=== PATIENT | female | born 1990 | race Caucasian/White ===

== ENCOUNTER 2018-09-04 09:59 | Observation (INO) | payer OTHER ==
[~2018-09-04] VITALS: Ht 165.1 cm; Wt 78.0 kg
--- NOTE | 2018-09-04 09:59 | NUR ---
RHODA LEDEZMA presented to unit from Home, with c/o SWELLING. RHODA LEDEZMA weighed, gowned, voided, and to bed. EFHM and TOCO applied, VS taken. RHODA LEDEZMA oriented to bed controls, call light, TV, heat, and A/C controls.
[2018-09-04 10:03] VITALS: BP 135/65
[2018-09-04 10:51] LABS: BILIRUBIN,URINE NEGATIVE (NEGATIVE); CLARITY,URINE CLEAR; COLOR,URINE YELLOW; GLUCOSE, URINE (UA) NEGATIVE (NEGATIVE); KETONES,URINE NEGATIVE (NEGATIVE); LEUKOCYTE ESTERASE ,URINE 1+ (NEGATIVE); NITRITE,URINE NEGATIVE (NEGATIVE); PH,URINE 7 (5-9); PROTEIN,URINE NEGATIVE (NEGATIVE); UROBILINOGEN,URINE NORMAL (NORMAL)
[2018-09-04 11:01] LABS: BACTERIA,URINE NEGATIVE /HPF
--- NOTE | 2018-09-04 11:20 | NUR ---
Dr. Delcid notified of patient's arrival and complaints. New orders received.
[2018-09-04 11:30] VITALS: BP 118/60
[2018-09-04] MEDS: NS IV 1000 ML 1,000 ML IV SCH (12:31)
[2018-09-04 12:57] LABS: BASOPHILS % (AUTO) 0 % (0-10); EOSINOPHILS % (AUTO) 0 % (0-10); HEMATOCRIT 35 % (35-52); HEMOGLOBIN 11.6 G/DL (11.5-16.0); LYMPHOCYTES # (AUTO) 1.3 X 10^3 (1.0-4.0); LYMPHOCYTES % (AUTO) 10 % (12-44); MEAN CORPUSCULAR HEMOGLOBIN 31 PG (25-34); MEAN CORPUSCULAR HGB CONC 33 G/DL (32-36); MEAN CORPUSCULAR VOLUME 94 FL (80-99); MEAN PLATELET VOLUME 10.7 FL (7.4-10.4); MONOCYTES # (AUTO) 0.4 X 10^3 (0.0-1.0); MONOCYTES % (AUTO) 3 % (0-12); NEUTROPHILS % (AUTO) 86 % (42-75); PLATELET COUNT 355 10^3/uL (130-400); WHITE BLOOD COUNT 12.8 10^3/uL (4.3-11.0)
[2018-09-04] MEDS: CLINDAMYCIN 600 MG/50 ML IVPB 50 ML IV SCH ×2 (13:06→22:09)
--- NOTE | 2018-09-04 13:06 | NUR ---
Cleocin IV up and infusing per order.
[2018-09-04 13:11] LABS: ALANINE AMINOTRANSFERASE 14 U/L (0-55); ALBUMIN 3.2 GM/DL (3.2-4.5); ALKALINE PHOSPHATASE 206 U/L (40-136); BILIRUBIN,TOTAL 0.5 MG/DL (0.1-1.0); BUN/CREATININE RATIO 8; CALCIUM 9.1 MG/DL (8.5-10.1); CARBON DIOXIDE 20 MMOL/L (21-32); CHLORIDE 110 MMOL/L (98-107); CREATININE SERUM 0.65 MG/DL (0.60-1.30); GFR ESTIMATED > 60; GLUCOSE 75 MG/DL (70-105); POTASSIUM 3.4 MMOL/L (3.6-5.0); SODIUM 139 MMOL/L (135-145); TOTAL PROTEIN 6.2 GM/DL (6.4-8.2)
[2018-09-04] MEDS ORDERED: ACETAMINOPHEN 500 MG TAB (TYLENOL) PO PRN (13:30)
--- NOTE | 2018-09-04 13:52 | NUR ---
Tylenol 500mg PO given at this time.
[2018-09-04 13:55] LABS: BAND NEUTROPHILS 0 %; BASOPHILS % (MANUAL) 0 %; EOSINOPHILS % (MANUAL) 0 %; LYMPHOCYTES % (MANUAL) 8 %; MONOCYTES % (MANUAL) 5 %; NEUTROPHILS % (MANUAL) 87 %; RBC MORPH NORMAL
[2018-09-04 13:58] LABS: ERYTHROCYTE SEDIMENTATION RATE 56 MM/HR (0-20)
[2018-09-04] MEDS ORDERED: HYDROcodone/APAP 7.5 MG/325 MG (LORTAB, LORCET PLUS) TABLET PO ONE ×2 (14:27→14:30)
[2018-09-04] MEDS ORDERED: predniSONE 20 MG TAB ONE (14:27)
[2018-09-04] MEDS: predniSONE 20 MG TAB PO SCH (14:33)
--- NOTE | 2018-09-04 14:33 | NUR ---
Lorcet 1 PO and Prednisone 40mg PO given at this time.
--- NOTE | 2018-09-04 15:55 | History & Physical ---
HPI History of Present Illness: 27 yo G5T4 currently at 36 weeks gestation with complaints of feet pain and burning. She is not with contractions. She reports the feet started bothering her within the last 24 hours. She denies any external chemicals, lotions, or new clothing. She denies fever. She has no idea if she has an autoimmune process. Her mother has Sjorgens syndrome. Source: patient Exam Limitations: no limitations Date seen by provider: Sep 04, 2018 Time Seen by Provider: 15:00 Attending Physician Heather Melara MD PCP Heather Melara MD Consult Date of Admission Home Medications Home Medications Reviewed patient Home Medication Reconciliation performed by pharmacy medication reconciliations electronic lab technician and/or nursing. Patients Allergies have been reviewed. Allergies Coded Allergies: cefuroxime (Verified Allergy, Unknown, Rash, 09/04/18) iodine (Verified Allergy, Unknown, Rash, 09/04/18) latex (Verified Allergy, Unknown, Rash, 09/04/18) [id number] Hx Patient Social History Marrital Status: civil union Number of Children: 4 Recreational Drug Use: Yes (in past) Recent Foreign Travel: No Contact w/other who traveled: No Recent Infectious Disease Expo: No Physical Abuse Screen: Yes (FOB) Sexual Abuse: No Review of Systems (CHC) Constitutional: see HPI Reviewed Test Results Reviewed Test Results Lab Laboratory Tests Test 09/04/18 10:20 09/04/18 12:35 Range/Units Urine Color YELLOW Urine Clarity CLEAR Urine pH 7 5-[address] 1.005 L 1.016-1.022 Urine Protein NEGATIVE NEGATIVE Urine Glucose (UA) NEGATIVE NEGATIVE Urine Ketones NEGATIVE NEGATIVE Urine Nitrite NEGATIVE NEGATIVE Urine Bilirubin NEGATIVE NEGATIVE Urine Urobilinogen NORMAL NORMAL MG/DL Urine Leukocyte Esterase 1+ H NEGATIVE Urine RBC (Auto) NEGATIVE NEGATIVE Urine RBC NONE /HPF Urine WBC NONE /HPF Urine Squamous Epithelial Cells 10-25 H /HPF Urine Crystals NONE /LPF Urine Bacteria NEGATIVE /HPF Urine Casts NONE /LPF Urine Mucus NEGATIVE /LPF Urine Culture Indicated NO White Blood Count 12.8 H 4.3-11.0 10^3/uL Red Blood Count 3.72 L 4.35-5.85 10^6/uL Hemoglobin 11.6 11.5-16.0 G/DL Hematocrit 35 35-52 % Mean Corpuscular Volume 94 80-99 FL Mean Corpuscular Hemoglobin 31 25-34 PG Mean Corpuscular Hemoglobin Concent 33 32-36 G/DL Red Cell Distribution Width 13.0 10.0-14.5 % Platelet Count 355 130-400 10^3/uL Mean Platelet Volume 10.7 H 7.4-10.4 FL Neutrophils (%) (Auto) 86 H 42-75 % Lymphocytes (%) (Auto) 10 L 12-44 % Monocytes (%) (Auto) 3 0-12 % Eosinophils (%) (Auto) 0 0-10 % Basophils (%) (Auto) 0 0-10 % Neutrophils # (Auto) 11.0 H 1.8-7.8 X 10^3 Lymphocytes # (Auto) 1.3 1.0-4.0 X 10^3 Monocytes # (Auto) 0.4 0.0-1.0 X 10^3 Eosinophils # (Auto) 0.0 0.0-0.3 10^3/uL Basophils # (Auto) 0.0 0.0-0.1 10^3/uL Neutrophils % (Manual) 87 % Lymphocytes % (Manual) 8 % Monocytes % (Manual) 5 % Eosinophils % (Manual) 0 % Basophils % (Manual) 0 % Band Neutrophils 0 % Blood Morphology Comment NORMAL Erythrocyte Sedimentation Rate 56 H 0-20 MM/HR Sodium Level 139 135-145 MMOL/L Potassium Level 3.4 L 3.6-5.0 MMOL/L Chloride Level 110 H 98-107 MMOL/L Carbon Dioxide Level 20 L 21-32 MMOL/L Anion Gap 9 5-14 MMOL/L Blood Urea Nitrogen 5 L 7-18 MG/DL Creatinine 0.65 0.60-1.30 MG/DL Estimat Glomerular Filtration Rate > 60 BUN/Creatinine Ratio 8 Glucose Level 75 70-105 MG/DL Calcium Level 9.1 8.5-10.1 MG/DL Corrected Calcium 9.7 8.5-10.1 MG/DL Total Bilirubin 0.5 0.1-1.0 MG/DL Aspartate Amino Transf (AST/SGOT) 14 5-34 U/L Alanine Aminotransferase (ALT/SGPT) 14 0-55 U/L Alkaline Phosphatase 206 H 40-136 U/L C-Reactive Protein High Sensitivity 1.81 H 0.00-0.50 MG/DL Total Protein 6.2 L 6.4-8.2 GM/DL Albumin 3.2 3.2-4.5 GM/DL Physical Exam-([facility]) Physical Exam Vital Signs VS - Last 72 Hours, by Label 09/04/18 10:03 Temp 98.0 Pulse 99 Resp 18 B/P (MAP) 135/65 (88) O2 Delivery Room Air Capillary Refill : General Appearance: mild distress (due to feet pain with pressure) HEENT: pharynx normal Neck: supple Respiratory: lungs clear Cardiovascular: regular rate, rhythm Gastrointestinal: soft Back: normal inspection Extremities: normal capillary refill, other (feet are mildly swollen and erythema noted encompassing the entire foot at distal legs. Heat noted to touch.) Assessment/Plan Assessment/Plan Admission Dx 1. Bilateral lower extremities swelling and inflammation--ddx of cellulitis vs vascultis vs swelling of term 2. IUP at 36 weeks gestation, non-labor Admission Status: Observation Assessment & Plan 1. Bilateral lower extremities swelling and inflammation--ddx of cellulitis vs vascultis vs swelling of term -admit for observation -IVFs at 80cc/hr -KEVIN pending -sed rate and crp indicate an inflammatory process. Will cover with prednisone 40mg po q day. -with possiblity of infection/cellulitis, she was placed on cleocin (since allergic to cephalosporins) 2. IUP at 36 weeks gestation, non-labor -NST q day HEATHER EMLARA MD Sep 04, 2018 15:55
--- NOTE | 2018-09-04 16:00 | NUR ---
Patient transferred to room 302. Patient oriented to room.
[2018-09-04 18:57] LABS: AMPHETAMINE SCREEN, URINE NEGATIVE (NEGATIVE); BARBITURATE SCREEN URINE NEGATIVE (NEGATIVE); BENZODIAZEPINES SCREEN URINE NEGATIVE (NEGATIVE); CANNABINOID SCREEN, URINE POSITIVE (NEGATIVE); COCAINE SCREEN URINE NEGATIVE (NEGATIVE); METHADONE STAT NEGATIVE (NEGATIVE); METHAMPHETAMINE SCREEN URINE S NEGATIVE (NEGATIVE); OPIATE SCREEN URINE NEGATIVE (NEGATIVE); OXYCODONE STAT NEGATIVE (NEGATIVE); PROPOXYPHENE STAT NEGATIVE (NEGATIVE); TRICYCLIC ANTIDEPRESSANTS SCRE NEGATIVE (NEGATIVE)
--- NOTE | 2018-09-04 19:30 | NUR ---
Report to Megan Richardson RN.
[2018-09-04] MEDS ORDERED: MELA10TA2 PO (19:42)
[2018-09-04] MEDS ORDERED: PREN1TAB79 PO (19:42)
[2018-09-04] MEDS ORDERED: DIPH25CA79 PO (19:42)
[2018-09-04] MEDS ORDERED: HYDR50CA PO (19:42)
--- NOTE | 2018-09-04 20:26 | NUR ---
Pt ambulating in halls at this time with s.o, no ss distress noted.
[2018-09-04] MEDS ORDERED: ZOLPIDEM 5 MG (AMBIEN) TAB ONE (22:10)
[2018-09-04] MEDS ORDERED: ZOLPIDEM 5 MG (AMBIEN) TAB PO PRN (22:15)
[2018-09-04 22:33] VITALS: BP 120/61
[2018-09-04] MEDS ORDERED: NS IV 1000 ML 1,000 ML IV SCH ×2 (23:00)
[2018-09-05] MEDS: NS IV 1000 ML 1,000 ML IV SCH (02:17)
[2018-09-05] MEDS: CLINDAMYCIN 600 MG/50 ML IVPB 50 ML IV SCH (07:31)
--- NOTE | 2018-09-05 07:40 | NUR ---
DR. MELARA HERE TO SEE PT. PLAN FOR DISCHARGE. AMBULATING IN THE [place]. STATES FEELING BETTER.
--- NOTE | 2018-09-05 08:07 | NUR ---
EFM APPLIED FOR NST. VERY ACTIVE FETUS.
--- NOTE | 2018-09-05 08:10 | NUR ---
A.M. ASSESSMENT COMPLETED. VSS.
[2018-09-05 08:11] VITALS: BP 126/69
[2018-09-05] MEDS ORDERED: PRD20T PO (08:24)
[2018-09-05] MEDS ORDERED: CLIN300C3 PO (08:24)
--- NOTE | 2018-09-05 08:26 | Discharge Inst-Simple/Standard ---
Discharge Inst-Standard Discharge Medications New, Converted or Re-Newed RX: Transmitted to Pharmacy Patient Instructions/Follow Up Plan of Care/Instructions/FU: FU with Dr Melara this Friday at [facility]. Take 2 (total of 40mg) prednisone each day for 3 days. Take Cleocin as instructed. Activity as Tolerated: Yes Discharge Diet: Regular Diet Return to The Hospital For: Fever or worseing lower extremity pain HETAHER MELARA MD Sep 05, 2018 08:26
--- NOTE | 2018-09-05 08:32 | Discharge Summary ---
Diagnosis/Chief Complaint Date of Admission September 04, 2018 Date of Discharge September 05, 2018 Admission Diagnosis Admission Diagnosis 1. Lower extremity--vasculitis 2. IUP at 36 weeks. Discharge Diagnosis 1. Lower extremity--vasculitis 2. IUP at 36 weeks. Chief Complaint/HPI Chief Complaint/HPI 27 yo G5T4 currently at 36 weeks gestation with complaints of feet pain and burning. She is not with contractions. She reports the feet started bothering her within the last 24 hours. She denies any external chemicals, lotions, or new clothing. She denies fever. She has no idea if she has an autoimmune process. Her mother has Sjorgens syndrome. Discharge Summary-Simple/Stand Consultations Discharge Physical Examination Allergies: Coded Allergies: cefuroxime (Verified Allergy, Unknown, Rash, 09/04/18) iodine (Verified Allergy, Unknown, Rash, 09/04/18) latex (Verified Allergy, Unknown, Rash, 09/04/18) Vitals & I&Os Vital Sign - Last 12Hours Date Time Temp Pulse Resp B/P (MAP) Pulse Ox O2 Delivery O2 Flow Rate FiO2 09/05/18 08:11 98.5 74 18 126/69 (88) 99 Room Air General Appearance: No Acute Distress Respiratory: Clear to Auscultation Cardiovascular: Regular Rate Abdominal: Soft Extremities: Other (Erythema and swelling markedly down of the distal legs and feet. Pain is minimal) Neuro: Normal Gait Psych/Mental Status: Mental Status NL Hospital Course Was the Problem List Reviewed?: Yes Patient was admitted for observation during the afternoon of September 04, 2018. At that time patient was felt to have either cellulitis or vasculitis of the lower extremities primarily involving the feet as well as the distal legs. Patient was started on Cleocin 600 mg IV every 8 hours. She was also given a dose of 40 mg prednisone. monitor was reactive. There was no contractions. Throughout the late p.m. of September 04 in frameman of September 05 patient had markedly improvement of the lower extremity erythema and heat. In the morning she was walking and in no discomfort. She was felt ready for dismissal with follow-up in one week at the clinic at [facility]. She will be discharged to home on prednisone 40 mg which she will take daily for 3 days and also Cleocin 300 mg twice daily for the next week. All questions answered. Discharge Instructions to patient/family Please see electronic discharge instructions given to patient. Discharge Medications Reviewed and agree with Discharge Medication list on patient's Discharge Instruction sheet HEATHER MELARA MD Sep 05, 2018 08:32
[2018-09-05] MEDS ORDERED: ZOLP5TAB PO (08:36)
[2018-09-05 08:37] VITALS: BP 126/69
--- NOTE | 2018-09-05 08:45 | NUR ---
ENTERED ROOM TO FIND PT NOT IN ROOM OR ON MONITOR. GOWN AND MONITORS ON THE FLOOR.
[2018-09-05] MEDS ORDERED: predniSONE 20 MG TAB ONE (08:58)
--- NOTE | 2018-09-05 09:10 | NUR ---
PT AND S.O. RETURNED TO ROOM. PREPARING FOR DISCHARGE. STATES HAD BEEN DOWNSTAIRS.
[2018-09-05] MEDS: predniSONE 20 MG TAB PO SCH (09:25)
--- NOTE | 2018-09-05 09:30 | NUR ---
DISCHARGE INSTRUCTIONS REVIEWED WITH COPY TO PT. STATES UNDERSTANDING OF ALL INSTRUCTIONS AND NEED TO F/U SCHEDULED AND NEEDED.
[2018-09-05 09:35] VITALS: BP 126/69
--- NOTE | 2018-09-05 09:35 | NUR ---
DISMISSED AMB FROM [facility] IN STABLE CONDITION TO [facility]ILY [facility] BY RADHA SALCIDO.
--- OUTSIDE RECORDS SUMMARY | 2018-09-11 19:23 | XMS REPORT ---
Author Author Dora Khan [facility] Address [address] [place], [place] [id number] Care Team Providers Care Doctor Osteopathic Name Role Phone Dora Khan PCP Ulices Winter PreferredProvider Allergies and Adverse Reactions Name Reaction Notes Ceftin fever Latex burning Plan of Treatment Planned Activity Comments Planned Date Planned Time Plan/Goal Hx of pre-term delivery x2, Hep C carrier, child with spina bifida, meth abuse and late care 05/18/2018 10:45 AM Hepatitis C Medications Active Name Start Date Estimated Completion Date SIG Comments Vitamin oral cetirizine 10 mg oral tablet 07/13/2018 11/10/2018 take 1 tablet (10 mg) by oral route once daily for 30 days Name Start Date Expiration Date SIG Comments hydrocodone-acetaminophen 10-325 mg oral tablet 06/07/2014 take 1 tablet by oral route 2 times a day Xanax 1 mg oral tablet 06/07/2014 take 1 tablet by oral route 2 times a day Vistaril 50 mg oral capsule 07/05/2014 08/04/2014 take 1 capsule by oral route 3 times a day as needed for 30 days azithromycin 250 mg oral tablet 08/29/2014 09/03/2014 take 2 tablets (500 mg) by oral route once daily for 1 day then 1 tablet (250 mg) by oral route once daily for 4 days Flagyl 500 mg oral tablet 09/19/2014 09/26/2014 take 1 tablet (500 mg) by oral route 2 times per day for 7 days clindamycin HCl 300 mg oral capsule 12/03/2014 12/10/2014 take 1 capsule (300 mg) by oral route 2 times per day for 7 days Ambien 5 mg oral tablet 03/20/2015 take 1 tablet by oral route once a day (at bedtime) as needed Xanax 1 mg oral tablet 10/04/2015 11/03/2015 take 1 tablet by oral route 3 times a day for 30 days azithromycin 250 mg oral tablet 05/07/2016 05/12/2016 take 2 tablets (500 mg) by oral route once daily for 1 day then 1 tablet (250 mg) by oral route once daily for 4 days Flonase Allergy Relief 50 mcg/actuation nasal spray,suspension 05/07/2016 inhale 1 spray (50 mcg) in each nostril by intranasal route once daily Fetzima 40 mg oral capsule,extended release 24 hr 09/16/2016 12/15/2016 take 1 capsule (40 mg) by oral route once daily at approximately the same time each day for 30 days Keflex 500 mg oral capsule 12/04/2016 take 1 capsule by oral route 3 times a day Bactrim DS 800-160 mg oral tablet 12/04/2016 take 1 tablet by oral route twice daily for 7 days mupirocin 2 % topical ointment 10/07/2017 10/12/2017 apply a small amount to the affected area by topical route 3 times per day for 5 days Bactrim DS 800-160 mg oral tablet 10/10/2017 10/20/2017 take 1 tablet by oral route every 12 hours for 10 days Klonopin 1 mg oral tablet 11/17/2017 12/17/2017 take 1 tablet (1 mg) by oral route 3 times per day for 30 days buspirone 10 mg oral tablet 01/08/2018 02/07/2018 take 1 tablet (10 mg) by oral route 3 times per day for 30 days hydroxyzine HCl 25 mg oral tablet 01/08/2018 02/07/2018 take 1 tablet (25 mg) by oral route 3 times per day as needed for 30 days Bonjesta 20-20 mg oral tablet,IR,delayed rel,biphasic 04/15/2018 08/13/2018 take 1 tablet by oral route 2 times per day in the morning and at bedtime for 60 days Metrogel Vaginal 0.75 % vaginal gel 04/21/2018 04/26/2018 insert 1 applicatorful (37.5 mg) by vaginal route once daily at bedtime for 5 days Augmentin 875-125 mg oral tablet 07/13/2018 07/20/2018 take 1 tablet by oral route every 12 hours for 7 days Discontinued Name Start Date Discontinued Date SIG Comments Prozac 20 mg oral capsule 04/12/2014 05/06/2014 take 1 capsule (20 mg) by oral route once daily for 30 days Depakote ER 250 mg oral tablet extended release 24 hr 07/05/2014 08/05/2014 take 1 tablet by oral route daily for 30 days Ventolin HFA 90 mcg/actuation inhalation HFA aerosol inhaler 07/30/2016 04/15/2018 inhale 1 - 2 puffs (90 - 180 mcg) by inhalation route every 4-6 hours as needed cephalexin 500 mg oral capsule 07/15/2017 07/18/2017 take 1 capsule (500 mg) by oral route every 12 hours for 7 days NuvaRing 0.12-0.015 mg/24 hr vaginal ring 07/18/2017 10/06/2017 insert 1 vaginal ring by vaginal route once a month leave in place for 3 weeks, remove for 1 week hydrocodone-acetaminophen 10-325 mg oral tablet 11/17/2017 04/15/2018 take 1 tablet by oral route every 6 hours as needed for pain Fetzima 40 mg oral capsule,extended release 24 hr 01/02/2018 04/15/2018 take 1 capsule (40 mg) by oral route once daily at approximately the same time each day for 30 days Prozac 20 mg oral capsule 01/07/2018 04/15/2018 take 1 capsule (20 mg) by oral route once daily in the evening for 30 days Problem List Description Status Onset Anxiety Active Scoliosis of thoracic spine Active Depression Active 05/16/2014 Abdominal pain Active 07/13/2015 Hepatitis C Active Abscess, vulva Active 10/06/2017 MRSA (methicillin resistant staph aureus) culture positive Active 10/10/2017 Vital Signs Date Time BP-Sys(mm[Hg] BP-Tika(mm[Hg]) HR(bpm) RR(rpm) Temp WT HT HC BMI BSA BMI Percentile O2 Sat(%) 07/13/2018 1:17:00 PM 133 mmHg 62 mmHg 97 bpm 18 rpm 98.1 F 169.5 lbs 64 in 29.0943 kg/m 1.8633 m 100 % 04/15/2018 2:50:00 PM 134 mmHg 67 mmHg 80 bpm 98.1 F 162 lbs 64 in 27.81 kg/m2 1.82 m2 10/10/2017 10:42:00 AM 119 mmHg 68 mmHg 149 bpm 97.5 F 155 lbs 64 in 26.6054 kg/m 1.7818 m 10/06/2017 1:52:00 PM 140 mmHg 80 mmHg 99 bpm 98.2 F 148 lbs 65 in 24.63 kg/m2 1.75 m2 07/30/2017 3:51:00 PM 130 mmHg 80 mmHg 112 bpm 16 rpm 98.1 F 150 lbs 65 in 24.9611 kg/m 1.7665 m 99 % 07/18/2017 10:22:00 AM 135 mmHg 68 mmHg 92 bpm 99 F 162 lbs 65 in 26.96 kg/m2 1.84 m2 03/29/2017 11:14:00 AM 120 mmHg 78 mmHg 90 bpm 20 rpm 98.5 F 167 lbs 65 in 27.79 kg/m 1.8639 m 100 % 12/18/2016 10:28:00 AM 110 mmHg 80 mmHg 106 bpm 16 rpm 96.7 F 148 lbs 65 in 24.63 kg/m2 1.75 m2 100 % 07/30/2016 9:18:00 AM 110 mmHg 70 mmHg 106 bpm 16 rpm 97.3 F 143.125 lbs 65 in 23.82 kg/m2 1.73 m2 99 % 11/03/2015 11:35:00 AM 122 mmHg 88 mmHg 121 bpm 16 rpm 97.2 F 146 lbs 65 in 24.2954 kg/m 1.7427 m 100 % 10/04/2015 1:07:00 PM 130 mmHg 70 mmHg 95 bpm 16 rpm 97.5 F 149 lbs 65 in 24.79 kg/m2 1.76 m2 98 % 09/07/2015 3:55:00 PM 130 mmHg 86 mmHg 129 bpm 18 rpm 97.9 F 137.5 lbs 65 in 22.881 kg/m 1.6912 m 98 % 07/24/2015 11:21:00 AM 130 mmHg 80 mmHg 110 bpm 18 rpm 97.4 F 142 lbs 65 in 23.63 kg/m2 1.72 m2 98 % 07/11/2015 2:12:00 PM 136 mmHg 77 mmHg 108 bpm 20 rpm 98.8 F 148 lbs 65 in 24.6282 kg/m 1.7546 m 06/29/2015 3:03:00 PM 120 mmHg 80 mmHg 102 bpm 16 rpm 97.4 F 153 lbs 64 in 26.26 kg/m2 1.77 m2 99 % 04/28/2015 10:42:00 AM 110 mmHg 70 mmHg 110 bpm 18 rpm 97.5 F 162 lbs 64 in 27.807 kg/m 1.8216 m 100 % 04/04/2015 10:16:00 AM 120 mmHg 70 mmHg 116 bpm 16 rpm 96.7 F 160 lbs 64 in 27.46 kg/m2 1.81 m2 100 % 03/07/2015 11:22:00 AM 160 mmHg 90 mmHg 141 bpm 16 rpm 96.7 F 169 lbs 64 in 29.0085 kg/m 1.8605 m 100 % 02/08/2015 2:10:00 PM 120 mmHg 80 mmHg 106 bpm 18 rpm 167 lbs 96 % 01/25/2015 1:47:00 PM 140 mmHg 72 mmHg 112 bpm 18 rpm 97.9 F 169 lbs 64 in 29.01 kg/m2 1.86 m2 100 % 01/09/2015 8:49:00 AM 132 mmHg 85 mmHg 149 bpm 16 rpm 97.2 F 173 lbs 99 % 12/02/2014 10:17:00 AM 120 mmHg 80 mmHg 96 bpm 16 rpm 97.3 F 164 lbs 98 % 11/09/2014 1:47:00 PM 120 mmHg 82 mmHg 106 bpm 16 rpm 97.6 F 160 lbs 99 % 10/14/2014 9:51:00 AM 120 mmHg 80 mmHg 106 bpm 16 rpm 97.6 F 163 lbs 98 % 10/05/2014 2:59:00 PM 120 mmHg 80 mmHg 110 bpm 16 rpm 96.7 F 153 lbs 98 % 08/29/2014 9:49:00 AM 120 mmHg 85 mmHg 118 bpm 16 rpm 97.5 F 154 lbs 98 % 08/05/2014 9:48:00 AM 130 mmHg 80 mmHg 98 bpm 16 rpm 97.3 F 156 lbs 100 % 06/07/2014 2:41:00 PM 145 mmHg 100 mmHg 126 bpm 16 rpm 98 F 133 lbs 97 % 05/06/2014 1:58:00 PM 130 mmHg 80 mmHg 94 bpm 16 rpm 98.2 F 140 lbs 97 % 04/12/2014 2:08:00 PM 118 mmHg 70 mmHg 95 bpm 16 rpm 98.2 F 149 lbs 97 % Social History Name Description Comments Alcohol Current some day Tobacco Current every day smoker Drug abuse History of Procedures Date Ordered Description Order Status 01/25/2015 12:00 AM COMPLETE CBC W/AUTO DIFF WBC Reviewed 01/25/2015 12:00 AM COMPREHEN METABOLIC PANEL Reviewed 01/25/2015 12:00 AM BORDETELLA ANTIBODY Reviewed 01/25/2015 12:00 AM ASSAY OF MERCURY Reviewed 01/25/2015 12:00 AM ASSAY OF FREE THYROXINE Reviewed 01/25/2015 12:00 AM ASSAY THYROID STIM HORMONE Reviewed 01/25/2015 12:00 AM ASSAY OF AMYLASE Reviewed 01/25/2015 12:00 AM ASSAY OF LIPASE Reviewed 06/29/2015 12:00 AM ECHO EXAM OF ABDOMEN Reviewed 07/24/2015 12:00 AM CHORIONIC GONADOTROPIN ASSAY Reviewed 12/27/2016 12:00 AM CHORIONIC GONADOTROPIN ASSAY Reviewed 07/18/2017 10:42 AM URINE TEST Reviewed 07/18/2017 12:00 AM CHYLMD TRACH DNA AMP PROBE Reviewed 07/18/2017 12:00 AM N.GONORRHOEAE DNA AMP PROB Reviewed 07/18/2017 12:00 AM DETECT AGENT NOS DNA AMP Reviewed 07/18/2017 12:00 AM TRICHOMONAS VAGINALIS AMPLIF Reviewed 07/18/2017 12:00 AM REMOVE INTRAUTERINE DEVICE Reviewed 10/06/2017 12:00 AM DRAINAGE OF SKIN ABSCESS Reviewed 10/06/2017 12:00 AM DRAINAGE OF SKIN ABSCESS Reviewed 10/06/2017 12:00 AM MICROBIOLOGY PROCEDURE Reviewed 10/10/2017 12:00 AM DRAINAGE OF SKIN ABSCESS Reviewed 10/10/2017 12:00 AM DRAINAGE OF SKIN ABSCESS Reviewed 04/21/2018 12:00 AM OB US >/=14 WKS SNGL FETUS Reviewed 04/15/2018 12:00 AM CYTOPATH C/V THIN LAYER Reviewed 04/15/2018 12:00 AM SPECIMEN HANDLING OFFICE-LAB Reviewed 04/15/2018 12:00 AM N.GONORRHOEAE DNA AMP PROB Reviewed 04/15/2018 12:00 AM CHLAMYDIA CULTURE Reviewed 04/15/2018 12:00 AM HIV-1ANTIBODY Reviewed 04/15/2018 12:00 AM URINALYSIS AUTO W/SCOPE Reviewed 04/15/2018 12:00 AM OBSTETRIC PANEL Reviewed 04/15/2018 12:00 AM ASSAY OF FERRITIN Reviewed 04/15/2018 12:00 AM URINE DRUG SCREEN RAPID Reviewed 04/15/2018 12:00 AM DETECT AGENT NOS DNA AMP Reviewed 04/15/2018 12:00 AM TRICHOMONAS VAGINALIS AMPLIF Reviewed 04/15/2018 12:00 AM HEPATITIS C AB TEST Reviewed 04/15/2018 12:00 AM HERPES SIMPLEX TYPE 1 TEST Reviewed 04/15/2018 12:00 AM HERPES SIMPLEX TYPE 2 TEST Reviewed 05/07/2018 12:00 AM OB US LIMITED FETUS(S) Reviewed 04/28/2018 12:00 AM Consult/Referral Reviewed 06/22/2018 12:00 AM Rapid urine drug screen Reviewed 06/22/2018 12:00 AM HEP A VACCINE ADULT IM Reviewed 06/24/2018 12:00 AM Consult/Referral Reviewed 08/03/2018 12:00 AM GLUCOSE TOLERANCE TEST (GTT) Reviewed 08/03/2018 12:00 AM COMPLETE CBC W/AUTO DIFF WBC Reviewed 08/03/2018 12:00 AM RH IG FULL-DOSE IM Reviewed 08/03/2018 12:00 AM Type and screen Reviewed 08/03/2018 12:00 AM ASSAY OF FERRITIN Reviewed 08/03/2018 12:00 AM SYPHILIS TEST NON-TREPONEMAL ANTIBODY QUAL Reviewed 08/03/2018 12:00 AM TDAP VACCINE 7 YRS/> IM Reviewed 08/03/2018 12:00 AM IMMUNIZATION ADMIN Reviewed 08/29/2014 12:00 AM SPECIMEN HANDLING OFFICE-LAB Reviewed 08/29/2014 12:00 AM CYTOPATH C/V MANUAL Reviewed 08/29/2014 12:00 AM CHYLMD TRACH DNA AMP PROBE Reviewed 08/29/2014 12:00 AM N.GONORRHOEAE DNA AMP PROB Reviewed 08/29/2014 12:00 AM TISSUE EXAM FOR FUNGI Reviewed 08/29/2014 12:00 AM SMEAR WET MOUNT SALINE/INK Reviewed Results Summary Date and Description Results 08/29/2014 10:04 AM WET PREP NO TRICH SEEN CLUE CELLS PRESENT 01/25/2015 2:32 PM WBC 7.3 RBC 4.42 HGB 14.50 g/dLHCT 41.30 %MCV 93.0 fLMCH 32.80 pgMCHC 35.10 g/dLRDW SD 41 RDW CV 12.10 %MPV 10.50 fLPLT 274 NRBC# 0.00 NRBC% 0.0 %NEUT 64.90 %%LYMP 28.50 %%MONO 5.90 %%EOS 0.40 %%BASO 0.30 %#NEUT 4.77 #LYMP 2.09 #MONO 0.43 #EOS 0.03 #BASO 0.02 MANUAL DIFF NOT IND AMYLASE 39 IU/LLIPASE 20.0 U/LGLUCOSE 102.0 mg/dLSODIUM 140.0 mmol/LPOTASSIUM 3.80 mmol/LCHLORIDE 105.0 mmol/LCO2 25.0 mmol/LBUN 4.0 mg/dLCREATININE 0.70 mg/dL SGOT/AST 36.0 IU/LSGPT/ALT 84.0 IU/LALK PHOS 84.0 IU/LTOTAL PROTEIN 8.20 g/dLALBUMIN 4.70 g/dLTOTAL BILI 0.40 mg/dLCALCIUM 9.90 mg/dLAGE 24 GFR NonAA 101 GFR AA 122 eGFR >60 mL/min/1.73meGFR AA* >60 FREE T4 1.14 TSH 1.380 uIU/mLHep A Ab, IgM Negative HBsAg Screen Negative Hep B Core Ab, IgM Negative Hep C Virus Ab >11.0 Mercury, Blood 3.6 07/24/2015 12:08 PM TEST NEGATIVE 12/31/2016 2:32 PM TEST NEGATIVE 07/18/2017 10:42 AM Test, Urine negative 10/06/2017 3:53 PM SPECIMEN SOURCE: VULVA ABSCESS #2 SPECIMEN SOURCE: VULVA ABSCESS #2 04/15/2018 4:12 PM COLOR YELLOW APPEARANCE CLEAR SPEC GRAV 1.010 pH 7.0 PROTEIN NEGATIVE GLUCOSE NEGATIVE KETONE NEGATIVE BILIRUBIN NEGATIVE BLOOD NEGATIVE NITRITE NEGATIVE LEUK SCREEN NEGATIVE WBC/HPF 0-5 RBC/HPF NEGATIVE CASTS/LPF NEGATIVE CRYSTALS NEGATIVE MUCOUS THRDS NEGATIVE BACTERIA NEGATIVE EPITH CELLS FEW SQUAMOUS TRICHOMONAS NEGATIVE YEAST NEGATIVE CULT ORDERED YES Cannabinoids (THC) NEGATIVE Phencyclidine (PCP) NEGATIVE Cocaine NEGATIVE Methamphetamine NEGATIVE Opiates NEGATIVE Amphetamine NEGATIVE Benzodiazepines NEGATIVE Tricyclic Antidepres NEGATIVE Methadone NEGATIVE Barbiturates NEGATIVE Oxycodone NEGATIVE Propoxyphene (PPX) NEGATIVE 04/15/2018 4:30 PM WBC 10.8 RBC 4.03 HGB 12.6 HCT 37.7 MCV 94 MCH 31.3 MCHC 33.4 RDW SD 44 RDW CV 12.8 MPV 10.8 PLT 240 NRBC# 0.00 NRBC% 0.0 %NEUT 70.8 %LYMP 24.0 %MONO 3.5 %EOS 0.8 %BASO 0.3 #NEUT 7.64 #LYMP 2.59 #MONO 0.38 #EOS 0.09 #BASO 0.03 MANUAL DIFF NOT IND 04/15/2018 4:41 PM HIV AG/AB COMBO 0.10 FERRITIN 78 Hep C Virus Ab >11.0 HSV 1 IgG, Type Spec 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, 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 06/22/2018 10:09 AM Cannabinoids (THC) NON-NEGATIVE Phencyclidine (PCP) NEGATIVE Cocaine NEGATIVE Methamphetamine NEGATIVE Opiates NEGATIVE Amphetamine NEGATIVE Benzodiazepines NEGATIVE Tricyclic Antidepres NEGATIVE Methadone NEGATIVE Barbiturates NEGATIVE Oxycodone NEGATIVE Propoxyphene (PPX) NEGATIVE 08/03/2018 2:29 PM GLUCOSE 126 SODIUM 137 POTASSIUM 3.5 CHLORIDE 110 CO2 21 BUN 5 CREATININE 0.67 SGOT/AST 18 SGPT/ALT 27 ALK PHOS 114 TOTAL PROTEIN 5.3 ALBUMIN 3.2 TOTAL BILI 0.2 CALCIUM 8.4 AGE 27 GFR NonAA 104 GFR AA 126 eGFR 104 eGFR AA* >60 08/03/2018 2:59 PM FERRITIN 13 WBC 12.1 RBC 3.26 HGB 10.4 HCT 31.0 MCV 95 MCH 31.9 MCHC 33.5 RDW SD 44 RDW CV 12.7 MPV 9.8 PLT 381 NRBC# 0.00 NRBC% 0.0 %NEUT 75.3 %LYMP 16.0 %MONO 5.9 %EOS 1.3 %BASO 0.2 #NEUT 9.13 #LYMP 1.94 #MONO 0.71 #EOS 0.16 #BASO 0.03 MANUAL DIFF NOT IND RPR Non Reactive History Of Immunizations Name Date Admin Mfg Name Mfg Code Trade Name Lot# Route Inj Vis Given Vis Pub CVX HepA 06/22/2018 [employer] SKB HAVRIX-ADULT [id number] Intramuscular Right Arm 06/22/2018 03/03/2018 52 Tdap 08/03/2018 [employer] SKB BOOSTRIX [id number] Intramuscular Right Deltoid 08/03/2018 03/03/2018 115 History of Past Illness Name Date of Onset Comments Anxiety Scoliosis of thoracic spine Depression 05/16/2014 Hepatitis C Abdominal pain 07/13/2015 Anemia Asthma Abscess, vulva 10/06/2017 MRSA (methicillin resistant staph aureus) culture positive 10/10/2017 Scoliosis Scoliosis Apr 12 2014 2:02PM Pain management counseling, encounter for Apr 12 2014 2:02PM Anxiety Apr 12 2014 2:02PM Depression Apr 12 2014 2:02PM Anxiety May 06 2014 1:59PM Scoliosis of thoracic spine May 06 2014 1:59PM Depression May 06 2014 1:59PM Depression Jun 07 2014 2:42PM Anxiety Jun 07 2014 2:42PM Scoliosis of thoracic spine Jun 07 2014 2:42PM Depression Aug 05 2014 9:50AM Anxiety Aug 05 2014 9:50AM Scoliosis of thoracic spine Aug 05 2014 9:50AM Routine gynecological examination Aug 29 2014 9:51AM Depression Aug 29 2014 9:51AM Anxiety Aug 29 2014 9:51AM Scoliosis of thoracic spine Aug 29 2014 9:51AM Depression Oct 05 2014 3:00PM Anxiety Oct 05 2014 3:00PM Scoliosis of thoracic spine Oct 05 2014 3:00PM Depression Oct 14 2014 9:52AM Anxiety Oct 14 2014 9:52AM Scoliosis of thoracic spine Oct 14 2014 9:52AM Depression Nov 09 2014 1:48PM Anxiety Nov 09 2014 1:48PM Scoliosis of thoracic spine Nov 09 2014 1:48PM Depression Dec 02 2014 10:19AM Anxiety Dec 02 2014 10:19AM Scoliosis of thoracic spine Dec 02 2014 10:19AM Depression Jan 09 2015 8:51AM Anxiety Jan 09 2015 8:51AM Scoliosis of thoracic spine Jan 09 2015 8:51AM Other fatigue Jan 25 2015 1:50PM Depression Jan 25 2015 1:50PM Generalized abdominal pain Jan 25 2015 1:50PM Depression Feb 08 2015 2:11PM Anxiety Feb 08 2015 2:11PM Scoliosis of thoracic spine Feb 08 2015 2:11PM Hepatitis C virus infection without hepatic coma, unspecified chronicity Feb 08 2015 2:11PM Depression Mar 07 2015 11:23AM Anxiety Mar 07 2015 11:23AM Scoliosis of thoracic spine Mar 07 2015 11:23AM Hepatitis C virus infection without hepatic coma, unspecified chronicity Mar 07 2015 11:23AM Depression Apr 04 2015 10:18AM Anxiety Apr 04 2015 10:18AM Scoliosis of thoracic spine Apr 04 2015 10:18AM Hepatitis C virus infection without hepatic coma, unspecified chronicity Apr 04 2015 10:18AM Depression Apr 28 2015 10:42AM Anxiety Apr 28 2015 10:42AM Scoliosis of thoracic spine Apr 28 2015 10:42AM Hepatitis C virus infection without hepatic coma, unspecified chronicity Apr 28 2015 10:42AM RUQ abdominal pain Jun 29 2015 3:05PM Depression Jun 29 2015 3:05PM Anxiety Jun 29 2015 3:05PM Scoliosis of thoracic spine Jun 29 2015 3:05PM Hepatitis C virus infection without hepatic coma, unspecified chronicity Jun 29 2015 3:05PM Abdominal Pain Jul 11 2015 2:19PM Amenorrhea Jul 24 2015 11:23AM LUQ abdominal pain Sep 07 2015 4:02PM Depression Sep 07 2015 4:02PM Anxiety Sep 07 2015 4:02PM Depression Oct 04 2015 1:09PM Anxiety Oct 04 2015 1:09PM Scoliosis of thoracic spine Oct 04 2015 1:09PM Depression Nov 03 2015 11:36AM Anxiety Nov 03 2015 11:36AM Scoliosis of thoracic spine Nov 03 2015 11:36AM Dizziness Jul 30 2016 9:22AM Moderate episode of recurrent major depressive disorder Jul 30 2016 9:22AM Other anxiety states Jul 30 2016 9:22AM Scoliosis of thoracic spine Jul 30 2016 9:22AM Moderate episode of recurrent major depressive disorder Dec 18 2016 10:29AM Anxiety Dec 18 2016 10:29AM Scoliosis of thoracic spine, unspecified scoliosis type Dec 18 2016 10:29AM Amenorrhea Dec 27 2016 11:42AM Pelvic pain Jan 03 2017 2:09PM Cellulitis of finger of left hand Mar 29 2017 11:16AM Family planning Jul 18 2017 10:31AM STD exposure Jul 18 2017 10:31AM IUD (intrauterine device) in place Jul 18 2017 10:31AM Moderate episode of recurrent major depressive disorder Jul 30 2017 3:52PM Anxiety Jul 30 2017 3:52PM Scoliosis of thoracic spine, unspecified scoliosis type Jul 30 2017 3:52PM Abscess, vulva Oct 06 2017 1:56PM Abscess Oct 10 2017 10:47AM MRSA (methicillin resistant staph aureus) culture positive Oct 10 2017 10:47AM test confirmed positive Apr 15 2018 2:55PM Hx of hepatitis C Apr 15 2018 2:55PM Hx of mixed drug abuse Apr 15 2018 2:55PM Late care in second trimester Apr 15 2018 2:55PM Late care Apr 15 2018 3:42PM Hyperemesis, antepartum, mild Apr 15 2018 2:55PM Hepatitis C antibody test positive Apr 27 2018 11:47AM 17 weeks gestation of Apr 27 2018 11:47AM History of delivery, currently Apr 28 2018 10:52AM Normal in multigravida in second trimester Jun 22 2018 9:47AM History of drug abuse Jun 22 2018 9:47AM Illicit drug use Jun 22 2018 9:47AM HEP A Jun 22 2018 10:12AM Acute non-recurrent frontal sinusitis Jul 13 2018 1:19PM Normal in multigravida in third trimester Aug 03 2018 1:43PM Need for Tdap vaccine Aug 03 2018 2:26PM Payers Insurance Name Company Name Plan Name Plan Number Policy Number Policy Group Number Start Date Sherry Powell [id number] N/A History of Encounters Visit Date Visit Type Provider 08/14/[address] Dora Khan MD 08/03/2018 Office visit Moise Hernadez MD 07/13/2018 Office visit Ashley Cummins WEB USER EXPERIENCE STRATEGIST 06/22/2018 Nurse visit Ashley Cummins WEB USER EXPERIENCE STRATEGIST 06/22/2018 Office visit Moise Hernadez MD 05/25/2018 Office visit Moise Hernadez MD 04/27/2018 Office visit Moise Hernadez MD 04/15/2018 Office visit Bushra Bryant APRN 12/16/2017 Hospital Yannick Painting MD 10/10/2017 Office visit Bushra Bryant WEB USER EXPERIENCE STRATEGIST 10/06/2017 Office visit Bushra Bryant APRN 07/30/2017 Office visit Ulices Winter APRN 07/18/[address] Dora Khan MD 03/30/2017 Surgery Parker Rutherford MD 03/29/2017 Office visit Roman Dubois PA-C 12/18/2016 Office visit lUices Winter APRN 10/24/2016 Hospital Yannick Painting MD 07/30/2016 Office visit Ulices Winter APRN 11/03/2015 Office visit Ulices Winter APRN 10/04/2015 Office visit Ulices Winter APRN 09/07/2015 Office visit Ulices Winter APRN 07/27/2015 Hospital Mike Sheffield DO 07/24/2015 Office visit Ulices Winter APRN 07/11/2015 Office visit Mike Sheffield DO 06/29/2015 Office visit Ulices Winter APRN 04/28/2015 Office visit Ulices Winter APRN 04/04/2015 Office visit Ulices Winter APRN 03/07/2015 Office visit Ulices Winter APRN 02/08/2015 Office visit Ulices Winter APRN 01/25/2015 Office visit Ulices Winter WEB USER EXPERIENCE STRATEGIST 01/09/2015 Office visit Ulices Winter APRN 12/02/2014 Office visit Ulices Winter APRN 11/09/2014 Office visit Ulices Winter APRN 10/14/2014 Office visit Ulices Winter WEB USER EXPERIENCE STRATEGIST 10/05/2014 Office visit Ulices Winter WEB USER EXPERIENCE STRATEGIST 08/29/2014 Office visit Ulcies Winter WEB USER EXPERIENCE STRATEGIST 08/05/2014 Office visit Ulices Winter APRN 06/07/2014 Office visit Ulices Wniter APRN 05/06/2014 Office visit Ulices Winter WEB USER EXPERIENCE STRATEGIST 04/12/2014 Office visit Ulices Winter WEB USER EXPERIENCE STRATEGIST 09/21/2011 [facility] Rama Watkins MD
--- OUTSIDE RECORDS SUMMARY | 2018-09-11 19:24 | XMS REPORT ---
Author Author Dora Khan [facility] Address [address] [place], [place] [id number] Care Team Providers Care Dump Truck Operator Name Role Phone Dora Khan PCP Ulices [...] Vis Given Vis Pub CVX HepA 06/22/2018 [employer] SKB HAVRIX-ADULT [id number] Intramuscular Right Arm 06/22/2018 03/03/2018 52 Tdap 08/03/2018 [employer] SKB BOOSTRIX [id number] Intramuscular Right Deltoid 08/03/2018 [...] Policy Group Number Start Date Sherry Powell [id number] N/A History of Encounters Visit Date Visit Type Provider 08/14/[address] Dora Khan MD 08/03/2018 Office visit Moise Hernadez MD 07/13/2018 Office visit Ashley Cummins OFFICE CHAIR ASSEMBLER 06/22/2018 Nurse visit Ashley Cummins OFFICE CHAIR ASSEMBLER 06/22/2018 Office visit Moise Hernadez MD 05/25/2018 Office visit Moise Hernadez MD 04/27/2018 Office visit Moise Hernadez MD 04/15/2018 Office visit Bushra Bryant APRN 12/16/2017 Hospital Yannick Painting MD 10/10/2017 Office visit Bushra Bryant OFFICE CHAIR ASSEMBLER 10/06/2017 Office visit Bushra Bryant APRN 07/30/2017 Office visit Ulices Winter APRN 07/18/[address] Dora Khan MD 03/30/2017 Surgery Parker Rutherford MD 03/29/2017 Office visit Roman Dubois PA-C 12/18/2016 Office visit Ulices Winter APRN 10/24/2016 Hospital Yannick Painting MD 07/30/2016 Office visit Ulices Winter APRN 11/03/2015 Office visit Ulices Winter APRN 10/04/2015 Office visit lUices Winter APRN 09/07/2015 Office visit Ulices Winter APRN 07/27/2015 Hospital Mike Sheffield DO 07/24/2015 Office visit Ulices Winter APRN 07/11/2015 Office visit Mike Sheffield DO 06/29/2015 Office visit Ulices Winter APRN 04/28/2015 Office visit Ulices Winter APRN 04/04/2015 Office visit Ulices Winter APRN 03/07/2015 Office visit Ulices Winter APRN 02/08/2015 Office visit Ulices Winter APRN 01/25/2015 Office visit Ulices Winter OFFICE CHAIR ASSEMBLER 01/09/2015 Office visit Ulices Winter APRN 12/02/2014 Office visit Ulices Winter APRN 11/09/2014 Office visit Ulices Winter APRN 10/14/2014 Office visit Ulices Winter OFFICE CHAIR ASSEMBLER 10/05/2014 Office visit Ulices Winter OFFICE CHAIR ASSEMBLER 08/29/2014 Office visit Ulices Winter OFFICE CHAIR ASSEMBLER 08/05/2014 Office visit Ulices Winter APRN 06/07/2014 Office visit Ulices Winter APRN 05/06/2014 Office visit Ulices Winter OFFICE CHAIR ASSEMBLER 04/12/2014 Office visit Ulices Winter OFFICE CHAIR ASSEMBLER 09/21/2011 [facility] Rama Watkins MD
--- OUTSIDE RECORDS SUMMARY | 2018-09-11 19:25 | XMS REPORT ---
Author Author Moise Hernadez [facility] Address [address] [place], [place] [id number] Care Team Providers Care Contract Manager Name Role Phone Moise Hernadez PCP Ulices Winter PreferredProvider Allergies and Adverse Reactions Name Reaction Notes Ceftin fever Latex burning Plan of Treatment Planned Activity Comments Planned Date Planned Time Plan/Goal Hx of pre-term delivery x2, Hep C carrier, child with spina bifida, meth abuse and late care 05/18/2018 10:45 AM Hepatitis C RPR W/REFLEX TO TP 08/03/2018 12:00 AM Medications Active Name Start Date Estimated Completion Date SIG Comments Vitamin oral Bonjesta 20-20 mg oral tablet,IR,delayed rel,biphasic 04/15/2018 08/13/2018 take 1 tablet by oral route 2 times per day in the morning and at bedtime for 60 days cetirizine 10 mg oral tablet 07/13/2018 11/10/2018 [...] per day as needed for 30 days Metrogel Vaginal 0.75 % vaginal gel [...] 08/03/2018 12:00 AM GLUCOSE TOLERANCE TEST (GTT) Returned 08/03/2018 12:00 AM COMPLETE CBC W/AUTO DIFF WBC Returned 08/03/2018 12:00 AM RH IG FULL-DOSE IM Returned 08/03/2018 12:00 AM Type and screen Returned 08/03/2018 12:00 AM ASSAY OF FERRITIN Returned 08/03/2018 12:00 AM TDAP VACCINE 7 YRS/> [...] Barbiturates NEGATIVE Oxycodone NEGATIVE Propoxyphene (PPX) NEGATIVE History Of Immunizations Name Date Admin Mfg Name Mfg Code Trade Name Lot# Route Inj Vis Given Vis Pub CVX HepA 06/22/2018 [employer] SKB HAVRIX-ADULT [id number] Intramuscular Right Arm 06/22/2018 03/03/2018 52 Tdap 08/03/2018 [employer] SKB BOOSTRIX [id number] Intramuscular Right Deltoid 08/03/2018 [...] Policy Number Policy Group Number Start Date [id number] N/A History of Encounters Visit Date Visit Type Provider 08/03/2018 Office visit Moise Hernadez MD 07/13/2018 Office visit Ashley Cummins APRN 06/22/2018 Nurse visit Ashley Cummins APRN 06/22/2018 Office visit Moise Hernadez MD 05/25/2018 Office visit Moise Hernadez MD 04/27/2018 Office visit Moise Hernadez MD 04/15/2018 Office visit Bushra Bryant ENDOSCOPIC TECHNICIAN 12/16/2017 Hospital Yannick Painting MD 10/10/2017 Office visit Bushra Bryant ENDOSCOPIC TECHNICIAN 10/06/2017 Office visit Bushra Bryant ENDOSCOPIC TECHNICIAN 07/30/2017 Office visit Ulices Winter ENDOSCOPIC TECHNICIAN 07/18/[address] Dora Khan MD 03/30/2017 Surgery Parker Rutherford MD 03/29/2017 Office visit Roman Dubois PA-C 12/18/2016 Office visit Ulices Jonesran ENDOSCOPIC TECHNICIAN 10/24/2016 Hospital Yannick Painting MD 07/30/2016 Office visit Ulices Jonesran ENDOSCOPIC TECHNICIAN 11/03/2015 Office visit Ulices Winter ENDOSCOPIC TECHNICIAN 10/04/2015 Office visit Ulices Winter ENDOSCOPIC TECHNICIAN 09/07/2015 Office visit Ulices Winter ENDOSCOPIC TECHNICIAN 07/27/2015 [facility] Mike Sheffield DO 07/24/2015 Office visit Ulices Winter ENDOSCOPIC TECHNICIAN 07/11/2015 Office visit Mike Sheffield DO 06/29/2015 Office visit Ulices Winter ENDOSCOPIC TECHNICIAN 04/28/2015 Office visit Ulices Winter ENDOSCOPIC TECHNICIAN 04/04/2015 Office visit Ulices Winter ENDOSCOPIC TECHNICIAN 03/07/2015 Office visit Ulices Winter ENDOSCOPIC TECHNICIAN 02/08/2015 Office visit Ulices Winter ENDOSCOPIC TECHNICIAN 01/25/2015 Office visit Ulices Winter ENDOSCOPIC TECHNICIAN 01/09/2015 Office visit Ulices Winter ENDOSCOPIC TECHNICIAN 12/02/2014 Office visit Ulices Winter ENDOSCOPIC TECHNICIAN 11/09/2014 Office visit Ulices Winter ENDOSCOPIC TECHNICIAN 10/14/2014 Office visit Ulices Winter ENDOSCOPIC TECHNICIAN 10/05/2014 Office visit Ulices Winter ENDOSCOPIC TECHNICIAN 08/29/2014 Office visit Ulices Winter ENDOSCOPIC TECHNICIAN 08/05/2014 Office visit Ulices Winter ENDOSCOPIC TECHNICIAN 06/07/2014 Office visit Ulices Winter ENDOSCOPIC TECHNICIAN 05/06/2014 Office visit Ulices Winter ENDOSCOPIC TECHNICIAN 04/12/2014 Office visit Ulices Jonesran ENDOSCOPIC TECHNICIAN 09/21/2011 [facility] Rama Watkins MD
--- OUTSIDE RECORDS SUMMARY | 2018-09-11 19:26 | XMS REPORT ---
Author Author Moise Hernadez [facility] Address [address] [place], [place] [id number] Care Team Providers Care Help Desk Specialist Name Role Phone Moise Hernadez PCP Ulices Winter PreferredProvider Allergies and Adverse Reactions Name Reaction Notes Ceftin fever Latex burning Plan of Treatment Planned Activity Comments Planned Date Planned Time Plan/Goal Hx of pre-term delivery x2, Hep C carrier, child with spina bifida, meth abuse and late care 05/18/2018 10:45 AM Hepatitis C GLUCOSE 50 gm 08/03/2018 12:00 AM CBC With Auto Differential 08/03/2018 12:00 AM Rhogam 08/03/2018 12:00 AM FERRITIN 08/03/2018 12:00 AM RPR W/REFLEX TO TP 08/03/2018 12:00 AM Boostrix vaccine 08/03/2018 12:00 AM Medications Active Name Start [...] 12:00 AM Consult/Referral Reviewed 08/03/2018 12:00 AM IMMUNIZATION ADMIN Reviewed [...] Of Immunizations Name Date Admin Mfg Name Mf Code Trade Name Lot# Route Inj Vis Given Vis Pub CVX HepA 06/22/2018 [employer] HAVRIX-ADULT [id number] Intramuscular Right Arm 06/22/2018 03/03/2018 52 History of Past Illness Name Date of [...] Policy Number Policy Group Number Start Date [id number] N/A History of Encounters Visit Date Visit Type Provider 08/03/2018 Office visit Moise Hernadez MD 07/13/2018 Office visit Ashley Cummins BLASTING CONTRACT MAN 06/22/2018 Nurse visit Ashley Cummins BLASTING CONTRACT MAN 06/22/2018 Office visit Moise Hernadez MD 05/25/2018 Office visit Moise Hernadez MD 04/27/2018 Office visit Moise Hernadez MD 04/15/2018 Office visit Bushra Bryant BLASTING CONTRACT MAN 12/16/2017 [facility] Yannick Painting MD 10/10/2017 Office visit Bushra Bryant BLASTING CONTRACT MAN 10/06/2017 Office visit Bushra Bryant BLASTING CONTRACT MAN 07/30/2017 Office visit Ulices Winter BLASTING CONTRACT MAN 07/18/[address] Dora Khan MD 03/30/2017 Surgery Parker Rutherford MD 03/29/2017 Office visit Roman Dubois PA-C 12/18/2016 Office visit Ulices Winter BLASTING CONTRACT MAN 10/24/2016 [facility] Yannick Painting MD 07/30/2016 Office visit Ulices Winter BLASTING CONTRACT MAN 11/03/2015 Office visit Ulices Winter BLASTING CONTRACT MAN 10/04/2015 Office visit Ulices Winter BLASTING CONTRACT MAN 09/07/2015 Office visit Ulices Jonesran BLASTING CONTRACT MAN 07/27/2015 [facility] Mike Miouman DO 07/24/2015 Office visit Ulices Winter BLASTING CONTRACT MAN 07/11/2015 Office visit Mike Bouman DO 06/29/2015 Office visit Ulices Winter BLASTING CONTRACT MAN 04/28/2015 Office visit Ulices Winter BLASTING CONTRACT MAN 04/04/2015 Office visit Ulices Winter BLASTING CONTRACT MAN 03/07/2015 Office visit Ulices Winter BLASTING CONTRACT MAN 02/08/2015 Office visit Ulices Winter BLASTING CONTRACT MAN 01/25/2015 Office visit Ulices Winter BLASTING CONTRACT MAN 01/09/2015 Office visit Ulices Winter BLASTING CONTRACT MAN 12/02/2014 Office visit Ulices Winter BLASTING CONTRACT MAN 11/09/2014 Office visit Ulices Winter BLASTING CONTRACT MAN 10/14/2014 Office visit Ulices Winter BLASTING CONTRACT MAN 10/05/2014 Office visit Ulices Winter BLASTING CONTRACT MAN 08/29/2014 Office visit Ulices Winter BLASTING CONTRACT MAN 08/05/2014 Office visit Ulices Winter BLASTING CONTRACT MAN 06/07/2014 Office visit Ulices Winter BLASTING CONTRACT MAN 05/06/2014 Office visit Ulices Winter BLASTING CONTRACT MAN 04/12/2014 Office visit Ulices Winter BLASTING CONTRACT MAN 09/21/2011 [facility] Rama Watkins MD
--- OUTSIDE RECORDS SUMMARY | 2018-09-11 19:27 | XMS REPORT ---
Author Author Moise Hernadez [facility] Address [address] [place], [place] [address] Care Team Providers Care Gear Finisher Name Role Phone Moise Hernadez PCP Ulices [...] IM Reviewed 06/24/2018 12:00 AM Consult/Referral Reviewed 08/29/2014 12:00 AM SPECIMEN HANDLING OFFICE-LAB [...] Vis Given Vis Pub CVX HepA 06/22/2018 [facility] HAVRIX-ADULT [id number] Intramuscular Right Arm 06/22/2018 03/03/2018 [...] in third trimester Aug 03 2018 1:43PM Payers Insurance Name Company Name Plan Name Plan Number Policy Number Policy Group Number Start Date [facility] [id number] N/A History of Encounters Visit Date Visit Type Provider 08/03/2018 Office visit Moise Hernadez MD 07/13/2018 Office visit Ashley Cummins PATHOLOGY TRANSCRIPTIONIST 06/22/2018 Nurse visit Ashley Cummins PATHOLOGY TRANSCRIPTIONIST 06/22/2018 Office visit Moise Hernadez MD 05/25/2018 Office visit Moise Hernadez MD 04/27/2018 Office visit Moise Hernadez MD 04/15/2018 Office visit Bushra Bryant PATHOLOGY TRANSCRIPTIONIST 12/16/2017 Hospital Yannick Painting MD 10/10/2017 Office visit Bushra Bryant PATHOLOGY TRANSCRIPTIONIST 10/06/2017 Office visit Bushra Bryant PATHOLOGY TRANSCRIPTIONIST 07/30/2017 Office visit Ulices Winter PATHOLOGY TRANSCRIPTIONIST 07/18/[address] Dora Khan MD 03/30/2017 Surgery Parker Rutherford MD 03/29/2017 Office visit Roman Dubois PA-C 12/18/2016 Office visit Ulices Winter PATHOLOGY TRANSCRIPTIONIST 10/24/2016 Hospital Yannick Painting MD 07/30/2016 Office visit Ulices Winter PATHOLOGY TRANSCRIPTIONIST 11/03/2015 Office visit Ulices Winter PATHOLOGY TRANSCRIPTIONIST 10/04/2015 Office visit Ulices Winter PATHOLOGY TRANSCRIPTIONIST 09/07/2015 Office visit Ulices Winter PATHOLOGY TRANSCRIPTIONIST 07/27/2015 Hospital Mike Sheffield DO 07/24/2015 Office visit Ulices Winter PATHOLOGY TRANSCRIPTIONIST 07/11/2015 Office visit Mike Sheffield DO 06/29/2015 Office visit Ulices Winter PATHOLOGY TRANSCRIPTIONIST 04/28/2015 Office visit Ulices Winter PATHOLOGY TRANSCRIPTIONIST 04/04/2015 Office visit Ulices Winter PATHOLOGY TRANSCRIPTIONIST 03/07/2015 Office visit Ulices Winter PATHOLOGY TRANSCRIPTIONIST 02/08/2015 Office visit Ulices Winter PATHOLOGY TRANSCRIPTIONIST 01/25/2015 Office visit Ulices Winter PATHOLOGY TRANSCRIPTIONIST 01/09/2015 Office visit Ulices Winter PATHOLOGY TRANSCRIPTIONIST 12/02/2014 Office visit Ulices Winter PATHOLOGY TRANSCRIPTIONIST 11/09/2014 Office visit Ulices Winter PATHOLOGY TRANSCRIPTIONIST 10/14/2014 Office visit Ulices Winter PATHOLOGY TRANSCRIPTIONIST 10/05/2014 Office visit Ulices Winter PATHOLOGY TRANSCRIPTIONIST 08/29/2014 Office visit Ulices Winter PATHOLOGY TRANSCRIPTIONIST 08/05/2014 Office visit Ulices Winter PATHOLOGY TRANSCRIPTIONIST 06/07/2014 Office visit Ulices Winter PATHOLOGY TRANSCRIPTIONIST 05/06/2014 Office visit Ulices Winter PATHOLOGY TRANSCRIPTIONIST 04/12/2014 Office visit Ulices Winter PATHOLOGY TRANSCRIPTIONIST 09/21/2011 [facility] Rama Watkins MD
--- OUTSIDE RECORDS SUMMARY | 2018-09-11 19:28 | XMS REPORT ---
Author Author Moise Hernadez [facility] Address [address] [place], [place] [id number] Care Team Providers Care Shop Cooper Name Role Phone Moise Hernadez PCP Ulices [...] Vis Given Vis Pub CVX HepA 06/22/2018 [employer] [facility] HAVRIX-ADULT [id number] Intramuscular Right Arm 06/22/2018 [...] Policy Number Policy Group Number Start Date [facility] [id number] N/A History of Encounters Visit Date Visit Type Provider 08/03/2018 Office visit Moise Hernadez MD 07/13/2018 Office visit Ashley Cummins PIZZA CHEF 06/22/2018 Nurse visit Ashley Cummins PIZZA CHEF 06/22/2018 Office visit Moise Hernadez MD 05/25/2018 Office visit Moise Hernadez MD 04/27/2018 Office visit Moise Hernadez MD 04/15/2018 Office visit Bushra Bryant PIZZA CHEF 12/16/2017 Hospital Yannick Painting MD 10/10/2017 Office visit Bushra Bryant PIZZA CHEF 10/06/2017 Office visit Bushra Bryant PIZZA CHEF 07/30/2017 Office visit Ulices Winter PIZZA CHEF 07/18/[address] Dora Khan MD 03/30/2017 Surgery Parker Rutherford MD 03/29/2017 Office visit Roman Dubois PA-C 12/18/2016 Office visit Ulices Winter PIZZA CHEF 10/24/2016 Hospital Yannick Painting MD 07/30/2016 Office visit Ulices Winter PIZZA CHEF 11/03/2015 Office visit Ulices Winter PIZZA CHEF 10/04/2015 Office visit Ulices Winter PIZZA CHEF 09/07/2015 Office visit Ulices Winter PIZZA CHEF 07/27/2015 Hospital Mike Sheffield DO 07/24/2015 Office visit Ulices Winter PIZZA CHEF 07/11/2015 Office visit Mike Sheffield DO 06/29/2015 Office visit Ulices Winter PIZZA CHEF 04/28/2015 Office visit Ulices Winter PIZZA CHEF 04/04/2015 Office visit Ulices Winter PIZZA CHEF 03/07/2015 Office visit Ulices Winter PIZZA CHEF 02/08/2015 Office visit Ulices Winter PIZZA CHEF 01/25/2015 Office visit Ulices Winter PIZZA CHEF 01/09/2015 Office visit Ulices Winter PIZZA CHEF 12/02/2014 Office visit Ulices Winter PIZZA CHEF 11/09/2014 Office visit Ulices Winter PIZZA CHEF 10/14/2014 Office visit Ulices Winter PIZZA CHEF 10/05/2014 Office visit Ulices Winter PIZZA CHEF 08/29/2014 Office visit Ulices Winter PIZZA CHEF 08/05/2014 Office visit Ulices Winter PIZZA CHEF 06/07/2014 Office visit Ulices Winter PIZZA CHEF 05/06/2014 Office visit Ulices Winter PIZZA CHEF 04/12/2014 Office visit Ulices Winter PIZZA CHEF 09/21/2011 [facility] Rama Watkins MD
--- OUTSIDE RECORDS SUMMARY | 2018-09-11 19:29 | XMS REPORT ---
Author Author Ashley Cummins [facility] Address [address] [place], [place] [address] Care Team Providers Care Silk Weaver Name Role Phone Ashley Cummins PCP Ulices Winter PreferredProvider Allergies and Adverse [...] morning and at bedtime for 60 days Augmentin 875-125 mg oral tablet 07/13/2018 07/20/2018 take 1 tablet by oral route every 12 hours for 7 days cetirizine 10 mg oral tablet 07/13/2018 [...] once daily at bedtime for 5 days Discontinued Name Start Date Discontinued Date [...] thoracic spine Active Depression Active 05/16/2014 Abdominal Pain Active 07/13/2015 Hepatitis C Active Abscess, vulva [...] Of Immunizations Name Date Admin Mfg Name [facility] Code Trade Name Lot# Route Inj Vis Given Vis Pub CVX HepA 06/22/2018 [employer] SKB HAVRIX-ADULT [id number] Intramuscular Right Arm 06/22/2018 03/03/2018 52 History of Past Illness Name Date of Onset Comments Anxiety Scoliosis of thoracic spine Depression 05/16/2014 Hepatitis C Abdominal Pain 07/13/2015 Anemia Asthma Abscess, vulva 10/06/2017 MRSA [...] non-recurrent frontal sinusitis Jul 13 2018 1:19PM Payers Insurance Name Company Name Plan Name Plan Number Policy Number Policy Group Number Start Date [id number] N/A History of Encounters Visit Date Visit Type Provider 07/13/2018 Office visit Ashley Cummins MECHANICAL TECHNICIAN 06/22/2018 Nurse visit Ashley Cummins MECHANICAL TECHNICIAN 06/22/2018 Office visit Moise Hernadez MD 05/25/2018 Office visit Moise Hernadez MD 04/27/2018 Office visit Moise Hernadez MD 04/15/2018 Office visit Bushra Bryant MECHANICAL TECHNICIAN 12/16/2017 [facility] Yannick Painting MD 10/10/2017 Office visit Bushra Bryant MECHANICAL TECHNICIAN 10/06/2017 Office visit Bushra Bryant MECHANICAL TECHNICIAN 07/30/2017 Office visit Ulices Winter APRN 07/18/2017 [...] Sheffield DO 06/29/2015 Office visit Ulices Winter MECHANICAL TECHNICIAN 04/28/2015 Office visit Ulices Winter MECHANICAL TECHNICIAN 04/04/2015 Office visit Ulices Winter MECHANICAL TECHNICIAN 03/07/2015 Office visit Ulices Winter MECHANICAL TECHNICIAN 02/08/2015 Office visit Ulices Winter MECHANICAL TECHNICIAN 01/25/2015 Office visit Ulices Winter MECHANICAL TECHNICIAN 01/09/2015 Office visit Ulices Winter MECHANICAL TECHNICIAN 12/02/2014 Office visit Ulices Winter MECHANICAL TECHNICIAN 11/09/2014 Office visit Ulices Winter MECHANICAL TECHNICIAN 10/14/2014 Office visit Ulices Winter MECHANICAL TECHNICIAN 10/05/2014 Office visit Ulices Winter MECHANICAL TECHNICIAN 08/29/2014 Office visit Ulices Winter MECHANICAL TECHNICIAN 08/05/2014 Office visit Ulices Winter MECHANICAL TECHNICIAN 06/07/2014 Office visit Ulices Winter MECHANICAL TECHNICIAN 05/06/2014 Office visit Ulices Winter MECHANICAL TECHNICIAN 04/12/2014 Office visit Ulices Winter MECHANICAL TECHNICIAN 09/21/2011 [facility] Rama Watkins MD
--- OUTSIDE RECORDS SUMMARY | 2018-09-11 19:29 | XMS REPORT ---
Author Author Moise Hernadez [facility] Address [address] [place], [place] [address] Care Team Providers Care Supervisor Maintenance And Custodians Name Role Phone Moise Hernadez PCP Ulices [...] Vis Given Vis Pub CVX HepA 06/22/2018 [employer] [facility] HAVRIX-ADULT [id number] Intramuscular Right Arm 06/22/2018 03/03/2018 [...] Policy Number Policy Group Number Start Date [facility] [id number] N/A History of Encounters Visit Date Visit Type Provider 08/03/2018 Office visit Moise Hernadez MD 07/13/2018 Office visit Ashley Cummins TELECOMMUNICATIONS FIELD ENGINEER 06/22/2018 Nurse visit Ashley Cummins TELECOMMUNICATIONS FIELD ENGINEER 06/22/2018 Office visit Moise Hernadez MD 05/25/2018 Office visit Moise Hernadez MD 04/27/2018 Office visit Moise Hernadez MD 04/15/2018 Office visit Bushra Bryant TELECOMMUNICATIONS FIELD ENGINEER 12/16/2017 Hospital Yannick Painting MD 10/10/2017 Office visit Bushra Bryant TELECOMMUNICATIONS FIELD ENGINEER 10/06/2017 Office visit Bushra Bryant TELECOMMUNICATIONS FIELD ENGINEER 07/30/2017 Office visit Ulices Winter TELECOMMUNICATIONS FIELD ENGINEER 07/18/[address] Dora Khan MD 03/30/2017 Surgery Parker Rutherford MD 03/29/2017 Office visit Roman Dubois PA-C 12/18/2016 Office visit Ulices Winter TELECOMMUNICATIONS FIELD ENGINEER 10/24/2016 Hospital Yannick Painting MD 07/30/2016 Office visit Ulices Winter TELECOMMUNICATIONS FIELD ENGINEER 11/03/2015 Office visit Ulices Winter TELECOMMUNICATIONS FIELD ENGINEER 10/04/2015 Office visit Ulices Winter TELECOMMUNICATIONS FIELD ENGINEER 09/07/2015 Office visit Ulices Winter TELECOMMUNICATIONS FIELD ENGINEER 07/27/2015 Hospital Mike Sheffield DO 07/24/2015 Office visit Ulices Winter TELECOMMUNICATIONS FIELD ENGINEER 07/11/2015 Office visit Mike Sheffield DO 06/29/2015 Office visit Ulices Winter TELECOMMUNICATIONS FIELD ENGINEER 04/28/2015 Office visit Ulices Winter TELECOMMUNICATIONS FIELD ENGINEER 04/04/2015 Office visit Ulices Winter TELECOMMUNICATIONS FIELD ENGINEER 03/07/2015 Office visit Ulices Winter TELECOMMUNICATIONS FIELD ENGINEER 02/08/2015 Office visit Ulices Winter TELECOMMUNICATIONS FIELD ENGINEER 01/25/2015 Office visit Ulices Winter TELECOMMUNICATIONS FIELD ENGINEER 01/09/2015 Office visit Ulices Winter TELECOMMUNICATIONS FIELD ENGINEER 12/02/2014 Office visit Ulices Winter TELECOMMUNICATIONS FIELD ENGINEER 11/09/2014 Office visit Ulices Winter TELECOMMUNICATIONS FIELD ENGINEER 10/14/2014 Office visit Ulices Winter TELECOMMUNICATIONS FIELD ENGINEER 10/05/2014 Office visit Ulices Winter TELECOMMUNICATIONS FIELD ENGINEER 08/29/2014 Office visit Ulices Winter TELECOMMUNICATIONS FIELD ENGINEER 08/05/2014 Office visit Ulices Winter TELECOMMUNICATIONS FIELD ENGINEER 06/07/2014 Office visit Ulices Winter TELECOMMUNICATIONS FIELD ENGINEER 05/06/2014 Office visit Ulices Winter TELECOMMUNICATIONS FIELD ENGINEER 04/12/2014 Office visit Ulices Winter TELECOMMUNICATIONS FIELD ENGINEER 09/21/2011 [facility] Rama Watkins MD
--- OUTSIDE RECORDS SUMMARY | 2018-09-11 19:30 | XMS REPORT ---
Author Author Ashley Cummins [facility] Address [address] [place], [place] [address] Care Team Providers Care Cleaners Name Role Phone sAhley Cummins PCP Ulices Winter PreferredProvider Allergies and [...] morning and at bedtime for 60 days Name Start Date Expiration Date SIG [...] HC BMI BSA BMI Percentile O2 Sat(%) 04/15/2018 2:50:00 PM 134 mmHg 67 mmHg 80 bpm 98.1 F 162 lbs 64 in 27.807 kg/m 1.8216 m 10/10/2017 10:42:00 AM 119 mmHg 68 mmHg 149 bpm 97.5 F 155 lbs 64 in 26.61 kg/m2 1.78 m2 10/06/2017 1:52:00 PM 140 mmHg 80 mmHg 99 bpm 98.2 F 148 lbs 65 in 24.6282 kg/m 1.7546 m 07/30/2017 3:51:00 PM 130 mmHg 80 mmHg 112 bpm 16 rpm 98.1 F 150 lbs 65 in 24.96 kg/m2 1.77 m2 99 % 07/18/2017 10:22:00 AM 135 mmHg 68 mmHg 92 bpm 99 F 162 lbs 65 in 26.9579 kg/m 1.8358 m 03/29/2017 11:14:00 AM 120 mmHg 78 mmHg 90 bpm 20 rpm 98.5 F 167 lbs 65 in 27.79 kg/m2 1.86 m2 100 % 12/18/2016 10:28:00 AM 110 mmHg 80 mmHg 106 bpm 16 rpm 96.7 F 148 lbs 65 in 24.6282 kg/m 1.7546 m 100 % 07/30/2016 9:18:00 AM 110 mmHg [...] 06/22/2018 12:00 AM Rapid urine drug screen Returned 06/22/2018 12:00 AM HEP A VACCINE ADULT [...] 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, 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 History Of Immunizations Name Date Admin Mfg Name Mf Code Trade Name Lot# Route Inj Vis Given Vis Pub CVX HepA 06/22/2018 [employer] [facility] HAVRIX-ADULT [id number] Intramuscular Right Arm 06/22/2018 03/03/2018 [...] 9:47AM HEP A Jun 22 2018 10:12AM Payers Insurance Name Company Name Plan Name Plan Number Policy Number Policy Group Number Start Date Sherry Powell [id number] N/A History of Encounters Visit Date Visit Type Provider 06/22/2018 Nurse visit Ashley Cummins INSURANCE DEFENSE ATTORNEY 06/22/2018 Office visit Moise Hernadez MD 05/25/2018 Office visit Moise Hernadez MD 04/27/2018 Office visit Moise Hernadez MD 04/15/2018 Office visit Bushra Bryant INSURANCE DEFENSE ATTORNEY 12/16/2017 Hospital Yannick Painting MD 10/10/2017 Office visit Bushra Bryant INSURANCE DEFENSE ATTORNEY 10/06/2017 Office visit Bushra Bryant INSURANCE DEFENSE ATTORNEY 07/30/2017 Office visit Ulices Winter APRN 07/18/[address] Dora Khan MD 03/30/2017 Surgery Parker Rutherford MD 03/29/2017 Office visit Roman Dubois PA-C 12/18/2016 Office visit Ulices Winter APRN 10/24/2016 Hospital Yanncik Painting MD 07/30/2016 Office visit Ulices Winter APRN 11/03/2015 Office visit Ulices Winter INSURANCE DEFENSE ATTORNEY 10/04/2015 Office visit Ulices Winter INSURANCE DEFENSE ATTORNEY 09/07/2015 Office visit Ulices Winter INSURANCE DEFENSE ATTORNEY 07/27/2015 Hospital Mike Sheffield DO 07/24/2015 Office visit Ulices Winter APRN 07/11/2015 Office visit Mike Sheffield DO 06/29/2015 Office visit Ulices Winter INSURANCE DEFENSE ATTORNEY 04/28/2015 Office visit Ulices Winter APRN 04/04/2015 Office visit Ulices Winter APRN 03/07/2015 Office visit Ulices Winter APRN 02/08/2015 Office visit Ulices Winter APRN 01/25/2015 Office visit Ulices Winter APRN 01/09/2015 Office visit Ulices Winter APRN 12/02/2014 Office visit Ulices Winter APRN 11/09/2014 Office visit Ulices Winter APRN 10/14/2014 Office visit Ulices Winter APRN 10/05/2014 Office visit Ulices Winter APRN 08/29/2014 Office visit Ulices Winter APRN 08/05/2014 Office visit Ulices Wintre APRN 06/07/2014 Office visit Ulices Winter APRN 05/06/2014 Office visit Ulices Winter APRN 04/12/2014 Office visit Ulices Winter INSURANCE DEFENSE ATTORNEY 09/21/2011 [facility] Rama Watkins MD
--- OUTSIDE RECORDS SUMMARY | 2018-09-11 19:31 | XMS REPORT ---
Author Author Ashley Cummins [facility] Address [address] [place], [place] [id number] Care Team Providers Care Case Therapist Name Role Phone Ashley Cummins PCP Ulices [...] Vis Given Vis Pub CVX HepA 06/22/2018 [employer] [facility] HAVRIX-ADULT [id number] Intramuscular Right Arm 06/22/2018 [...] Policy Group Number Start Date Sherry Powell [id number] N/A History of Encounters Visit Date Visit Type Provider 06/22/2018 Nurse visit Ashley Cummins CATTLE KNOCKER 06/22/2018 Office visit Moise Hernadez MD 05/25/2018 Office visit Moise Hernadez MD 04/27/2018 Office visit Moise Hernadez MD 04/15/2018 Office visit Bushra Bryant CATTLE KNOCKER 12/16/2017 Hospital Yannick Painting MD 10/10/2017 Office visit Bushra Bryant CATTLE KNOCKER 10/06/2017 Office visit Bushra Bryant CATTLE KNOCKER 07/30/2017 Office visit Ulices Winter APRN 07/18/[address] Dora Khan MD 03/30/2017 Surgery Parker Rutherford MD 03/29/2017 Office visit Roman Dubois PA-C 12/18/2016 Office visit Ulices Winter APRN 10/24/2016 Hospital Yannick Painting MD 07/30/2016 Office visit Ulices Winter APRN 11/03/2015 Office visit Ulices Winter CATTLE KNOCKER 10/04/2015 Office visit Ulices Winter CATTLE KNOCKER 09/07/2015 Office visit Ulices Winter CATTLE KNOCKER 07/27/2015 Hospital Mike Sheffield DO 07/24/2015 Office visit Ulices Winter APRN 07/11/2015 Office visit Mike Sheffield DO 06/29/2015 Office visit Ulices Winter CATTLE KNOCKER 04/28/2015 Office visit Ulices Winter APRN 04/04/2015 [...] Ulices Winter APRN 08/05/2014 Office visit Ulices Winter APRN 06/07/2014 Office visit Ulices Winter APRN 05/06/2014 Office visit Ulices Winter APRN 04/12/2014 Office visit Ulices Winter CATTLE KNOCKER 09/21/2011 [facility] Rama Watkins MD
--- OUTSIDE RECORDS SUMMARY | 2018-09-11 19:32 | XMS REPORT ---
Author Author Ashley Cummins [facility] Address [address] [place], [place] [address] Care Team Providers Care Senior Sql Developer Name Role Phone Ashley Cummins PCP Ulices Winter PreferredProvider Allergies and Adverse Reactions Name Reaction Notes Ceftin fever Latex burning Plan of Treatment Planned Activity Comments Planned Date Planned Time Plan/Goal Hx of pre-term delivery x2, Hep C carrier, child with spina bifida, meth abuse and late care 05/18/2018 10:45 AM Rapid urine drug screen 06/22/2018 12:00 AM Medications Active Name Start Date [...] 12:00 AM Consult/Referral Reviewed 06/22/2018 12:00 AM HEP A VACCINE ADULT IM Reviewed 08/29/2014 12:00 AM SPECIMEN HANDLING OFFICE-LAB [...] Vis Given Vis Pub CVX HepA 06/22/2018 [employer] [facility] HAVRIX-ADULT [id number] Intramuscular Right Arm 06/22/2018 [...] Policy Group Number Start Date Sherry Powell [id number] N/A History of Encounters Visit Date Visit Type Provider 06/22/2018 Nurse visit Ashley MeierWendy Cummins DOCUMENT PREPARATION SPECIALIST 06/22/2018 Office visit Moise Hernadez MD 05/25/2018 Office visit Moise Hernadez MD 04/27/2018 Office visit Moise Hernadez MD 04/15/2018 Office visit Bushra Bryant DOCUMENT PREPARATION SPECIALIST 12/16/2017 Hospital Yannick Painting MD 10/10/2017 Office visit Bushra Bryant DOCUMENT PREPARATION SPECIALIST 10/06/2017 Office visit Bushra Bryant DOCUMENT PREPARATION SPECIALIST 07/30/2017 Office visit Ulices Winter DOCUMENT PREPARATION SPECIALIST 07/18/[address] Dora Khan MD 03/30/2017 Surgery Parker Rutherford MD 03/29/2017 Office visit Roman Dubois PA-C 12/18/2016 Office visit Ulices Winter DOCUMENT PREPARATION SPECIALIST 10/24/2016 [facility] Yannick Painting MD 07/30/2016 Office visit Ulices Winter DOCUMENT PREPARATION SPECIALIST 11/03/2015 Office visit Ulices Winter DOCUMENT PREPARATION SPECIALIST 10/04/2015 Office visit Ulices Winter DOCUMENT PREPARATION SPECIALIST 09/07/2015 Office visit Ulices Winter DOCUMENT PREPARATION SPECIALIST 07/27/2015 Hospital Mike Sheffield DO 07/24/2015 Office visit Ulices Winter DOCUMENT PREPARATION SPECIALIST 07/11/2015 Office visit Mike Sheffield DO 06/29/2015 Office visit Ulices Winter DOCUMENT PREPARATION SPECIALIST 04/28/2015 Office visit Ulices Winter DOCUMENT PREPARATION SPECIALIST 04/04/2015 Office visit Ulices Winter DOCUMENT PREPARATION SPECIALIST 03/07/2015 Office visit Ulices Winter DOCUMENT PREPARATION SPECIALIST 02/08/2015 Office visit Ulices Winter DOCUMENT PREPARATION SPECIALIST 01/25/2015 Office visit Ulices Winter DOCUMENT PREPARATION SPECIALIST 01/09/2015 Office visit Ulices Winter DOCUMENT PREPARATION SPECIALIST 12/02/2014 Office visit Ulices Winter DOCUMENT PREPARATION SPECIALIST 11/09/2014 Office visit Ulices Winter DOCUMENT PREPARATION SPECIALIST 10/14/2014 Office visit Ulices Winter DOCUMENT PREPARATION SPECIALIST 10/05/2014 Office visit Ulices Winter DOCUMENT PREPARATION SPECIALIST 08/29/2014 Office visit Ulices Winter DOCUMENT PREPARATION SPECIALIST 08/05/2014 Office visit Ulices Winter DOCUMENT PREPARATION SPECIALIST 06/07/2014 Office visit Ulices Winter DOCUMENT PREPARATION SPECIALIST 05/06/2014 Office visit Ulices Winter DOCUMENT PREPARATION SPECIALIST 04/12/2014 Office visit Ulices Winter DOCUMENT PREPARATION SPECIALIST 09/21/2011 Hospital Rama Watkins MD
--- OUTSIDE RECORDS SUMMARY | 2018-09-11 19:33 | XMS REPORT ---
Author Author Ashley Cummins [facility] Address [address] [place], [place] [address] Care Team Providers Care Steel Sash Erector Name Role Phone Ashley Cummins PCP Ulices [...] Vis Given Vis Pub CVX HepA 06/22/2018 [employer] [facility] HAVRIX-ADULT [id number] Intramuscular Right Arm 06/22/2018 [...] Policy Group Number Start Date Sherry Powell [id number] N/A History of Encounters Visit Date Visit Type Provider 06/22/2018 Nurse visit Ashley MeierWendy Cummins 2ND GRADE TEACHER 06/22/2018 Office visit Moise Hernadez MD 05/25/2018 Office visit Moise Hernadez MD 04/27/2018 Office visit Moise Hernadez MD 04/15/2018 Office visit Bushra Bryant 2ND GRADE TEACHER 12/16/2017 Hospital Yannick Painting MD 10/10/2017 Office visit Bushra Bryant 2ND GRADE TEACHER 10/06/2017 Office visit Bushra Bryant 2ND GRADE TEACHER 07/30/2017 Office visit Ulices Winter 2ND GRADE TEACHER 07/18/[address] Dora Khan MD 03/30/2017 Surgery Parker Rutherford MD 03/29/2017 Office visit Roman Dubois PA-C 12/18/2016 Office visit Ulices Winter 2ND GRADE TEACHER 10/24/2016 [facility] Yannick Painting MD 07/30/2016 Office visit Ulices Winter 2ND GRADE TEACHER 11/03/2015 Office visit Ulices Winter 2ND GRADE TEACHER 10/04/2015 Office visit Ulices Winter 2ND GRADE TEACHER 09/07/2015 Office visit Ulices Winter 2ND GRADE TEACHER 07/27/2015 Hospital Mike Sheffield DO 07/24/2015 Office visit Ulices Winter 2ND GRADE TEACHER 07/11/2015 Office visit Mike Sheffield DO 06/29/2015 Office visit Ulices Winter 2ND GRADE TEACHER 04/28/2015 Office visit Ulices Winter 2ND GRADE TEACHER 04/04/2015 Office visit Ulices Winter 2ND GRADE TEACHER 03/07/2015 Office visit Ulices Winter 2ND GRADE TEACHER 02/08/2015 Office visit Ulices Winter 2ND GRADE TEACHER 01/25/2015 Office visit Ulices Winter 2ND GRADE TEACHER 01/09/2015 Office visit Ulices Winter 2ND GRADE TEACHER 12/02/2014 Office visit Ulices Winter 2ND GRADE TEACHER 11/09/2014 Office visit Ulices Winter 2ND GRADE TEACHER 10/14/2014 Office visit Ulices Winter 2ND GRADE TEACHER 10/05/2014 Office visit Ulices Winter 2ND GRADE TEACHER 08/29/2014 Office visit Ulices Winter 2ND GRADE TEACHER 08/05/2014 Office visit Ulices Winter 2ND GRADE TEACHER 06/07/2014 Office visit Ulices Winter 2ND GRADE TEACHER 05/06/2014 Office visit Ulices Winter 2ND GRADE TEACHER 04/12/2014 Office visit Ulices Winter 2ND GRADE TEACHER 09/21/2011 Hospital Rama Watkins MD
--- OUTSIDE RECORDS SUMMARY | 2018-09-11 19:34 | XMS REPORT ---
Author Author Moise Hernadez [facility] Address [address] [place], [place] [address] Care Team Providers Care Refractory Bricklayer Name Role Phone Moise Hernadez PCP Ulices [...] times per day for 7 days Ambien mg oral tablet 03/20/2015 take 1 tablet [...] FETUS(S) Reviewed 04/28/2018 12:00 AM Consult/Referral Reviewed 08/29/2014 12:00 AM [...] IgG, 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 History Of Immunizations Not available. History of Past Illness Name Date of [...] Illicit drug use Jun 22 2018 9:47AM Payers Insurance Name Company Name Plan Name Plan Number Policy Number Policy Group Number Start Date Sherry Powell [id number] N/A History of Encounters Visit Date Visit Type Provider 06/22/2018 Office visit Moise Hernadez MD 05/25/2018 Office visit Moise Hernadez MD 04/27/2018 Office visit Moise Hernadez MD 04/15/2018 Office visit Bushra Bryant REGISTERED NURSE FETAL 12/16/2017 Hospital Yannick Painting MD 10/10/2017 Office visit Bushra Bryant REGISTERED NURSE FETAL 10/06/2017 Office visit Bushra Bryant REGISTERED NURSE FETAL 07/30/2017 Office visit Ulices Winter REGISTERED NURSE FETAL 07/18/[address] Dora Khan MD 03/30/2017 Surgery Parker Rutherford MD 03/29/2017 Office visit Roman Dubois PA-C 12/18/2016 Office visit Ulices Jonesran REGISTERED NURSE FETAL 10/24/2016 Hospital Yannick Painting MD 07/30/2016 Office visit Ulices Winter REGISTERED NURSE FETAL 11/03/2015 Office visit Ulices Winter REGISTERED NURSE FETAL 10/04/2015 Office visit Ulices Winter REGISTERED NURSE FETAL 09/07/2015 Office visit Ulices Winter REGISTERED NURSE FETAL 07/27/2015 [facility] Mike Sheffield DO 07/24/2015 Office visit Ulices Winter REGISTERED NURSE FETAL 07/11/2015 Office visit Mike Sheffield DO 06/29/2015 Office visit Ulices Winter REGISTERED NURSE FETAL 04/28/2015 Office visit Ulices Winter REGISTERED NURSE FETAL 04/04/2015 Office visit Ulicse Winter REGISTERED NURSE FETAL 03/07/2015 Office visit Ulices Winter REGISTERED NURSE FETAL 02/08/2015 Office visit Ulices Winter REGISTERED NURSE FETAL 01/25/2015 Office visit Ulices Winter REGISTERED NURSE FETAL 01/09/2015 Office visit Ulices Winter REGISTERED NURSE FETAL 12/02/2014 Office visit Ulices Winter REGISTERED NURSE FETAL 11/09/2014 Office visit Ulices Winter REGISTERED NURSE FETAL 10/14/2014 Office visit Ulices Winter REGISTERED NURSE FETAL 10/05/2014 Office visit Ulices Winter REGISTERED NURSE FETAL 08/29/2014 Office visit Ulices Winter REGISTERED NURSE FETAL 08/05/2014 Office visit Ulices Winter REGISTERED NURSE FETAL 06/07/2014 Office visit Ulices Winter REGISTERED NURSE FETAL 05/06/2014 Office visit Ulices Winter REGISTERED NURSE FETAL 04/12/2014 Office visit Ulices Winter REGISTERED NURSE FETAL 09/21/2011 Hospital Rama Watkins MD
--- OUTSIDE RECORDS SUMMARY | 2018-09-11 19:35 | XMS REPORT ---
Author Author Moise Hernadez [facility] Address [address] [place], [place] [id number] Care Team Providers Care Food Selector Name Role Phone Moise Hernadez PCP Ulices [...] Policy Group Number Start Date Sherry Powell [id number] N/A History of Encounters Visit Date Visit Type Provider 06/22/2018 Office visit Moise Hernadez MD 05/25/2018 Office visit Moise Hernadez MD 04/27/2018 Office visit Moise Hernadez MD 04/15/2018 Office visit Bushra Bryant ATHLETIC EQUIPMENT MANAGER 12/16/2017 Hospital Yannick Painting MD 10/10/2017 Office visit Bushra Bryant ATHLETIC EQUIPMENT MANAGER 10/06/2017 Office visit Bushra Bryant ATHLETIC EQUIPMENT MANAGER 07/30/2017 Office visit Ulices Winter ATHLETIC EQUIPMENT MANAGER 07/18/[address] Dora Khan MD 03/30/2017 Surgery Parker Rutherford MD 03/29/2017 Office visit Roman Dubois PA-C 12/18/2016 Office visit Ulices Jonesran ATHLETIC EQUIPMENT MANAGER 10/24/2016 Hospital Yannick Painting MD 07/30/2016 Office visit Ulices Winter ATHLETIC EQUIPMENT MANAGER 11/03/2015 Office visit Ulices Winter ATHLETIC EQUIPMENT MANAGER 10/04/2015 Office visit Ulices Winter ATHLETIC EQUIPMENT MANAGER 09/07/2015 Office visit Ulices Winter ATHLETIC EQUIPMENT MANAGER 07/27/2015 [facility] Mike Sheffield DO 07/24/2015 Office visit Ulices Winter ATHLETIC EQUIPMENT MANAGER 07/11/2015 Office visit Mike Sheffield DO 06/29/2015 Office visit Ulices Winter ATHLETIC EQUIPMENT MANAGER 04/28/2015 Office visit Ulices Winter ATHLETIC EQUIPMENT MANAGER 04/04/2015 Office visit Ulices Winter ATHLETIC EQUIPMENT MANAGER 03/07/2015 Office visit Ulices Winter ATHLETIC EQUIPMENT MANAGER 02/08/2015 Office visit Ulices Winter ATHLETIC EQUIPMENT MANAGER 01/25/2015 Office visit Ulices Wniter ATHLETIC EQUIPMENT MANAGER 01/09/2015 Office visit Ulices Winter ATHLETIC EQUIPMENT MANAGER 12/02/2014 Office visit Ulices Winter ATHLETIC EQUIPMENT MANAGER 11/09/2014 Office visit Ulices Winter ATHLETIC EQUIPMENT MANAGER 10/14/2014 Office visit Ulices Winter ATHLETIC EQUIPMENT MANAGER 10/05/2014 Office visit Ulices Winter ATHLETIC EQUIPMENT MANAGER 08/29/2014 Office visit Ulices Winter ATHLETIC EQUIPMENT MANAGER 08/05/2014 Office visit Ulices Winter ATHLETIC EQUIPMENT MANAGER 06/07/2014 Office visit Ulices Winter ATHLETIC EQUIPMENT MANAGER 05/06/2014 Office visit Ulices Winter ATHLETIC EQUIPMENT MANAGER 04/12/2014 Office visit Ulices Winter ATHLETIC EQUIPMENT MANAGER 09/21/2011 Hospital Rama Watkins MD
--- OUTSIDE RECORDS SUMMARY | 2018-09-11 19:36 | XMS REPORT ---
Author Author Moise Hernadez [facility] Address [address] [place], [place] [address] Care Team Providers Care Chaperon Name Role Phone Moise Hernadez PCP Ulices Winter PreferredProvider Allergies and Adverse Reactions Name Reaction Notes Ceftin fever Latex burning Plan of Treatment Planned Activity Comments Planned Date Planned Time Plan/Goal Hx of pre-term delivery x2, Hep C carrier, child with spina bifida, meth abuse and late care 05/18/2018 10:45 AM Medications Active Name Start Date Estimated [...] of delivery, currently Apr 28 2018 10:52AM Payers Insurance Name Company Name Plan Name Plan Number Policy Number Policy Group Number Start Date [facility] [id number] N/A History of Encounters Visit Date Visit Type Provider 06/22/2018 Office visit Moise Hernadez MD 05/25/2018 Office visit Moise Hernadez MD 04/27/2018 Office visit Moise Hernadez MD 04/15/2018 Office visit Bushra Bryant ARCHERY INSTRUCTOR 12/16/2017 [facility] Yannick Painting MD 10/10/2017 Office visit Bushra Bryant ARCHERY INSTRUCTOR 10/06/2017 Office visit Bushra Bryant ARCHERY INSTRUCTOR 07/30/2017 Office visit Ulices Winter ARCHERY INSTRUCTOR 07/18/[address] Dora Khan MD 03/30/2017 Surgery Parker Rutherford MD 03/29/2017 Office visit Roman Dubois PA-C 12/18/2016 Office visit Ulices Winter ARCHERY INSTRUCTOR 10/24/2016 Hospital Yannick Painting MD 07/30/2016 Office visit Ulices Winter ARCHERY INSTRUCTOR 11/03/2015 Office visit Ulices Winter ARCHERY INSTRUCTOR 10/04/2015 Office visit Ulices Jonesran ARCHERY INSTRUCTOR 09/07/2015 Office visit Ulices Jonesran ARCHERY INSTRUCTOR 07/27/2015 Hospital Mike Nettie DO 07/24/2015 Office visit Ulices Jonesran ARCHERY INSTRUCTOR 07/11/2015 Office visit Mike Bouman DO 06/29/2015 Office visit Ulices Jonesran ARCHERY INSTRUCTOR 04/28/2015 Office visit Ulices Winter ARCHERY INSTRUCTOR 04/04/2015 Office visit Ulices Jonesran ARCHERY INSTRUCTOR 03/07/2015 Office visit Ulices Winter ARCHERY INSTRUCTOR 02/08/2015 Office visit Ulices Winter ARCHERY INSTRUCTOR 01/25/2015 Office visit Ulices Jonesran ARCHERY INSTRUCTOR 01/09/2015 Office visit Ulices Winter ARCHERY INSTRUCTOR 12/02/2014 Office visit Ulices Jonesran ARCHERY INSTRUCTOR 11/09/2014 Office visit Ulices Winter ARCHERY INSTRUCTOR 10/14/2014 Office visit Ulices Winter ARCHERY INSTRUCTOR 10/05/2014 Office visit Ulices Jonesran ARCHERY INSTRUCTOR 08/29/2014 Office visit Ulices Winter ARCHERY INSTRUCTOR 08/05/2014 Office visit Ulices Jonesran ARCHERY INSTRUCTOR 06/07/2014 Office visit Ulices Winter ARCHERY INSTRUCTOR 05/06/2014 Office visit Ulices Winter ARCHERY INSTRUCTOR 04/12/2014 Office visit Ulices Winter ARCHERY INSTRUCTOR 09/21/2011 [facility] Rama Watkins MD
--- OUTSIDE RECORDS SUMMARY | 2018-09-11 19:37 | XMS REPORT ---
Author Author Moise Hernadez [facility] Address [address] [place], [place] [address] Care Team Providers Care Credit Analysis Manager Name Role Phone Moise Hernadez PCP Ulices Winter PreferredProvider Allergies and Adverse Reactions Name Reaction Notes Ceftin fever Latex burning Plan of Treatment Planned Activity Comments Planned Date Planned Time Plan/Goal Hx of pre-term delivery x2, Hep C carrier, child with spina bifida, meth abuse and late care 05/18/2018 10:45 AM LFT (liver function test) 04/27/2018 12:00 AM HCV RNA detection ser/plas amplified probe 04/27/2018 12:00 AM Ultrasound, OB complete >14 weeks 05/20/2018 12:00 AM Medications Active Name Start Date [...] Policy Number Policy Group Number Start Date [facility] [id number] N/A History of Encounters Visit Date Visit Type Provider 05/25/2018 Office visit Moise Hernadez MD 04/27/2018 Office visit Moise Hernadez MD 04/15/2018 Office visit Bushra Bryant RFID SYSTEMS ARCHITECT 12/16/2017 Hospital Yannick Painting MD 10/10/2017 Office visit Bushra Bryant RFID SYSTEMS ARCHITECT 10/06/2017 Office visit Bushra Bryant RFID SYSTEMS ARCHITECT 07/30/2017 Office visit Ulices Winter RFID SYSTEMS ARCHITECT 07/18/[address] Dora Khan MD 03/30/2017 Surgery Parker Rutherford MD 03/29/2017 Office visit Roman Dubois PA-C 12/18/2016 Office visit Ulices Winter RFID SYSTEMS ARCHITECT 10/24/2016 Hospital Yannick Painting MD 07/30/2016 Office visit Ulices Winter RFID SYSTEMS ARCHITECT 11/03/2015 Office visit Ulices Jonesran RFID SYSTEMS ARCHITECT 10/04/2015 Office visit Ulices Jonesran RFID SYSTEMS ARCHITECT 09/07/2015 Office visit Ulices Jonesran RFID SYSTEMS ARCHITECT 07/27/2015 Hospital Mike Sheffield DO 07/24/2015 Office visit Ulices Winter RFID SYSTEMS ARCHITECT 07/11/2015 Office visit Mike Liebermanuman DO 06/29/2015 Office visit Ulices Winter RFID SYSTEMS ARCHITECT 04/28/2015 Office visit Ulices Jonesran RFID SYSTEMS ARCHITECT 04/04/2015 Office visit Ulices Jonesran RFID SYSTEMS ARCHITECT 03/07/2015 Office visit Ulices Winter RFID SYSTEMS ARCHITECT 02/08/2015 Office visit Ulices Winter RFID SYSTEMS ARCHITECT 01/25/2015 Office visit Ulices Jonesran RFID SYSTEMS ARCHITECT 01/09/2015 Office visit Ulices Jonesran RFID SYSTEMS ARCHITECT 12/02/2014 Office visit Ulices Winter RFID SYSTEMS ARCHITECT 11/09/2014 Office visit Ulices Winter RFID SYSTEMS ARCHITECT 10/14/2014 Office visit Ulices Jonesran RFID SYSTEMS ARCHITECT 10/05/2014 Office visit Ulices Jonesran RFID SYSTEMS ARCHITECT 08/29/2014 Office visit Ulices Jonesran RFID SYSTEMS ARCHITECT 08/05/2014 Office visit Ulices Jonesran RFID SYSTEMS ARCHITECT 06/07/2014 Office visit Ulices Jonesran RFID SYSTEMS ARCHITECT 05/06/2014 Office visit Ulices Winter RFID SYSTEMS ARCHITECT 04/12/2014 Office visit Ulices Jonesran RFID SYSTEMS ARCHITECT 09/21/2011 Hospital Rama Watkins MD
--- OUTSIDE RECORDS SUMMARY | 2018-09-11 19:37 | XMS REPORT ---
Author Author Moise Hernadez [facility] Address [address] [place], [place] [address] Care Team Providers Care Real Time Operator Name Role Phone Moise Hernadez PCP Ulices [...] Policy Number Policy Group Number Start Date [facility] [id number] N/A History of Encounters Visit Date Visit Type Provider 05/25/2018 Office visit Moise Hernadez MD 04/27/2018 Office visit Moise Hernadez MD 04/15/2018 Office visit Bushra Bryant INSURANCE VERIFICATION REP 12/16/2017 Hospital Yannick Painting MD 10/10/2017 Office visit Bushra Bryant INSURANCE VERIFICATION REP 10/06/2017 Office visit Bushra Bryant INSURANCE VERIFICATION REP 07/30/2017 Office visit Ulices Winter INSURANCE VERIFICATION REP 07/18/[address] Dora Khan MD 03/30/2017 Surgery Parker Rutherford MD 03/29/2017 Office visit Roman Dubois PA-C 12/18/2016 Office visit Ulices Winter INSURANCE VERIFICATION REP 10/24/2016 Hospital Yannick Painting MD 07/30/2016 Office visit Ulices Winter INSURANCE VERIFICATION REP 11/03/2015 Office visit Ulices Jonesran INSURANCE VERIFICATION REP 10/04/2015 Office visit Ulices Jonesran INSURANCE VERIFICATION REP 09/07/2015 Office visit Ulices Jonesran INSURANCE VERIFICATION REP 07/27/2015 Hospital Mike Sheffield DO 07/24/2015 Office visit Ulices Winter INSURANCE VERIFICATION REP 07/11/2015 Office visit Mike Liebermanuman DO 06/29/2015 Office visit Ulices Winter INSURANCE VERIFICATION REP 04/28/2015 Office visit Ulices Jonesran INSURANCE VERIFICATION REP 04/04/2015 Office visit Ulices Jonesran INSURANCE VERIFICATION REP 03/07/2015 Office visit Ulices Winter INSURANCE VERIFICATION REP 02/08/2015 Office visit Ulices Winter INSURANCE VERIFICATION REP 01/25/2015 Office visit Ulices Jonesran INSURANCE VERIFICATION REP 01/09/2015 Office visit Ulices Jonesran INSURANCE VERIFICATION REP 12/02/2014 Office visit Ulices Winter INSURANCE VERIFICATION REP 11/09/2014 Office visit Ulices Winter INSURANCE VERIFICATION REP 10/14/2014 Office visit Ulices Jonesran INSURANCE VERIFICATION REP 10/05/2014 Office visit Ulices Jonesran INSURANCE VERIFICATION REP 08/29/2014 Office visit Ulices Jonesran INSURANCE VERIFICATION REP 08/05/2014 Office visit Ulices Jonesran INSURANCE VERIFICATION REP 06/07/2014 Office visit Ulices Jonesran INSURANCE VERIFICATION REP 05/06/2014 Office visit Ulices Winter INSURANCE VERIFICATION REP 04/12/2014 Office visit Ulices Jonesran INSURANCE VERIFICATION REP 09/21/2011 Hospital Rama Watkins MD
--- OUTSIDE RECORDS SUMMARY | 2018-09-11 19:38 | XMS REPORT ---
Author Author Moise Hernadez [facility] Address [address] [place], [place] [address] Care Team Providers Care Transit Planner Name Role Phone Moise Hernadez PCP Ulices [...] 05/07/2018 12:00 AM OB US LIMITED FETUS(S) Returned 04/28/2018 12:00 AM Consult/Referral Reviewed 08/29/2014 12:00 [...] 10:52AM Normal in multigravida in second trimester May 07 2018 3:22PM Payers Insurance Name Company Name Plan Name Plan Number Policy Number Policy Group Number Start Date Sherry Powell [id number] N/A History of Encounters Visit Date Visit Type Provider 04/27/2018 Office visit Moise Hernadez MD 04/15/2018 Office visit Bushra Bryant APRN 12/16/2017 Hospital Yannick Painting MD 10/10/2017 Office visit Bushra Bryant PICKET LABOR UNION 10/06/2017 Office visit Bushra Bryant PICKET LABOR UNION 07/30/2017 Office visit Ulices Winter PICKET LABOR UNION 07/18/[address] Dora Khan MD 03/30/2017 Surgery Parker Rutherford MD 03/29/2017 Office visit Roman Dubois PA-C 12/18/2016 Office visit Ulices Winter PICKET LABOR UNION 10/24/2016 Hospital Yannick Painting MD 07/30/2016 Office visit Ulices Winter PICKET LABOR UNION 11/03/2015 Office visit Ulices Jonesran PICKET LABOR UNION 10/04/2015 Office visit Ulices Jonesran PICKET LABOR UNION 09/07/2015 Office visit Ulices Jonesran PICKET LABOR UNION 07/27/2015 Hospital Mike Sheffield DO 07/24/2015 Office visit Ulices Winter PICKET LABOR UNION 07/11/2015 Office visit Mike Liebermanuman DO 06/29/2015 Office visit Ulices Winter PICKET LABOR UNION 04/28/2015 Office visit Ulices Jonesran PICKET LABOR UNION 04/04/2015 Office visit Ulices Jonesran PICKET LABOR UNION 03/07/2015 Office visit Ulices Winter PICKET LABOR UNION 02/08/2015 Office visit Ulices Winter PICKET LABOR UNION 01/25/2015 Office visit Ulices Jonesran PICKET LABOR UNION 01/09/2015 Office visit Ulices Jonesran PICKET LABOR UNION 12/02/2014 Office visit Ulices Winter PICKET LABOR UNION 11/09/2014 Office visit Ulices Winter PICKET LABOR UNION 10/14/2014 Office visit Ulices Jonesran PICKET LABOR UNION 10/05/2014 Office visit Ulices Jonesran PICKET LABOR UNION 08/29/2014 Office visit Ulices Jonesran PICKET LABOR UNION 08/05/2014 Office visit Ulices Jonesran PICKET LABOR UNION 06/07/2014 Office visit Ulices Jonesran PICKET LABOR UNION 05/06/2014 Office visit Ulices Winter PICKET LABOR UNION 04/12/2014 Office visit Ulices Jonesran PICKET LABOR UNION 09/21/2011 Hospital Rama Watkins MD
--- OUTSIDE RECORDS SUMMARY | 2018-09-11 19:39 | XMS REPORT ---
Author Author Moise Hernadez [facility] Address [address] [place], [place] [id number] Care Team Providers Care Synthetic Staple Extruder Name Role Phone Moise Hernadez PCP Ulices [...] detection ser/plas amplified probe 04/27/2018 12:00 AM Ob Limited Sono 05/07/2018 12:00 AM Ultrasound, OB complete >14 weeks [...] AM HERPES SIMPLEX TYPE 2 TEST Reviewed 04/28/2018 12:00 AM Consult/Referral Reviewed 08/29/2014 [...] Policy Number Policy Group Number Start Date [facility] [id number] N/A History of Encounters Visit Date Visit Type Provider 04/27/2018 Office visit Moise Hernadez MD 04/15/2018 Office visit Bushra Bryant APRN 12/16/2017 Hospital Yannick Painting MD 10/10/2017 Office visit Bushra Bryant SECURITY ATTENDANT 10/06/2017 Office visit Bushra Bryant SECURITY ATTENDANT 07/30/2017 Office visit Ulices Winter SECURITY ATTENDANT 07/18/[address] Dora Khan MD 03/30/2017 Surgery Parker Rutherford MD 03/29/2017 Office visit Roman Dubois PA-C 12/18/2016 Office visit Ulices Winter SECURITY ATTENDANT 10/24/2016 Hospital Yannick Painting MD 07/30/2016 Office visit Ulices Winter SECURITY ATTENDANT 11/03/2015 Office visit Ulices Jonesran SECURITY ATTENDANT 10/04/2015 Office visit Ulices Jonesran SECURITY ATTENDANT 09/07/2015 Office visit Ulices Winter SECURITY ATTENDANT 07/27/2015 Hospital Mike Nettie DO 07/24/2015 Office visit Ulices Winter SECURITY ATTENDANT 07/11/2015 Office visit Mike Bouman DO 06/29/2015 Office visit Ulices Winter SECURITY ATTENDANT 04/28/2015 Office visit Ulices Jonesran SECURITY ATTENDANT 04/04/2015 Office visit Ulices Jonesran SECURITY ATTENDANT 03/07/2015 Office visit Ulices Winter SECURITY ATTENDANT 02/08/2015 Office visit Ulices Winter SECURITY ATTENDANT 01/25/2015 Office visit Ulices Winter SECURITY ATTENDANT 01/09/2015 Office visit Ulices Winter SECURITY ATTENDANT 12/02/2014 Office visit Ulices Winter SECURITY ATTENDANT 11/09/2014 Office visit Ulices Winter SECURITY ATTENDANT 10/14/2014 Office visit Ulices Winter SECURITY ATTENDANT 10/05/2014 Office visit Ulices Winter SECURITY ATTENDANT 08/29/2014 Office visit Ulices Jonesran SECURITY ATTENDANT 08/05/2014 Office visit Ulices Jonesran SECURITY ATTENDANT 06/07/2014 Office visit Ulices Winter SECURITY ATTENDANT 05/06/2014 Office visit Ulices Winter SECURITY ATTENDANT 04/12/2014 Office visit Ulices Winter SECURITY ATTENDANT 09/21/2011 Hospital Rama Watkins MD
--- OUTSIDE RECORDS SUMMARY | 2018-09-11 19:40 | XMS REPORT ---
Author Author Moise Hernadez [facility] Address [address] [place], [place] [id number] Care Team Providers Care Pipelines Superintendent Name Role Phone Moise Hernadez PCP Ulices [...] AM Ob Limited Sono 05/07/2018 12:00 AM Medications Active Name Start Date [...] AM OB US >/=14 WKS SNGL FETUS Returned 04/15/2018 12:00 AM CYTOPATH C/V THIN LAYER Returned 04/15/2018 12:00 AM SPECIMEN HANDLING OFFICE-LAB Reviewed 04/15/2018 12:00 AM N.GONORRHOEAE DNA AMP PROB Returned 04/15/2018 12:00 AM CHLAMYDIA CULTURE Returned 04/15/2018 12:00 AM HIV-1ANTIBODY Reviewed 04/15/2018 12:00 AM URINALYSIS AUTO W/SCOPE Reviewed 04/15/2018 12:00 AM OBSTETRIC PANEL Reviewed 04/15/2018 12:00 AM ASSAY OF FERRITIN Reviewed 04/15/2018 12:00 AM URINE DRUG SCREEN RAPID Reviewed 04/15/2018 12:00 AM DETECT AGENT NOS DNA AMP Returned 04/15/2018 12:00 AM TRICHOMONAS VAGINALIS AMPLIF Returned 04/15/2018 12:00 AM HEPATITIS C AB TEST [...] Policy Number Policy Group Number Start Date [facility] [id number] N/A History of Encounters Visit Date Visit Type Provider 04/27/2018 Office visit Moise Hernadez MD 04/15/2018 Office visit Bushra Bryant WINE MAKER 12/16/2017 [facility] Yannick Painting MD 10/10/2017 Office visit Bushra Bryant WINE MAKER 10/06/2017 Office visit Bushra Bryant WINE MAKER 07/30/2017 Office visit Ulices Winter WINE MAKER 07/18/[address] Dora Khan MD 03/30/2017 Surgery Parker Rutherford MD 03/29/2017 Office visit Roman Dubois PA-C 12/18/2016 Office visit Ulices Winter WINE MAKER 10/24/2016 Hospital Yannick Painting MD 07/30/2016 Office visit Ulices Winter WINE MAKER 11/03/2015 Office visit Ulices Winter WINE MAKER 10/04/2015 Office visit Ulices Jonesran WINE MAKER 09/07/2015 Office visit Ulices Jonesran WINE MAKER 07/27/2015 [facility] Mike Sheffield DO 07/24/2015 Office visit Ulices Jonesran WINE MAKER 07/11/2015 Office visit Mike Bouman DO 06/29/2015 Office visit Ulices Jonesran WINE MAKER 04/28/2015 Office visit Ulices Jonesran WINE MAKER 04/04/2015 Office visit Ulices Winter WINE MAKER 03/07/2015 Office visit Ulices Winter WINE MAKER 02/08/2015 Office visit Ulices Winter WINE MAKER 01/25/2015 Office visit Ulices Jonesran WINE MAKER 01/09/2015 Office visit Ulices Jonesran WINE MAKER 12/02/2014 Office visit Ulices Jonesran WINE MAKER 11/09/2014 Office visit Ulices Jonesran WINE MAKER 10/14/2014 Office visit Ulices Winter WINE MAKER 10/05/2014 Office visit Ulices Jonesran WINE MAKER 08/29/2014 Office visit Ulices Jonesran WINE MAKER 08/05/2014 Office visit Ulices Jonesran WINE MAKER 06/07/2014 Office visit Ulices Winter WINE MAKER 05/06/2014 Office visit Ulices Winter WINE MAKER 04/12/2014 Office visit Ulices Winter WINE MAKER 09/21/2011 [facility] Rama Watkins MD
--- OUTSIDE RECORDS SUMMARY | 2018-09-11 19:41 | XMS REPORT ---
Author Author Moise Hernadez [facility] Address [address] [place], [place] [phone] Care Team Providers Care Roving Frame Tender Name Role Phone Moise Hernadez PCP Ulices [...] Policy Number Policy Group Number Start Date [facility] [id number] N/A History of Encounters Visit Date Visit Type Provider 04/27/2018 Office visit Moise Hernadez MD 04/15/2018 Office visit Bushra Bryant DOCUMENT ADVISOR 12/16/2017 [facility] Yannick Painting MD 10/10/2017 Office visit Bushra Bryant DOCUMENT ADVISOR 10/06/2017 Office visit Bushra Bryant DOCUMENT ADVISOR 07/30/2017 Office visit Ulices Winter DOCUMENT ADVISOR 07/18/[address] Dora Khan MD 03/30/2017 Surgery Parker Rutherford MD 03/29/2017 Office visit Roman Dubois PA-C 12/18/2016 Office visit Ulices Winter DOCUMENT ADVISOR 10/24/2016 Hospital Yannick Painting MD 07/30/2016 Office visit Ulices Winter DOCUMENT ADVISOR 11/03/2015 Office visit Ulices Winter DOCUMENT ADVISOR 10/04/2015 Office visit Ulices Jonesran DOCUMENT ADVISOR 09/07/2015 Office visit Ulices Jonesran DOCUMENT ADVISOR 07/27/2015 [facility] Mike Sheffield DO 07/24/2015 Office visit Ulices Jonesran DOCUMENT ADVISOR 07/11/2015 Office visit Mike Bouman DO 06/29/2015 Office visit Ulices Jonesran DOCUMENT ADVISOR 04/28/2015 Office visit Ulices Jonesran DOCUMENT ADVISOR 04/04/2015 Office visit Ulices Winter DOCUMENT ADVISOR 03/07/2015 Office visit Ulices Winter DOCUMENT ADVISOR 02/08/2015 Office visit Ulices Winter DOCUMENT ADVISOR 01/25/2015 Office visit Ulices Jonesran DOCUMENT ADVISOR 01/09/2015 Office visit Ulices Jonesran DOCUMENT ADVISOR 12/02/2014 Office visit Ulices Jonesran DOCUMENT ADVISOR 11/09/2014 Office visit Ulices Jonesran DOCUMENT ADVISOR 10/14/2014 Office visit Ulices Winter DOCUMENT ADVISOR 10/05/2014 Office visit Ulices Jonesran DOCUMENT ADVISOR 08/29/2014 Office visit Ulices Jonesran DOCUMENT ADVISOR 08/05/2014 Office visit Ulices Jonesran DOCUMENT ADVISOR 06/07/2014 Office visit Ulices Winter DOCUMENT ADVISOR 05/06/2014 Office visit Ulices Winter DOCUMENT ADVISOR 04/12/2014 Office visit Ulices Winter DOCUMENT ADVISOR 09/21/2011 [facility] Rama Watkins MD
--- OUTSIDE RECORDS SUMMARY | 2018-09-11 19:42 | XMS REPORT ---
Author Author Moise Hernadez [facility] Address [address] [place], [place] [id number] Care Team Providers Care Evp Sales Name Role Phone Moise Hernadez PCP Ulices Winter PreferredProvider Allergies and Adverse Reactions Name Reaction Notes Ceftin fever Latex burning Plan of Treatment Planned Activity Comments Planned Date Planned Time Plan/Goal LFT (liver function test) 04/27/2018 12:00 AM [...] AM HERPES SIMPLEX TYPE 2 TEST Reviewed 08/29/2014 12:00 AM SPECIMEN HANDLING OFFICE-LAB [...] Policy Number Policy Group Number Start Date [facility] [id number] N/A History of Encounters Visit Date Visit Type Provider 04/27/2018 Office visit Moise Hernadez MD 04/15/2018 Office visit Bushra Bryant TILE LAYER SUPERVISOR 12/16/2017 [facility] Yannick Painting MD 10/10/2017 Office visit Bushra Bryant TILE LAYER SUPERVISOR 10/06/2017 Office visit Bushra Bryant TILE LAYER SUPERVISOR 07/30/2017 Office visit Ulices Winter TILE LAYER SUPERVISOR 07/18/[address] Dora Khan MD 03/30/2017 Surgery Parker Rutherford MD 03/29/2017 Office visit Roman Dubois PA-C 12/18/2016 Office visit Ulices Winter TILE LAYER SUPERVISOR 10/24/2016 Hospital Yannick Painting MD 07/30/2016 Office visit Ulices Winter TILE LAYER SUPERVISOR 11/03/2015 Office visit Ulices Winter TILE LAYER SUPERVISOR 10/04/2015 Office visit Ulices Winter TILE LAYER SUPERVISOR 09/07/2015 Office visit Ulices Winter TILE LAYER SUPERVISOR 07/27/2015 Hospital Mike Sheffield DO 07/24/2015 Office visit Ulices Winter TILE LAYER SUPERVISOR 07/11/2015 Office visit Mike Sheffield DO 06/29/2015 Office visit Ulices Winter TILE LAYER SUPERVISOR 04/28/2015 Office visit Ulices Winter TILE LAYER SUPERVISOR 04/04/2015 Office visit Ulices Winter TILE LAYER SUPERVISOR 03/07/2015 Office visit Ulices Winter TILE LAYER SUPERVISOR 02/08/2015 Office visit Ulices Winter TILE LAYER SUPERVISOR 01/25/2015 Office visit Ulices Winter TILE LAYER SUPERVISOR 01/09/2015 Office visit Ulices Winter TILE LAYER SUPERVISOR 12/02/2014 Office visit Ulices Winter TILE LAYER SUPERVISOR 11/09/2014 Office visit Ulices Winter TILE LAYER SUPERVISOR 10/14/2014 Office visit Ulices Winter TILE LAYER SUPERVISOR 10/05/2014 Office visit Ulices Winter TILE LAYER SUPERVISOR 08/29/2014 Office visit Ulices Winter TILE LAYER SUPERVISOR 08/05/2014 Office visit Ulices Winter TILE LAYER SUPERVISOR 06/07/2014 Office visit Ulices Winter TILE LAYER SUPERVISOR 05/06/2014 Office visit Ulices Winter TILE LAYER SUPERVISOR 04/12/2014 Office visit Ulices Winter TILE LAYER SUPERVISOR 09/21/2011 [facility] Rama Watkins MD
--- OUTSIDE RECORDS SUMMARY | 2018-09-11 19:43 | XMS REPORT ---
Author Author Moise Hernadez [facility] Address [address] [place], [place] [address] Care Team Providers Care Physiologist Name Role Phone Moise Hernadez PCP Ulices [...] Policy Number Policy Group Number Start Date [facility] [id number] N/A History of Encounters Visit Date Visit Type Provider 04/27/2018 Office visit Moise Hernadez MD 04/15/2018 Office visit Bsuhra Bryant HIGH SPEED WARPER TENDER 12/16/2017 [facility] Yannick Painting MD 10/10/2017 Office visit Bushra Bryant HIGH SPEED WARPER TENDER 10/06/2017 Office visit Bushra Bryant HIGH SPEED WARPER TENDER 07/30/2017 Office visit Ulices Winter HIGH SPEED WARPER TENDER 07/18/[address] Dora Khan MD 03/30/2017 Surgery Parker Rutherford MD 03/29/2017 Office visit Roman Dubois PA-C 12/18/2016 Office visit Ulices Winter HIGH SPEED WARPER TENDER 10/24/2016 Hospital Yannick Painting MD 07/30/2016 Office visit Ulices Winter HIGH SPEED WARPER TENDER 11/03/2015 Office visit Ulices Winter HIGH SPEED WARPER TENDER 10/04/2015 Office visit Ulices Winter HIGH SPEED WARPER TENDER 09/07/2015 Office visit Ulices Winter HIGH SPEED WARPER TENDER 07/27/2015 Hospital Mike Sheffield DO 07/24/2015 Office visit Ulices Winter HIGH SPEED WARPER TENDER 07/11/2015 Office visit Mike Sheffield DO 06/29/2015 Office visit Ulices Winter HIGH SPEED WARPER TENDER 04/28/2015 Office visit Ulices Winter HIGH SPEED WARPER TENDER 04/04/2015 Office visit Ulices Winter HIGH SPEED WARPER TENDER 03/07/2015 Office visit Ulices Winter HIGH SPEED WARPER TENDER 02/08/2015 Office visit Ulices Winter HIGH SPEED WARPER TENDER 01/25/2015 Office visit Ulices Winter HIGH SPEED WARPER TENDER 01/09/2015 Office visit Ulices Winter HIGH SPEED WARPER TENDER 12/02/2014 Office visit Ulices Winter HIGH SPEED WARPER TENDER 11/09/2014 Office visit Ulices Winter HIGH SPEED WARPER TENDER 10/14/2014 Office visit Ulices Winter HIGH SPEED WARPER TENDER 10/05/2014 Office visit Ulices Winter HIGH SPEED WARPER TENDER 08/29/2014 Office visit Ulices Winter HIGH SPEED WARPER TENDER 08/05/2014 Office visit Ulices Winter HIGH SPEED WARPER TENDER 06/07/2014 Office visit Ulices Winter HIGH SPEED WARPER TENDER 05/06/2014 Office visit Ulices Winter HIGH SPEED WARPER TENDER 04/12/2014 Office visit Ulices Winter HIGH SPEED WARPER TENDER 09/21/2011 [facility] Rama Watkins MD
--- OUTSIDE RECORDS SUMMARY | 2018-09-11 19:44 | XMS REPORT ---
Author Author Moise Hernadez [facility] Address [address] [place], [place] [address] Care Team Providers Care Counter Molder Name Role Phone Mosie Hernadez PCP Ulices Winter PreferredProvider Allergies and Adverse Reactions Name Reaction Notes Ceftin fever Latex burning Plan of Treatment Planned Activity Comments Planned Date Planned Time Plan/Goal LFT (liver function test) 04/27/2018 12:00 AM HCV RNA detection ser/plas amplified probe 04/27/2018 12:00 AM Medications Active Name Start Date [...] C/V THIN LAYER Returned 04/15/2018 12:00 AM N.GONORRHOEAE DNA AMP PROB [...] weeks gestation of Apr 27 2018 11:47AM Payers Insurance Name Company Name Plan Name Plan Number Policy Number Policy Group Number Start Date [facility] [id number] N/A History of Encounters Visit Date Visit Type Provider 04/27/2018 Office visit Moise Hernadez MD 04/15/2018 Office visit Bushra Bryant WIRE WEAVING LOOM SETTER 12/16/2017 Hospital Yannick Painting MD 10/10/2017 Office visit Bushra Bryant WIRE WEAVING LOOM SETTER 10/06/2017 Office visit Bushra Bryant APRN 07/30/2017 Office visit Ulices Winter APRN 07/18/[address] Dora Khan MD 03/30/2017 Surgery Parker Rutherford MD 03/29/2017 Office visit Roman Dubois PA-C 12/18/2016 Office visit Ulices Winter APRN 10/24/2016 Hospital Yannick Painting MD 07/30/2016 Office visit Ulices Winter APRN 11/03/2015 Office visit Ulices Winter WIRE WEAVING LOOM SETTER 10/04/2015 Office visit Ulices Winter WIRE WEAVING LOOM SETTER 09/07/2015 Office visit Ulices Winter WIRE WEAVING LOOM SETTER 07/27/2015 Hospital Mike Nettie DO 07/24/2015 Office visit Ulices Winter WIRE WEAVING LOOM SETTER 07/11/2015 Office visit Mike Nettie DO 06/29/2015 Office visit Ulices Winter WIRE WEAVING LOOM SETTER 04/28/2015 Office visit Ulices Winter WIRE WEAVING LOOM SETTER 04/04/2015 Office visit Ulices Winter WIRE WEAVING LOOM SETTER 03/07/2015 Office visit Ulices Winter WIRE WEAVING LOOM SETTER 02/08/2015 Office visit Ulices Winter WIRE WEAVING LOOM SETTER 01/25/2015 Office visit Ulices Winter WIRE WEAVING LOOM SETTER 01/09/2015 Office visit Ulices Winter WIRE WEAVING LOOM SETTER 12/02/2014 Office visit Ulices Winter WIRE WEAVING LOOM SETTER 11/09/2014 Office visit Ulices Winter WIRE WEAVING LOOM SETTER 10/14/2014 Office visit Ulices Winter WIRE WEAVING LOOM SETTER 10/05/2014 Office visit Ulices Winter WIRE WEAVING LOOM SETTER 08/29/2014 Office visit Ulices Winter WIRE WEAVING LOOM SETTER 08/05/2014 Office visit Ulices Winter WIRE WEAVING LOOM SETTER 06/07/2014 Office visit Ulices Winter WIRE WEAVING LOOM SETTER 05/06/2014 Office visit Ulices Winter WIRE WEAVING LOOM SETTER 04/12/2014 Office visit Ulices Winter WIRE WEAVING LOOM SETTER 09/21/2011 [facility] Rama Watkins MD
--- OUTSIDE RECORDS SUMMARY | 2018-09-11 19:45 | XMS REPORT ---
Author Author Moise Hernadez [facility] Address [address] [place], [place] [address] Care Team Providers Care Road Roller Operator Name Role Phone Moise Hernadez PCP Ulices Winter PreferredProvider Allergies and Adverse Reactions Name Reaction Notes Ceftin fever Latex burning Plan of Treatment Planned Activity Comments Planned Date Planned Time Plan/Goal HCV 2 DNA detection PCR 04/27/2018 12:00 AM LFT (liver function test) 04/27/2018 12:00 AM Medications Active Name Start [...] Policy Group Number Start Date [facility] [id number] N/A History of Encounters Visit Date Visit Type Provider 04/27/2018 Office visit Moise Hernadez MD 04/15/2018 Office visit Bushra Bryant LASER/ELECTRO OPTICS TECHNICIAN 12/16/2017 Hospital Yannick Painting MD 10/10/2017 Office visit Bushra Bryant LASER/ELECTRO OPTICS TECHNICIAN 10/06/2017 Office visit Bushra Bryant APRN 07/30/2017 Office visit Ulices Winter APRN 07/18/[address] Dora Khan MD 03/30/2017 Surgery Parker Rutherford MD 03/29/2017 Office visit Roman Dubois PA-C 12/18/2016 Office visit Ulices Winter APRN 10/24/2016 Hospital Yannick Painting MD 07/30/2016 Office visit Ulices Winter APRN 11/03/2015 Office visit Ulices Winter LASER/ELECTRO OPTICS TECHNICIAN 10/04/2015 Office visit Ulices Winter LASER/ELECTRO OPTICS TECHNICIAN 09/07/2015 Office visit Ulices Winter LASER/ELECTRO OPTICS TECHNICIAN 07/27/2015 Hospital Mike Sheffield DO 07/24/2015 Office visit Ulices Winter LASER/ELECTRO OPTICS TECHNICIAN 07/11/2015 Office visit Mike Nettie DO 06/29/2015 Office visit Ulices Winter LASER/ELECTRO OPTICS TECHNICIAN 04/28/2015 Office visit Ulices Winter LASER/ELECTRO OPTICS TECHNICIAN 04/04/2015 Office visit Ulices Winter LASER/ELECTRO OPTICS TECHNICIAN 03/07/2015 Office visit Ulices Winter LASER/ELECTRO OPTICS TECHNICIAN 02/08/2015 Office visit Ulices Winter LASER/ELECTRO OPTICS TECHNICIAN 01/25/2015 Office visit Ulices Winter LASER/ELECTRO OPTICS TECHNICIAN 01/09/2015 Office visit Ulices Winter LASER/ELECTRO OPTICS TECHNICIAN 12/02/2014 Office visit Ulices Winter LASER/ELECTRO OPTICS TECHNICIAN 11/09/2014 Office visit Ulices Winter LASER/ELECTRO OPTICS TECHNICIAN 10/14/2014 Office visit Ulices Winter LASER/ELECTRO OPTICS TECHNICIAN 10/05/2014 Office visit Ulices Winter LASER/ELECTRO OPTICS TECHNICIAN 08/29/2014 Office visit Ulices Winter LASER/ELECTRO OPTICS TECHNICIAN 08/05/2014 Office visit Ulices Winter LASER/ELECTRO OPTICS TECHNICIAN 06/07/2014 Office visit Ulices Winter LASER/ELECTRO OPTICS TECHNICIAN 05/06/2014 Office visit Ulices Winter LASER/ELECTRO OPTICS TECHNICIAN 04/12/2014 Office visit Ulices Winter LASER/ELECTRO OPTICS TECHNICIAN 09/21/2011 [facility] Rama Watkins MD
--- OUTSIDE RECORDS SUMMARY | 2018-09-11 19:45 | XMS REPORT ---
Author Author Moise Hernadez [facility] Address [address] [place], [place] [address] Care Team Providers Care Brewery Technician Name Role Phone Moise Hernadez PCP Ulices [...] Policy Number Policy Group Number Start Date [facility] [id number] N/A History of Encounters Visit Date Visit Type Provider 04/27/2018 Office visit Moise Hernadez MD 04/15/2018 Office visit Bushra Bryant GROCERY STORE ASSOCIATE 12/16/2017 Hospital Yannick Painting MD 10/10/2017 Office visit Bushra Bryant GROCERY STORE ASSOCIATE 10/06/2017 Office visit Bushra Bryant APRN 07/30/2017 Office visit Ulices Winter APRN 07/18/[address] Dora Khan MD 03/30/2017 Surgery Parker Rutherford MD 03/29/2017 Office visit Roman Dubois PA-C 12/18/2016 Office visit Ulices Winter APRN 10/24/2016 Hospital Yannick Painting MD 07/30/2016 Office visit Ulices Winter APRN 11/03/2015 Office visit Ulices Winter GROCERY STORE ASSOCIATE 10/04/2015 Office visit Ulices Winter GROCERY STORE ASSOCIATE 09/07/2015 Office visit Ulices Winter GROCERY STORE ASSOCIATE 07/27/2015 Hospital Mike Sheffield DO 07/24/2015 Office visit Ulices Winter GROCERY STORE ASSOCIATE 07/11/2015 Office visit Mike Nettie DO 06/29/2015 Office visit Ulices Winter GROCERY STORE ASSOCIATE 04/28/2015 Office visit Ulices Winter GROCERY STORE ASSOCIATE 04/04/2015 Office visit Ulices Winter GROCERY STORE ASSOCIATE 03/07/2015 Office visit Ulices Winter GROCERY STORE ASSOCIATE 02/08/2015 Office visit Ulices Winter GROCERY STORE ASSOCIATE 01/25/2015 Office visit Ulices Winter GROCERY STORE ASSOCIATE 01/09/2015 Office visit Ulices Winter GROCERY STORE ASSOCIATE 12/02/2014 Office visit Ulices Winter GROCERY STORE ASSOCIATE 11/09/2014 Office visit Ulices Winter GROCERY STORE ASSOCIATE 10/14/2014 Office visit Ulices Winter GROCERY STORE ASSOCIATE 10/05/2014 Office visit Ulices Winter GROCERY STORE ASSOCIATE 08/29/2014 Office visit Ulices Winter GROCERY STORE ASSOCIATE 08/05/2014 Office visit Ulices Winter GROCERY STORE ASSOCIATE 06/07/2014 Office visit Ulices Winter GROCERY STORE ASSOCIATE 05/06/2014 Office visit Ulices Winter GROCERY STORE ASSOCIATE 04/12/2014 Office visit Ulices Winter GROCERY STORE ASSOCIATE 09/21/2011 [facility] Rama Watkins MD
--- OUTSIDE RECORDS SUMMARY | 2018-09-11 19:46 | XMS REPORT ---
Author Author Moise Hernadez [facility] Address [address] [place], [place] [id number] Care Team Providers Care Director Business Management Name Role Phone Moise Hernadez PCP Ulices [...] Number Start Date [facility] [id number] N/A History of Encounters Visit Date Visit Type Provider 04/27/2018 Office visit Moise Hernadez MD 04/15/2018 Office visit Bushra Bryant GUN REPAIR CLERK 12/16/2017 Hospital Yannick Painting MD 10/10/2017 Office visit Bushra Bryant GUN REPAIR CLERK 10/06/2017 Office visit Bushra Bryant APRN 07/30/2017 Office visit Ulices Winter APRN 07/18/[address] Dora Khan MD 03/30/2017 Surgery Parker Rutherford MD 03/29/2017 Office visit Roman Dubois PA-C 12/18/2016 Office visit Ulices Winter APRN 10/24/2016 Hospital Yannick Painting MD 07/30/2016 Office visit Ulices Winter APRN 11/03/2015 Office visit Ulices Winter GUN REPAIR CLERK 10/04/2015 Office visit Ulices Winter GUN REPAIR CLERK 09/07/2015 Office visit Ulices Winter GUN REPAIR CLERK 07/27/2015 Hospital Mike Sheffield DO 07/24/2015 Office visit Ulices Winter GUN REPAIR CLERK 07/11/2015 Office visit Mike Nettie DO 06/29/2015 Office visit Ulices Winter GUN REPAIR CLERK 04/28/2015 Office visit Ulices Winter GUN REPAIR CLERK 04/04/2015 Office visit Ulices Winter GUN REPAIR CLERK 03/07/2015 Office visit Ulices Winter GUN REPAIR CLERK 02/08/2015 Office visit Ulices Winter GUN REPAIR CLERK 01/25/2015 Office visit Ulices Winter GUN REPAIR CLERK 01/09/2015 Office visit Ulices Winter GUN REPAIR CLERK 12/02/2014 Office visit Ulices Winter GUN REPAIR CLERK 11/09/2014 Office visit Ulices Winter GUN REPAIR CLERK 10/14/2014 Office visit Ulices Winter GUN REPAIR CLERK 10/05/2014 Office visit Ulices Winter GUN REPAIR CLERK 08/29/2014 Office visit Ulices Winter GUN REPAIR CLERK 08/05/2014 Office visit Ulices Winter GUN REPAIR CLERK 06/07/2014 Office visit Ulices Winter GUN REPAIR CLERK 05/06/2014 Office visit Ulices Winter GUN REPAIR CLERK 04/12/2014 Office visit Ulices Winter GUN REPAIR CLERK 09/21/2011 [facility] Rama Watkins MD
--- OUTSIDE RECORDS SUMMARY | 2018-09-11 19:47 | XMS REPORT ---
Author Author Moise Hernadez [facility] Address [address] [place], [place] [id number] Care Team Providers Care Park Worker Supervisor Name Role Phone Moise Hernadez PCP Ulices Winter PreferredProvider Allergies and Adverse Reactions Name Reaction Notes Ceftin fever Latex burning Plan of Treatment Not available. Medications Active Name Start Date Estimated Completion [...] Hyperemesis, antepartum, mild Apr 15 2018 2:55PM Payers Insurance Name Company Name Plan Name Plan Number Policy Number Policy Group Number Start Date [id number] N/A History of Encounters Visit Date Visit Type Provider 04/27/2018 Office visit Moise Hernadez MD 04/15/2018 Office visit Bushra Bryant APRN 12/16/2017 [facility] Yannick Painting MD 10/10/2017 Office visit Bushra Bryant APRN 10/06/2017 Office visit Bushra Bryant APRN 07/30/2017 [...] Ulices Winter APRN 07/11/2015 Office visit Mike Liebermanuman DO 06/29/2015 Office visit Ulices Winter AMMONIA NITRATE OPERATOR 04/28/2015 Office visit Ulices Winter AMMONIA NITRATE OPERATOR 04/04/2015 Office visit Ulices Winter AMMONIA NITRATE OPERATOR 03/07/2015 Office visit Ulices Winter AMMONIA NITRATE OPERATOR 02/08/2015 Office visit Ulices Winter AMMONIA NITRATE OPERATOR 01/25/2015 Office visit Ulices Winter AMMONIA NITRATE OPERATOR 01/09/2015 Office visit Ulices Winter AMMONIA NITRATE OPERATOR 12/02/2014 Office visit Ulices Winter AMMONIA NITRATE OPERATOR 11/09/2014 Office visit Ulices Winter AMMONIA NITRATE OPERATOR 10/14/2014 Office visit Ulices Winter AMMONIA NITRATE OPERATOR 10/05/2014 Office visit Ulices Winter AMMONIA NITRATE OPERATOR 08/29/2014 Office visit Ulices Winter AMMONIA NITRATE OPERATOR 08/05/2014 Office visit Ulices Winter AMMONIA NITRATE OPERATOR 06/07/2014 Office visit Ulices Winter AMMONIA NITRATE OPERATOR 05/06/2014 Office visit Ulices Winter AMMONIA NITRATE OPERATOR 04/12/2014 Office visit Ulices Winter AMMONIA NITRATE OPERATOR 09/21/2011 [facility] Rama Watkins MD
--- OUTSIDE RECORDS SUMMARY | 2018-09-11 19:48 | XMS REPORT ---
Author Author Moise Hernadez [facility] Address [address] [place], [place] [id number] Care Team Providers Care Geothermal Operating Engineer Name Role Phone Moise Hernadez PCP Ulices [...] Policy Number Policy Group Number Start Date [id number] N/A History of Encounters Visit Date Visit Type Provider 04/27/2018 Office visit Moise Hernadez MD 04/15/2018 Office visit Bushra Bryant APRN 12/16/2017 [facility] Yannick Painting MD 10/10/2017 Office visit Bushra Bryant APRN 10/06/2017 Office visit Bushra Bryant APRN 07/30/2017 Office visit Ulices Winter APRN 07/18/[address] Dora Khan MD 03/30/2017 Surgery Parker Rutherford MD 03/29/2017 Office visit Roman Dubois PA-C 12/18/2016 Office visit Ulices Winter APRN 10/24/2016 Hospital Yannick Painting MD 07/30/2016 Office visit Ulcies Winter APRN 11/03/2015 Office visit Ulices Winter APRN 10/04/2015 Office visit Ulices Winter APRN 09/07/2015 Office visit Ulices Winter APRN 07/27/2015 Hospital Mike Sheffield DO 07/24/2015 Office visit Ulices Winter APRN 07/11/2015 Office visit Mike Liebermanuman DO 06/29/2015 Office visit Ulices Winter LAUNCHMAN 04/28/2015 Office visit Ulices Winter LAUNCHMAN 04/04/2015 Office visit Ulices Winter LAUNCHMAN 03/07/2015 Office visit Ulices Winter LAUNCHMAN 02/08/2015 Office visit Ulices Winter LAUNCHMAN 01/25/2015 Office visit Ulices Winter LAUNCHMAN 01/09/2015 Office visit Ulices Winter LAUNCHMAN 12/02/2014 Office visit Ulices Winter LAUNCHMAN 11/09/2014 Office visit Ulices Winter LAUNCHMAN 10/14/2014 Office visit Ulices Winter LAUNCHMAN 10/05/2014 Office visit Ulices Winter LAUNCHMAN 08/29/2014 Office visit Ulices Winter LAUNCHMAN 08/05/2014 Office visit Ulices Winter LAUNCHMAN 06/07/2014 Office visit Ulices Winter LAUNCHMAN 05/06/2014 Office visit Ulices Winter LAUNCHMAN 04/12/2014 Office visit Ulices Winter LAUNCHMAN 09/21/2011 [facility] Rama Watkins MD
--- OUTSIDE RECORDS SUMMARY | 2018-09-11 19:49 | XMS REPORT ---
Author Author Bushra Bryant [facility] Address [address] [place], [place] [phone] Care Team Providers Care Central Supply Clerk Name Role Phone Bushra Bryant PCP Ulices Winter PreferredProvider Allergies and Adverse Reactions Name Reaction Notes Ceftin fever Latex burning Plan of Treatment Planned Activity Comments Planned Date Planned Time Plan/Goal OB Complete Sono, Greater than or Equal to 14 weeks 04/21/2018 12:00 AM Medications Active Name Start Date [...] once daily at bedtime for 5 days Name Start Date Expiration Date SIG [...] per day as needed for 30 days Discontinued Name Start Date Discontinued Date [...] 12:00 AM DRAINAGE OF SKIN ABSCESS Reviewed 04/15/2018 12:00 AM CYTOPATH C/V THIN [...] Policy Number Policy Group Number Start Date [id number] N/A History of Encounters Visit Date Visit Type Provider 04/15/2018 Office visit Bushra Bryant APRN 12/16/2017 [...] Office visit Ulices Winter APRN 07/27/2015 Hospital iMke Sheffield DO 07/24/2015 Office visit Ulices Winter APRN 07/11/2015 Office visit Mike Sheffield DO 06/29/2015 Office visit Ulices Winter APRN 04/28/2015 Office visit Ulices Winter DOG BOARDER 04/04/2015 Office visit Ulices Winter DOG BOARDER 03/07/2015 Office visit Ulices Winter DOG BOARDER 02/08/2015 Office visit Ulices Winter DOG BOARDER 01/25/2015 Office visit Ulices Winter DOG BOARDER 01/09/2015 Office visit Ulices Winter DOG BOARDER 12/02/2014 Office visit Ulices Winter DOG BOARDER 11/09/2014 Office visit Ulices Winter DOG BOARDER 10/14/2014 Office visit Ulices Winter DOG BOARDER 10/05/2014 Office visit Ulices Winter DOG BOARDER 08/29/2014 Office visit Ulices Winter DOG BOARDER 08/05/2014 Office visit Ulices Winter DOG BOARDER 06/07/2014 Office visit Ulices Winter DOG BOARDER 05/06/2014 Office visit Ulices Winter DOG BOARDER 04/12/2014 Office visit Ulices Winter DOG BOARDER 09/21/2011 [facility] Rama Watkins MD
--- OUTSIDE RECORDS SUMMARY | 2018-09-11 19:50 | XMS REPORT ---
Author Bushra Griffin [facility] Address [address] [place], [place] [phone] Care Team Providers Care Civil Engineering Teacher Name Role Phone Bushra Bryant PCP Ulices Winter PreferredProvider Allergies and Adverse Reactions Name Reaction Notes Ceftin fever Latex burning Plan of Treatment Planned Activity Comments Planned Date Planned Time Plan/Goal OB Complete Sono, Greater than or Equal to 14 weeks 04/21/2018 12:00 AM *Thin layer pap with reflex to HPV ; cervical/vaginal (ThinPrep or Surepath) 04/15/2018 12:00 AM Gonorrhea 04/15/2018 12:00 AM Chlamydia 04/15/2018 12:00 AM HIV-1 antibody 04/15/2018 12:00 AM UA with Culture and Sensitivity 04/15/2018 12:00 AM panel (CBC with differential, automated, Hepatitis B surface antigen (HBsAg), Rubella antibody, RBC antibody screen, Blood typing (ABO and Rh(D), RPR w/ Reflex to TP 04/15/2018 12:00 AM FERRITIN 04/15/2018 12:00 AM URINE DRUG SCREEN RAPID 04/15/2018 12:00 AM TRICHOMONAS AMPLIFIED 04/15/2018 12:00 AM TRICHOMONAS AMPLIFIED 04/15/2018 12:00 AM HEPATITIS C AB 04/15/2018 12:00 AM HSV 1 + 2 ab 04/15/2018 12:00 AM HSV 1 + 2 ab 04/15/2018 12:00 AM Medications Active Name Start Date [...] 12:00 AM DRAINAGE OF SKIN ABSCESS Reviewed 08/29/2014 12:00 AM SPECIMEN HANDLING OFFICE-LAB [...] ABSCESS #2 SPECIMEN SOURCE: VULVA ABSCESS #2 History Of Immunizations Not available. History of [...] Policy Number Policy Group Number Start Date [facility] [id number] N/A History of Encounters Visit Date Visit Type Provider 04/15/2018 Office visit Bushra Bryant CAREER DEVELOPMENT CONSULTANT 12/16/2017 [facility] Yannick Painting MD 10/10/2017 Office visit Bushra Bryant CAREER DEVELOPMENT CONSULTANT 10/06/2017 Office visit Bushra Bryant CAREER DEVELOPMENT CONSULTANT 07/30/2017 Office visit Ulices Winter CAREER DEVELOPMENT CONSULTANT 07/18/[address] Dora Khan MD 03/30/2017 Surgery Parker Rutherford MD 03/29/2017 Office visit Roman Dubois PA-C 12/18/2016 Office visit Ulices Winter CAREER DEVELOPMENT CONSULTANT 10/24/2016 Hospital Yannick Painting MD 07/30/2016 Office visit Ulices Winter CAREER DEVELOPMENT CONSULTANT 11/03/2015 Office visit Ulices Winter CAREER DEVELOPMENT CONSULTANT 10/04/2015 Office visit Ulices Jonesran CAREER DEVELOPMENT CONSULTANT 09/07/2015 Office visit Ulices Jonesran CAREER DEVELOPMENT CONSULTANT 07/27/2015 Hospital Mike Nettie DO 07/24/2015 Office visit Ulices Jonesran CAREER DEVELOPMENT CONSULTANT 07/11/2015 Office visit Mike Bouman DO 06/29/2015 Office visit Ulices Jonesran CAREER DEVELOPMENT CONSULTANT 04/28/2015 Office visit Ulices Winter CAREER DEVELOPMENT CONSULTANT 04/04/2015 Office visit Ulices Jonesran CAREER DEVELOPMENT CONSULTANT 03/07/2015 Office visit Ulices Winter CAREER DEVELOPMENT CONSULTANT 02/08/2015 Office visit Ulices Winter CAREER DEVELOPMENT CONSULTANT 01/25/2015 Office visit Ulices Jonesran CAREER DEVELOPMENT CONSULTANT 01/09/2015 Office visit Ulices Winter CAREER DEVELOPMENT CONSULTANT 12/02/2014 Office visit Ulices Jonesran CAREER DEVELOPMENT CONSULTANT 11/09/2014 Office visit Ulices Winter CAREER DEVELOPMENT CONSULTANT 10/14/2014 Office visit Ulices Winter CAREER DEVELOPMENT CONSULTANT 10/05/2014 Office visit Ulices Jonesran CAREER DEVELOPMENT CONSULTANT 08/29/2014 Office visit Ulices Winter CAREER DEVELOPMENT CONSULTANT 08/05/2014 Office visit Ulices Winter CAREER DEVELOPMENT CONSULTANT 06/07/2014 Office visit Ulices Winter CAREER DEVELOPMENT CONSULTANT 05/06/2014 Office visit Ulices Winter CAREER DEVELOPMENT CONSULTANT 04/12/2014 Office visit Ulices Winter CAREER DEVELOPMENT CONSULTANT 09/21/2011 Hospital Rama Watkins MD
--- OUTSIDE RECORDS SUMMARY | 2018-09-11 19:51 | XMS REPORT ---
Author Bushra Griffin [facility] Address [address] [place], [place] [phone] Care Team Providers Care Forestry Professor Name Role Phone Bushra Bryant PCP Ulices [...] Policy Number Policy Group Number Start Date [facility] [id number] N/A History of Encounters Visit Date Visit Type Provider 04/15/2018 Office visit Bushra Bryant SALES AND SERVICE ADVISOR 12/16/2017 [facility] Yannick Painting MD 10/10/2017 Office visit Bushra Bryant SALES AND SERVICE ADVISOR 10/06/2017 Office visit Bushra Bryant SALES AND SERVICE ADVISOR 07/30/2017 Office visit Ulices Winter SALES AND SERVICE ADVISOR 07/18/[address] Dora Khan MD 03/30/2017 Surgery Parker Rutherford MD 03/29/2017 Office visit Roman Dubois PA-C 12/18/2016 Office visit Ulices Winter SALES AND SERVICE ADVISOR 10/24/2016 Hospital Yannick Painting MD 07/30/2016 Office visit Ulices Winter SALES AND SERVICE ADVISOR 11/03/2015 Office visit Ulices Winter SALES AND SERVICE ADVISOR 10/04/2015 Office visit Ulices Jonesran SALES AND SERVICE ADVISOR 09/07/2015 Office visit Ulices Jonesran SALES AND SERVICE ADVISOR 07/27/2015 Hospital Mike Nettie DO 07/24/2015 Office visit Ulices Jonesran SALES AND SERVICE ADVISOR 07/11/2015 Office visit Mike Bouman DO 06/29/2015 Office visit Ulices Jonesran SALES AND SERVICE ADVISOR 04/28/2015 Office visit Ulices Winter SALES AND SERVICE ADVISOR 04/04/2015 Office visit Ulices Jonesran SALES AND SERVICE ADVISOR 03/07/2015 Office visit Ulices Winter SALES AND SERVICE ADVISOR 02/08/2015 Office visit Ulices Winter SALES AND SERVICE ADVISOR 01/25/2015 Office visit Ulices Jonesran SALES AND SERVICE ADVISOR 01/09/2015 Office visit Ulices Winter SALES AND SERVICE ADVISOR 12/02/2014 Office visit Ulices Jonesran SALES AND SERVICE ADVISOR 11/09/2014 Office visit Ulices Winter SALES AND SERVICE ADVISOR 10/14/2014 Office visit Ulices Winter SALES AND SERVICE ADVISOR 10/05/2014 Office visit Ulices Jonesran SALES AND SERVICE ADVISOR 08/29/2014 Office visit Ulices Winter SALES AND SERVICE ADVISOR 08/05/2014 Office visit Ulices Winter SALES AND SERVICE ADVISOR 06/07/2014 Office visit Ulices Winter SALES AND SERVICE ADVISOR 05/06/2014 Office visit Ulices Winter SALES AND SERVICE ADVISOR 04/12/2014 Office visit Ulices Winter SALES AND SERVICE ADVISOR 09/21/2011 Hospital Rama Watkins MD
--- OUTSIDE RECORDS SUMMARY | 2018-09-11 19:51 | XMS REPORT ---
Author Bushra Griffin [facility] Address [address] [place], [place] [phone] Care Team Providers Care Wagon Driver Name Role Phone Bushra Bryant PCP Ulices [...] Policy Number Policy Group Number Start Date [facility] [id number] N/A History of Encounters Visit Date Visit Type Provider 04/15/2018 Office visit Bushra Bryant FLY RAIL OPERATOR 12/16/2017 [facility] Yannick Painting MD 10/10/2017 Office visit Bushra Byrant FLY RAIL OPERATOR 10/06/2017 Office visit Bushra Bryant FLY RAIL OPERATOR 07/30/2017 Office visit Ulices Winter FLY RAIL OPERATOR 07/18/[address] Dora Khan MD 03/30/2017 Surgery Parker Rutherford MD 03/29/2017 Office visit Roman Dubois PA-C 12/18/2016 Office visit Ulices Winter FLY RAIL OPERATOR 10/24/2016 Hospital Yannick Painting MD 07/30/2016 Office visit Ulices Winter FLY RAIL OPERATOR 11/03/2015 Office visit Ulices Winter FLY RAIL OPERATOR 10/04/2015 Office visit Ulices Jonesran FLY RAIL OPERATOR 09/07/2015 Office visit Ulices Jonesran FLY RAIL OPERATOR 07/27/2015 Hospital Mike Nettie DO 07/24/2015 Office visit Ulices Jonesran FLY RAIL OPERATOR 07/11/2015 Office visit Mike Bouman DO 06/29/2015 Office visit Ulices Jonesran FLY RAIL OPERATOR 04/28/2015 Office visit Ulices Winter FLY RAIL OPERATOR 04/04/2015 Office visit Ulices Jonesran FLY RAIL OPERATOR 03/07/2015 Office visit Ulices Winter FLY RAIL OPERATOR 02/08/2015 Office visit Ulices Winter FLY RAIL OPERATOR 01/25/2015 Office visit Ulices Jonesran FLY RAIL OPERATOR 01/09/2015 Office visit Ulices Winter FLY RAIL OPERATOR 12/02/2014 Office visit Ulices Jonesran FLY RAIL OPERATOR 11/09/2014 Office visit Ulices Winter FLY RAIL OPERATOR 10/14/2014 Office visit Ulicse Winter FLY RAIL OPERATOR 10/05/2014 Office visit Ulices Jonesran FLY RAIL OPERATOR 08/29/2014 Office visit Ulices Winter FLY RAIL OPERATOR 08/05/2014 Office visit Ulices Winter FLY RAIL OPERATOR 06/07/2014 Office visit Ulices Winter FLY RAIL OPERATOR 05/06/2014 Office visit Ulices Winter FLY RAIL OPERATOR 04/12/2014 Office visit Ulices Winter FLY RAIL OPERATOR 09/21/2011 Hospital Rama Watkins MD
--- OUTSIDE RECORDS SUMMARY | 2018-09-11 19:52 | XMS REPORT ---
Author Bushra Griffin [facility] Address [address] [place], [place] [phone] Care Team Providers Care Oil Burner Installer Name Role Phone Bushra Bryant PCP Ulices Winter PreferredProvider Allergies and Adverse Reactions Name Reaction Notes Ceftin fever Latex burning Plan of Treatment Planned Activity Comments Planned Date Planned Time Plan/Goal *Thin layer pap with reflex to HPV [...] 1 + 2 ab 04/15/2018 12:00 AM OB Complete Sono, Greater than or Equal to 14 weeks 04/21/2018 12:00 AM Medications Active Name Start Date Estimated Completion Date SIG Comments Vitamin oral Name Start Date Expiration Date SIG Comments [...] 2:55PM Late care Apr 15 2018 3:42PM Payers Insurance Name Company Name Plan Name Plan Number Policy Number Policy Group Number Start Date [id number] N/A History of Encounters Visit Date Visit Type Provider 04/15/2018 Office visit Bushra Bryant YARDER 12/16/2017 Hospital Yannick Painting MD 10/10/2017 Office visit Bushra Bryant YARDER 10/06/2017 Office visit Bushra Bryant YARDER 07/30/2017 Office visit Ulices Winter YARDER 07/18/[address] Dora Khan MD 03/30/2017 Surgery Parker Rutherford MD 03/29/2017 Office visit Roman Dubois PA-C 12/18/2016 Office visit Ulices Winter YARDER 10/24/2016 Hospital Yannick Painting MD 07/30/2016 Office visit Ulices Winter YARDER 11/03/2015 Office visit Ulices Winter YARDER 10/04/2015 Office visit Ulices Winter YARDER 09/07/2015 Office visit Ulices Winter YARDER 07/27/2015 Hospital Mike Nettie DO 07/24/2015 Office visit Ulices Winter YARDER 07/11/2015 Office visit Mike Sheffield DO 06/29/2015 Office visit Ulices Winter YARDER 04/28/2015 Office visit Ulices Winter YARDER 04/04/2015 Office visit Ulices Winter YARDER 03/07/2015 Office visit Ulices Winter YARDER 02/08/2015 Office visit Ulices Winter YARDER 01/25/2015 Office visit Ulices Winter YARDER 01/09/2015 Office visit Ulices Winter YARDER 12/02/2014 Office visit Ulices Winter YARDER 11/09/2014 Office visit Uliecs Winter YARDER 10/14/2014 Office visit Ulices Winter YARDER 10/05/2014 Office visit Ulices Winter YARDER 08/29/2014 Office visit Ulices Winter YARDER 08/05/2014 Office visit Ulices Winter YARDER 06/07/2014 Office visit Ulices Winter YARDER 05/06/2014 Office visit Ulices Winter YARDER 04/12/2014 Office visit Ulices Winter YARDER 09/21/2011 [facility] Rama Watkins MD
--- OUTSIDE RECORDS SUMMARY | 2018-09-11 19:53 | XMS REPORT ---
Author Author Bsuhra Bryant [facility] Address [address] [place], [place] [address] Care Team Providers Care Grade Foreman Name Role Phone Bushra Bryant PCP Ulices iWnter PreferredProvider Allergies and Adverse Reactions Name Reaction [...] aureus) culture positive Oct 10 2017 10:47AM Payers Insurance Name Company Name Plan Name Plan Number Policy Number Policy Group Number Start Date Sherry Powell [id number] N/A History of Encounters Visit Date Visit Type Provider 04/15/2018 Office visit Bushra Bryant APRN 12/16/2017 Hospital Yannick Painting MD 10/10/2017 Office visit Bushra Bryant AMMONIA BOX TENDER 10/06/2017 Office visit Bushra Bryant AMMONIA BOX TENDER 07/30/2017 Office visit Ulices Winter APRN 07/18/[address] Dora Khan MD 03/30/2017 Surgery Parker Rutherford MD 03/29/2017 Office visit Roman Dubois PA-C 12/18/2016 Office visit Ulices Winter AMMONIA BOX TENDER 10/24/2016 Hospital Yannick Painting MD 07/30/2016 Office visit Ulices Winter APRN 11/03/2015 Office visit Ulices Winter APRN 10/04/2015 Office visit Ulices Winter AMMONIA BOX TENDER 09/07/2015 Office visit Ulices Winter AMMONIA BOX TENDER 07/27/2015 Hospital Mike Sheffield DO 07/24/2015 Office visit Ulices Winter APRN 07/11/2015 Office visit Mike Sheffield DO 06/29/2015 Office visit Ulices Winter APRN 04/28/2015 Office visit Ulices Winter AMMONIA BOX TENDER 04/04/2015 Office visit Ulices Winter APRN 03/07/2015 [...] Winter APRN 04/12/2014 Office visit Ulices Winter APRN 09/21/2011 [facility] Rama Watkins MD
--- OUTSIDE RECORDS SUMMARY | 2018-09-11 19:54 | XMS REPORT ---
Author Author Bushra Bryant [facility] Address [address] [place], [place] [address] Care Team Providers Care Swimming Pool Maintenance Name Role Phone Bushra Bryant PCP Ulices [...] Policy Group Number Start Date Sherry Powell [id number] N/A History of Encounters Visit Date Visit Type Provider 04/15/2018 Office visit Bushra Bryant APRN 12/16/2017 Hospital Yannick Painting MD 10/10/2017 Office visit Bushra Bryant ACID PURIFICATION EQUIPMENT OPERATOR 10/06/2017 Office visit Bushra Bryant ACID PURIFICATION EQUIPMENT OPERATOR 07/30/2017 Office visit Ulices Winter APRN 07/18/[address] Dora Khan MD 03/30/2017 Surgery Parker Rutherford MD 03/29/2017 Office visit Roman Dubois PA-C 12/18/2016 Office visit Ulices Winter ACID PURIFICATION EQUIPMENT OPERATOR 10/24/2016 Hospital Yannick Painting MD 07/30/2016 Office visit Ulices Winter APRN 11/03/2015 Office visit Ulices Winter APRN 10/04/2015 Office visit Ulices Winter ACID PURIFICATION EQUIPMENT OPERATOR 09/07/2015 Office visit Ulices Winter ACID PURIFICATION EQUIPMENT OPERATOR 07/27/2015 Hospital Mike Sheffield DO 07/24/2015 Office visit Ulices Winter APRN 07/11/2015 Office visit Mike Sheffield DO 06/29/2015 Office visit Ulices Winter APRN 04/28/2015 Office visit Ulices Winter ACID PURIFICATION EQUIPMENT OPERATOR 04/04/2015 Office visit Ulices Winter APRN 03/07/2015 [...] 04/12/2014 Office visit Ulices Winter APRN 09/21/2011 [facility] Rama Watkins MD
--- OUTSIDE RECORDS SUMMARY | 2018-09-11 19:54 | XMS REPORT ---
Author Author Bushra Bryant [facility] Address [address] [place], [place] [address] Care Team Providers Care Alternative Energy Engineer Name Role Phone Bushra Bryant PCP Ulices Winter PreferredProvider Allergies and Adverse Reactions Name Reaction Notes Ceftin fever Latex burning Plan of Treatment Not available. Medications Active Name Start Date Estimated Completion Date SIG Comments Ventolin HFA 90 mcg/actuation inhalation HFA aerosol inhaler 07/30/2016 inhale 1 - 2 puffs (90 - 180 mcg) by inhalation route every 4-6 hours as needed hydrocodone-acetaminophen 10-325 mg oral tablet 09/23/2017 take 1 tablet by oral route every 6 hours as needed for pain Klonopin 1 mg oral tablet 09/23/2017 10/23/2017 take 1 tablet (1 mg) by oral route 3 times per day for 30 days mupirocin 2 % topical ointment 10/07/2017 10/12/2017 apply a small amount to the affected area by topical route 3 times per day for 5 days Bactrim DS 800-160 mg oral tablet 10/10/2017 10/20/2017 take 1 tablet by oral route every 12 hours for 10 days Name Start Date Expiration Date SIG [...] oral route twice daily for 7 days Fetzima 40 mg oral capsule,extended release 24 hr 04/08/2017 05/08/2017 take 1 capsule (40 mg) by oral route once daily at approximately the same time each day for 30 days Discontinued Name Start Date Discontinued Date SIG Comments Prozac 20 mg oral capsule 04/12/2014 05/06/2014 take 1 capsule (20 mg) by oral route once daily for 30 days Depakote ER 250 mg oral tablet extended release 24 hr 07/05/2014 08/05/2014 take 1 tablet by oral route daily for 30 days cephalexin 500 mg oral capsule 07/15/2017 07/18/2017 take 1 capsule (500 mg) by oral route every 12 hours for 7 days NuvaRing 0.12-0.015 mg/24 hr vaginal ring 07/18/2017 10/06/2017 insert 1 vaginal ring by vaginal route once a month leave in place for 3 weeks, remove for 1 week Problem List Description Status Onset Anxiety Active Scoliosis of thoracic spine Active Depression Active 05/16/2014 Abdominal pain Active 07/13/2015 Hepatitis C Active Abscess, vulva Active 10/06/2017 MRSA (methicillin resistant staph aureus) culture positive Active 10/10/2017 Vital Signs Date Time BP-Sys(mm[Hg] BP-Tika(mm[Hg]) HR(bpm) RR(rpm) Temp WT HT HC BMI BSA BMI Percentile O2 Sat(%) 10/10/2017 10:42:00 AM 119 mmHg 68 mmHg [...] REMOVE INTRAUTERINE DEVICE Reviewed 10/06/2017 12:00 AM MICROBIOLOGY PROCEDURE Returned 08/29/2014 12:00 AM SPECIMEN HANDLING OFFICE-LAB Reviewed [...] NEGATIVE 07/18/2017 10:42 AM Test, Urine negative History Of Immunizations Not available. History of Past Illness Name Date of Onset Comments Anxiety Scoliosis of thoracic spine Depression 05/16/2014 Hepatitis C Abdominal pain 07/13/2015 Anemia Asthma Abscess, vulva 10/06/2017 MRSA (methicillin resistant staph aureus) culture positive 10/10/2017 Scoliosis Apr 12 2014 2:02PM Pain management [...] Policy Number Policy Group Number Start Date [id number] N/A History of Encounters Visit Date Visit Type Provider 10/10/2017 Office visit Bushra Bryant ADULT PSYCHIATRIST 10/06/2017 Office visit Bushra Bryant ADULT PSYCHIATRIST 07/30/2017 Office visit Ulices Winter APRN 07/18/2017 [...] Sheffield DO 07/24/2015 Office visit Ulices Winter ADULT PSYCHIATRIST 07/11/2015 Office visit Mike Nettie DO 06/29/2015 Office visit Ulices Winter ADULT PSYCHIATRIST 04/28/2015 Office visit Ulices Winter ADULT PSYCHIATRIST 04/04/2015 Office visit Ulices Winter ADULT PSYCHIATRIST 03/07/2015 Office visit Ulices Winter ADULT PSYCHIATRIST 02/08/2015 Office visit Ulices Winter ADULT PSYCHIATRIST 01/25/2015 Office visit Ulices Winter ADULT PSYCHIATRIST 01/09/2015 Office visit Ulices Winter ADULT PSYCHIATRIST 12/02/2014 Office visit Ulices Winter ADULT PSYCHIATRIST 11/09/2014 Office visit Ulices Winter ADULT PSYCHIATRIST 10/14/2014 Office visit Ulices Winter ADULT PSYCHIATRIST 10/05/2014 Office visit Ulices Winter ADULT PSYCHIATRIST 08/29/2014 Office visit Ulices Winter ADULT PSYCHIATRIST 08/05/2014 Office visit Ulices Winter ADULT PSYCHIATRIST 06/07/2014 Office visit Ulices Winter ADULT PSYCHIATRIST 05/06/2014 Office visit Ulices Winter ADULT PSYCHIATRIST 04/12/2014 Office visit Ulices Winter ADULT PSYCHIATRIST 09/21/2011 [facility] Rama Watkins MD
--- OUTSIDE RECORDS SUMMARY | 2018-09-11 19:55 | XMS REPORT ---
Author Author Bushra Bryant [facility] Address [address] [place], [place] [address] Care Team Providers Care Manager Cardiology Name Role Phone Bushra Bryant PCP Ulices Winter PreferredProvider Allergies and Adverse Reactions Name Reaction Notes Ceftin fever Latex burning Plan of Treatment Planned Activity Comments Planned Date Planned Time Plan/Goal Culture and sensitivity of specimen 10/06/2017 12:00 AM Medications Active Name Start Date [...] 30 days mupirocin 2 % topical ointment 10/06/2017 10/11/2017 apply a small amount to the affected area by topical route 3 times per day for 5 days Name Start Date Expiration [...] Hepatitis C Active Abscess, vulva Active 10/06/2017 Vital Signs Date Time BP-Sys(mm[Hg] BP-Tika(mm[Hg]) HR(bpm) RR(rpm) Temp WT HT HC BMI BSA BMI Percentile O2 Sat(%) 10/06/2017 1:52:00 PM 140 mmHg 80 mmHg [...] some day Tobacco Current every day smoker History of Procedures Date Ordered Description Order [...] 07/18/2017 12:00 AM REMOVE INTRAUTERINE DEVICE Reviewed 08/29/2014 12:00 AM SPECIMEN HANDLING OFFICE-LAB [...] pain 07/13/2015 Anemia Asthma Abscess, vulva 10/06/2017 Scoliosis Apr 12 2014 2:02PM Pain management [...] 3:52PM Abscess, vulva Oct 06 2017 1:56PM Payers Insurance Name Company Name Plan Name Plan Number Policy Number Policy Group Number Start Date [id number] N/A History of Encounters Visit Date Visit Type Provider 10/06/2017 Office visit Bushra Bryant APRN 07/30/2017 Office visit Ulices Winter APRN 07/18/[address] Dora Khan MD 03/30/2017 Surgery Parker Rutherford MD 03/29/2017 Office visit Roman Dubois PA-C 12/18/2016 Office visit Uliecs Winter APRN 10/24/2016 [facility] Yannick Painting MD [...] Winter APRN 11/09/2014 Office visit Ulices Winter GRITTING MACHINE OPERATOR 10/14/2014 Office visit Ulices Winter GRITTING MACHINE OPERATOR 10/05/2014 Office visit Ulices Winter GRITTING MACHINE OPERATOR 08/29/2014 Office visit Ulices Winter GRITTING MACHINE OPERATOR 08/05/2014 Office visit Ulices Winter GRITTING MACHINE OPERATOR 06/07/2014 Office visit Ulices Winter GRITTING MACHINE OPERATOR 05/06/2014 Office visit Ulices Winter GRITTING MACHINE OPERATOR 04/12/2014 Office visit Ulices Winter GRITTING MACHINE OPERATOR 09/21/2011 [facility] Rama Watkins MD
--- OUTSIDE RECORDS SUMMARY | 2018-09-11 19:56 | XMS REPORT ---
Author Author Ulices Winter [facility] Address [address] [place], [place] [address] Care Team Providers Care Registration Clerk Name Role Phone Ulices Winter PCP Ulices Winter PreferredProvider Allergies and Adverse Reactions Name Reaction Notes Ceftin Latex Plan of Treatment Planned Activity Comments Planned Date Planned Time Plan/Goal US PELVIC NON-OB 01/03/2017 12:00 AM Medications Active Name Start Date Estimated Completion Date SIG Comments Ventolin HFA 90 mcg/actuation inhalation HFA aerosol inhaler 07/30/2016 inhale 1 - 2 puffs (90 - 180 mcg) by inhalation route every 4-6 hours as needed hydrocodone-acetaminophen 10-325 mg oral tablet 12/18/2016 take 1 tablet by oral route every 6 hours as needed for pain Klonopin 1 mg oral tablet 12/18/2016 01/17/2017 take 1 tablet (1 mg) by oral route 3 times per day for 30 days Name Start Date Expiration [...] oral route twice daily for 7 days Discontinued Name Start Date Discontinued Date SIG Comments Prozac 20 mg oral capsule 04/12/2014 05/06/2014 take 1 capsule (20 mg) by oral route once daily for 30 days Depakote ER 250 mg oral tablet extended release 24 hr 07/05/2014 08/05/2014 take 1 tablet by oral route daily for 30 days Problem List Description Status Onset Anxiety Active Scoliosis of thoracic spine Active Depression Active 05/16/2014 Abdominal pain Active 07/13/2015 Hepatitis C Active Vital Signs Date Time BP-Sys(mm[Hg] BP-Tika(mm[Hg]) HR(bpm) RR(rpm) Temp WT HT HC BMI BSA BMI Percentile O2 Sat(%) 12/18/2016 10:28:00 AM 110 mmHg 80 mmHg 106 bpm 16 rpm 96.7 F 148 lbs 65 in 24.63 kg/m2 1.75 m2 100 % 07/30/2016 9:18:00 AM 110 mmHg 70 mmHg 106 bpm 16 rpm 97.3 F 143.125 lbs 65 in 23.817 kg/m 1.7255 m 99 % 11/03/2015 11:35:00 AM 122 mmHg 88 mmHg 121 bpm 16 rpm 97.2 F 146 lbs 65 in 24.30 kg/m2 1.74 m2 100 % 10/04/2015 1:07:00 PM 130 mmHg 70 mmHg 95 bpm 16 rpm 97.5 F 149 lbs 65 in 24.7946 kg/m 1.7606 m 98 % 09/07/2015 3:55:00 PM 130 mmHg 86 mmHg 129 bpm 18 rpm 97.9 F 137.5 lbs 65 in 22.88 kg/m2 1.69 m2 98 % 07/24/2015 11:21:00 AM 130 mmHg 80 mmHg 110 bpm 18 rpm 97.4 F 142 lbs 65 in 23.6298 kg/m 1.7187 m 98 % 07/11/2015 2:12:00 PM 136 mmHg 77 mmHg 108 bpm 20 rpm 98.8 F 148 lbs 65 in 24.63 kg/m2 1.75 m2 06/29/2015 3:03:00 PM 120 mmHg 80 mmHg 102 bpm 16 rpm 97.4 F 153 lbs 64 in 26.2621 kg/m 1.7703 m 99 % 04/28/2015 10:42:00 AM 110 mmHg 70 mmHg 110 bpm 18 rpm 97.5 F 162 lbs 64 in 27.81 kg/m2 1.82 m2 100 % 04/04/2015 10:16:00 AM 120 mmHg 70 mmHg 116 bpm 16 rpm 96.7 F 160 lbs 64 in 27.4637 kg/m 1.8103 m 100 % 03/07/2015 11:22:00 AM 160 mmHg 90 mmHg 141 bpm 16 rpm 96.7 F 169 lbs 64 in 29.01 kg/m2 1.86 m2 100 % 02/08/2015 2:10:00 PM 120 mmHg [...] Reviewed 12/27/2016 12:00 AM CHORIONIC GONADOTROPIN ASSAY Returned 08/29/2014 12:00 AM SPECIMEN HANDLING OFFICE-LAB [...] Blood 3.6 07/24/2015 12:08 PM TEST NEGATIVE History Of Immunizations Not available. History of Past Illness Name Date of Onset Comments Anxiety Scoliosis of thoracic spine Depression 05/16/2014 Hepatitis C Abdominal pain 07/13/2015 Scoliosis Apr 12 2014 2:02PM Pain management [...] 11:42AM Pelvic pain Jan 03 2017 2:09PM Payers Insurance Name Company Name Plan Name Plan Number Policy Number Policy Group Number Start Date [id number] N/A History of Encounters Visit Date Visit Type Provider 12/18/2016 Office visit Ulices Winter APRN 07/30/2016 Office visit Ulices Winter APRN 11/03/2015 Office visit Ulices Winter APRN 10/04/2015 Office visit Ulices Winter APRN 09/07/2015 Office visit Ulices Winter APRN 07/27/2015 [facility] Mike Sheffield DO 07/24/2015 Office visit Ulices [...] 04/12/2014 Office visit Ulices Winter APRN 09/21/2011 [facility] Rama Watkins MD
--- OUTSIDE RECORDS SUMMARY | 2018-09-11 19:56 | XMS REPORT ---
Author Author Ulices Winter [facility] Address [address] [place], [place] [address] Care Team Providers Care Elevators Inspector Name Role Phone Ulices Winter PCP Allergies and Adverse Reactions Name Reaction Notes Ceftin Plan of Treatment Planned Activity Comments Planned Date Planned Time Plan/Goal X-RAY EXAM THORAC SPINE 2VWS 04/12/2014 12:00 AM Medications Active Name Start Date Estimated Completion Date SIG Comments Fetzima 40 mg oral capsule,extended release 24 hr 11/09/2014 02/07/2015 take 1 capsule (40 mg) by oral route once daily at approximately the same time each day for 30 days hydrocodone-acetaminophen 10-325 mg oral tablet 11/09/2014 take 1 tablet by oral route every 6 hours as needed for pain Xanax 1 mg oral tablet 11/09/2014 12/09/2014 take 1 tablet by oral route 3 times a day for 30 days Name Start Date [...] 2 times per day for 7 days Discontinued Name Start Date [...] of thoracic spine Active Depression Active 05/16/2014 Vital Signs Date Time BP-Sys(mm[Hg] BP-Tika(mm[Hg]) HR(bpm) RR(rpm) Temp WT HT HC BMI BSA BMI Percentile O2 Sat(%) 11/09/2014 1:47:00 PM 120 mmHg 82 mmHg [...] Description Comments Alcohol Current some day Tobacco Never smoker History of Procedures Date Ordered Description Order Status 08/29/2014 12:00 AM SPECIMEN HANDLING OFFICE-LAB Reviewed 08/29/2014 12:00 AM CYTOPATH C/V MANUAL Returned 08/29/2014 12:00 AM CHYLMD TRACH DNA AMP PROBE Returned 08/29/2014 12:00 AM N.GONORRHOEAE DNA AMP PROB Returned 08/29/2014 12:00 AM TISSUE EXAM FOR FUNGI Returned 08/29/2014 12:00 AM SMEAR WET MOUNT SALINE/INK Returned Results Summary Data and Description Results 02/22/2010 6:55 PM GLUCOSE 153.0 mg/dLSODIUM 133.0 mmol/LPOTASSIUM 3.50 mmol/LCHLORIDE 107.0 mmol/LCO2 18.0 mmol/LBUN 9.0 mg/dLCREATININE 0.70 mg/dLCALCIUM 8.70 mg/dLeGFR >60 mL/min/1.73 m2WBC 15.3 RBC 3.73 HGB 11.80 g/dLHCT 34.40 %MCV 92.0 fLMCH 31.60 pgMCHC 34.30 g/dLRDW CV 13.10 %MPV 10.70 fLPLT 213 %NEUT 73.70 %%LYMP 19.90 %%MONO 5.40 %%EOS 0.90 %%BASO 0.10 %#NEUT 11.28 #LYMP 3.05 #MONO 0.83 #EOS 0.14 #BASO 0.02 EOS 1.0 % 08/29/2014 10:04 AM WET PREP NO TRICH SEEN CLUE CELLS PRESENT History Of Immunizations Not available. History of Past Illness Name Date of Onset Comments Anxiety Scoliosis of thoracic spine Depression 05/16/2014 Scoliosis Apr 12 2014 2:02PM Pain management [...] of thoracic spine Nov 09 2014 1:48PM Payers Insurance Name Company Name Plan Name Plan Number Policy Number Policy Group Number Start Date Sherry Powell [id number] N/A History of Encounters Visit Date Visit Type Provider 11/09/2014 Office visit Ulices Winter APRN 10/14/2014 Office visit Ulices Winter APRN 10/05/2014 Office visit Ulices Winter APRN 08/29/2014 Office visit Ulices Winter APRN 08/05/2014 Office visit Ulices Winter CLAIM BENEFIT SPECIALIST 06/07/2014 Office visit Ulices Winter CLAIM BENEFIT SPECIALIST 05/06/2014 Office visit Ulices Winter APRN 04/12/2014 Office visit Ulices Winter CLAIM BENEFIT SPECIALIST 09/21/2011 [facility] Rama Watkins MD
--- OUTSIDE RECORDS SUMMARY | 2018-09-11 19:56 | XMS REPORT ---
Author Author Ulices Winter [facility] Address [address] [facility] [address] [place], [place] [address] Care Team Providers Care Seismograph Operator Name Role Phone Ulices Winter PCP Allergies and Adverse Reactions Name Reaction Notes Ceftin Plan of Treatment Planned Activity Comments Planned Date Planned Time Plan/Goal X-RAY EXAM THORAC SPINE 2VWS 04/12/2014 12:00 AM Medications Active Name Start Date Estimated Completion Date SIG Comments Fetzima 40 mg oral capsule,extended release 24 hr 01/03/2015 04/03/2015 take 1 capsule (40 mg) by oral route once daily at approximately the same time each day for 30 days hydrocodone-acetaminophen 10-325 mg oral tablet 01/09/2015 take 1 tablet by oral route every 6 hours as needed for pain Xanax 1 mg oral tablet 01/09/2015 02/08/2015 take 1 tablet by oral route 3 [...] Anxiety Active Scoliosis of thoracic spine Active depression Active 05/16/2014 Vital Signs Date Time BP-Sys(mm[Hg] BP-Tika(mm[Hg]) HR(bpm) RR(rpm) Temp WT HT HC BMI BSA BMI Percentile O2 Sat(%) 01/09/2015 8:49:00 AM 132 mmHg 85 mmHg [...] Onset Comments Anxiety Scoliosis of thoracic spine depression 05/16/2014 Scoliosis Apr 12 2014 2:02PM Pain [...] of thoracic spine Jan 09 2015 8:51AM Payers Insurance Name Company Name Plan Name Plan Number Policy Number Policy Group Number Start Date Sherry Powell [id number] N/A History of Encounters Visit Date Visit Type Provider 01/09/2015 Office visit Ulices Winter APRN 12/02/2014 Office visit Ulices Winter APRN 11/09/2014 Office visit Ulices Winter APRN 10/14/2014 Office visit Ulices Winter APRN 10/05/2014 Office visit Ulices Winter APRN 08/29/2014 Office visit Ulices Winter APRN 08/05/2014 Office visit Ulices Winter APRN 06/07/2014 Office visit Ulices Winter APRN 05/06/2014 Office visit Ulices Winter APRN 04/12/2014 Office visit Ulices Winter APRN 09/21/2011 [facility] Rama Watkins MD
--- OUTSIDE RECORDS SUMMARY | 2018-09-11 19:57 | XMS REPORT ---
Author Ulices Baptiste [facility] Address [address] [place], [place] [address] Care Team Providers Care Pulpwood Cutter Name Role Phone Ulices Winter PCP Allergies and Adverse Reactions Name Reaction Notes Ceftin Latex Plan of Treatment Planned Activity Comments Planned Date Planned Time Plan/Goal CBC W/ AUTO DIFF (RFLX MAN DIFF IF IND). 07/30/2016 12:00 AM CMP 07/30/2016 12:00 AM SED RATE 07/30/2016 12:00 AM CRP 07/30/2016 12:00 AM Medications Active Name Start Date Estimated Completion Date SIG Comments Fetzima 40 mg oral capsule,extended release 24 hr 07/30/2016 10/28/2016 take 1 capsule (40 mg) by oral route once daily at approximately the same time each day for 30 days hydrocodone-acetaminophen 10-325 mg oral tablet 07/30/2016 take 1 tablet by oral route every 6 hours as needed for pain Klonopin 1 mg oral tablet 07/30/2016 08/29/2016 take 1 tablet (1 mg) by oral route 3 times per day for 30 days Ventolin HFA 90 mcg/actuation inhalation HFA aerosol inhaler 07/30/2016 inhale 1 - 2 puffs (90 - 180 mcg) by inhalation route every 4-6 hours as needed Name Start Date Expiration Date SIG Comments [...] each nostril by intranasal route once daily Discontinued Name Start Date Discontinued Date SIG [...] HC BMI BSA BMI Percentile O2 Sat(%) 07/30/2016 9:18:00 AM 110 mmHg 70 mmHg [...] rpm 97.9 F 169 lbs 64 in 29.0085 kg/m 1.8605 m 100 % 01/09/2015 8:49:00 AM 132 mmHg [...] 07/24/2015 12:00 AM CHORIONIC GONADOTROPIN ASSAY Reviewed 08/29/2014 12:00 AM SPECIMEN HANDLING OFFICE-LAB Reviewed 08/29/2014 12:00 AM CYTOPATH C/V MANUAL Reviewed 08/29/2014 12:00 AM CHYLMD TRACH DNA AMP PROBE Reviewed 08/29/2014 12:00 AM N.GONORRHOEAE DNA AMP PROB Reviewed 08/29/2014 12:00 AM TISSUE EXAM FOR FUNGI Reviewed 08/29/2014 12:00 AM SMEAR WET MOUNT SALINE/INK Reviewed Results Summary Date and Description Results 02/22/2010 6:55 PM GLUCOSE 153.0 mg/dLSODIUM 133.0 mmol/LPOTASSIUM 3.50 mmol/LCHLORIDE 107.0 mmol/LCO2 18.0 mmol/LBUN 9.0 mg/dLCREATININE 0.70 mg/dLCALCIUM 8.70 mg/dLAGE 19 GFR NonAA 106 GFR AA 128 eGFR >60 mL/min/1.73 m2eGFR AA* >60 WBC 15.3 RBC 3.73 HGB 11.80 g/dLHCT 34.40 %MCV 92.0 fLMCH 31.60 pgMCHC 34.30 g/dLRDW SD 44 RDW CV 13.10 %MPV 10.70 fLPLT 213 NRBC# 0.00 NRBC% 0.0 %NEUT 73.70 %%LYMP 19.90 %%MONO 5.40 %%EOS 0.90 %%BASO 0.10 %#NEUT 11.28 #LYMP 3.05 #MONO 0.83 #EOS 0.14 #BASO 0.02 MANUAL DIFF SEE BELOW SEGS 62 BANDS 4 LYMPHS 29 MONOS 4 EOS 1.0 %RBC MORPH 1+ ANISO 08/29/2014 10:04 AM WET PREP NO TRICH [...] C Virus Ab >11.0 Mercury, Blood 3.6 07/05/2015 8:30 AM Hepatitis C Quantitation [id number] HCV log10 6.133 07/24/2015 12:08 PM TEST NEGATIVE 07/27/2015 8:20 AM TEST UR NEGATIVE History Of Immunizations Not available. History [...] of thoracic spine Jul 30 2016 9:22AM Payers Insurance Name Company Name Plan Name Plan Number Policy Number Policy Group Number Start Date [facility] [id number] N/A History of Encounters Visit Date Visit Type Provider 07/30/2016 Office visit Ulices Winter APRN 11/03/2015 Office visit Ulices Winter APRN 10/04/2015 Office visit Ulices Winter APRN 09/07/2015 Office visit Ulices Winter APRN 07/27/2015 [facility] Mike Sheffield DO 07/24/2015 Office visit [...] Winter APRN 10/14/2014 Office visit Ulices Winter GEOMATICS PROFESSOR 10/05/2014 Office visit Ulices Winter APRN 08/29/2014 Office visit Ulices Winter APRN 08/05/2014 Office visit Ulices Winter APRN 06/07/2014 Office visit Ulices Winter APRN 05/06/2014 Office visit Ulices Winter APRN 04/12/2014 Office visit Ulices Winter APRN 09/21/2011 [facility] Rama Watkins MD
--- OUTSIDE RECORDS SUMMARY | 2018-09-11 19:57 | XMS REPORT ---
Author Ulices Baptiste [facility] Address [address] [place], [place] [address] Care Team Providers Care Sales Account Executive Name Role Phone Ulices Winter PCP Allergies and Adverse Reactions Name Reaction Notes Ceftin Latex Plan of Treatment Planned Activity Comments Planned Date Planned Time Plan/Goal HEPATITIS C REVRS [id number] 02/08/2015 12:00 AM COMPLETE CBC W/AUTO DIFF WBC 09/07/2015 12:00 AM COMPREHEN METABOLIC PANEL 09/07/2015 12:00 AM ASSAY OF AMYLASE 09/07/2015 12:00 AM ASSAY OF LIPASE 09/07/2015 12:00 AM X-RAY EXAM THORAC SPINE 2VWS 04/12/2014 12:00 AM Medications Active Name Start Date Estimated Completion Date SIG Comments Fetzima 40 mg oral capsule,extended release 24 hr 09/07/2015 12/06/2015 take 1 capsule (40 mg) by oral route once daily at approximately the same time each day for 30 days hydrocodone-acetaminophen 10-325 mg oral tablet 09/07/2015 take 1 tablet by oral route every 6 hours as needed for pain Xanax 1 mg oral tablet 09/07/2015 10/07/2015 take 1 tablet by oral route 3 [...] once a day (at bedtime) as needed Discontinued Name Start Date Discontinued Date SIG [...] Depression Active 05/16/2014 Abdominal Pain Active 07/13/2015 Vital Signs Date Time BP-Sys(mm[Hg] BP-Tika(mm[Hg]) HR(bpm) RR(rpm) Temp WT HT HC BMI BSA BMI Percentile O2 Sat(%) 09/07/2015 3:55:00 PM 130 mmHg 86 mmHg [...] AM COMPLETE CBC W/AUTO DIFF WBC Returned 01/25/2015 12:00 AM COMPREHEN METABOLIC PANEL Returned 01/25/2015 12:00 AM BORDETELLA ANTIBODY Returned 01/25/2015 12:00 AM ASSAY OF MERCURY Returned 01/25/2015 12:00 AM ASSAY OF FREE THYROXINE Returned 01/25/2015 12:00 AM ASSAY THYROID STIM HORMONE Returned 01/25/2015 12:00 AM ASSAY OF AMYLASE Returned 01/25/2015 12:00 AM ASSAY OF LIPASE Returned 06/29/2015 12:00 AM ECHO EXAM OF ABDOMEN Returned 07/24/2015 12:00 AM CHORIONIC GONADOTROPIN ASSAY Returned 08/29/2014 [...] %MCV 93.0 fLMCH 32.80 pgMCHC 35.10 g/dLRDW CV 12.10 %MPV 10.50 fLPLT 274 %NEUT 64.90 %%LYMP 28.50 %%MONO 5.90 %%EOS 0.40 %%BASO 0.30 %#NEUT 4.77 #LYMP 2.09 #MONO 0.43 #EOS 0.03 #BASO 0.02 AMYLASE 39 IU/LLIPASE 20.0 U/LGLUCOSE 102.0 mg/dLSODIUM 140.0 mmol/LPOTASSIUM 3.80 mmol/LCHLORIDE 105.0 mmol/LCO2 25.0 mmol/LBUN 4.0 mg/dLCREATININE 0.70 mg/dLSGOT/AST 36.0 IU/LSGPT/ALT 84.0 IU/LALK PHOS 84.0 IU/LTOTAL PROTEIN 8.20 g/dLALBUMIN 4.70 g/dLTOTAL BILI 0.40 mg/dLCALCIUM 9.90 mg/dLeGFR >60 mL/min/1.73mTSH 1.380 uIU/mLHep A Ab, IgM Negative HBsAg Screen Negative Hep B Core Ab, IgM Negative Hep C Virus Ab >11.0 07/27/2015 8:20 AM TEST UR NEGATIVE History Of Immunizations Not available. History of Past Illness Name Date of Onset Comments Anxiety Scoliosis of thoracic spine Depression 05/16/2014 Hepatitis C Abdominal Pain 07/13/2015 Scoliosis Apr 12 2014 2:02PM Pain [...] 2015 4:02PM Anxiety Sep 07 2015 4:02PM Payers Insurance Name Company Name Plan Name Plan Number Policy Number Policy Group Number Start Date [id number] N/A History of Encounters Visit Date Visit Type Provider 09/07/2015 Office visit Ulices Winter APRN 07/27/2015 [facility] Mike Sheffield DO 07/24/2015 Office visit Ulices Winter APRN 07/11/2015 Office visit Mike Sheffield DO 06/29/2015 Office visit Ulices Winter DRILL RIG OPERATOR 04/28/2015 Office visit Ulices Winter APRN 04/04/2015 [...] 04/12/2014 Office visit Ulices Winter APRN 09/21/2011 [facility] Rama Watkins MD
--- OUTSIDE RECORDS SUMMARY | 2018-09-11 19:58 | XMS REPORT ---
Author Author [facility] Organization [facility] Address [address] [place], [place] [phone] Care Team Providers Care Ocean Clam Boat Captain Name Role Phone PCP Unavailable Allergies and Adverse Reactions Name Reaction Notes Ceftin Plan of Treatment Planned Activity Comments Planned Date Planned Time Plan/Goal X-RAY EXAM THORAC SPINE 2VWS 04/12/2014 12:00 AM Medications Active Name Start Date Estimated Completion Date SIG Comments Fetzima oral capsule,extended release 24 hr 40 mg 08/05/2014 11/03/2014 take 1 capsule (40 mg) by oral route once daily at approximately the same time each day for 30 days Xanax oral tablet 1 mg 08/05/2014 take 1 tablet by oral route 2 times a day hydrocodone-acetaminophen oral tablet 10-325 mg 08/05/2014 take 1 tablet by oral route 2 times a day Name Start Date Expiration Date SIG Comments hydrocodone-acetaminophen oral tablet 10-325 mg 06/07/2014 take 1 tablet by oral route 2 times a day Xanax oral tablet 1 mg 06/07/2014 take 1 tablet by oral route 2 times a day Vistaril oral capsule 50 mg 07/05/2014 08/04/2014 take 1 capsule by oral route 3 times a day as needed for 30 days Discontinued Name Start Date Discontinued Date SIG Comments Prozac oral capsule 20 mg 04/12/2014 05/06/2014 take 1 capsule (20 mg) by oral route once daily for 30 days Depakote ER oral tablet extended release 24 hr 250 mg 07/05/2014 08/05/2014 take 1 tablet by oral route daily for 30 days Problem List Description Status Onset Anxiety Active Scoliosis of thoracic spine Active Depression Active 05/16/2014 Vital Signs Date Time BP-Sys(mm[Hg] BP-Tika(mm[Hg]) HR(bpm) RR(rpm) Temp WT HT HC BMI BSA BMI Percentile O2 Sat(%) 08/05/2014 9:48:00 AM 130 mmHg 80 mmHg [...] % Social History Name Description Comments Alcohol Tobacco Never smoker History of Procedures Not available. Results Summary Data and Description Results 02/22/2010 [...] #EOS 0.14 #BASO 0.02 EOS 1.0 % History Of Immunizations Not available. History of [...] of thoracic spine Aug 05 2014 9:50AM Payers Insurance Name Company Name Plan Name Plan Number Policy Number Policy Group Number Start Date [id number] N/A History of Encounters Visit Date Visit Type Provider 08/05/2014 Office visit Ulices Winter APRN 06/07/2014 Office visit Ulices Winter APRN 05/06/2014 Office visit Ulices Winter APRN 04/12/2014 Office visit Ulices iWnter APRN 09/21/2011 [facility] Rama Watkins MD
--- OUTSIDE RECORDS SUMMARY | 2018-09-11 19:58 | XMS REPORT ---
Author Author Ulices Winter [facility] Address [address] [place], [place] [phone] Care Team Providers Care Combatant Diver Officer Name Role Phone Ulices Winter PCP Ulices Winter PreferredProvider Allergies and Adverse Reactions Name Reaction Notes Ceftin fever Latex burning Plan of Treatment Not available. Medications Active Name Start Date Estimated Completion Date SIG Comments Ventolin HFA 90 mcg/actuation inhalation HFA aerosol inhaler 07/30/2016 inhale 1 - 2 puffs (90 - 180 mcg) by inhalation route every 4-6 hours as needed NuvaRing 0.12-0.015 mg/24 hr vaginal ring 07/18/2017 insert 1 vaginal ring by vaginal route once a month leave in place for 3 weeks, remove for 1 week hydrocodone-acetaminophen 10-325 mg oral tablet 07/30/2017 take 1 tablet by oral route every 6 hours as needed for pain Klonopin 1 mg oral tablet 07/30/2017 08/29/2017 take 1 tablet (1 mg) by oral [...] route every 12 hours for 7 days Problem List Description Status Onset Anxiety Active Scoliosis of thoracic spine Active Depression Active 05/16/2014 Abdominal pain Active 07/13/2015 Hepatitis C Active Vital Signs Date Time BP-Sys(mm[Hg] BP-Tika(mm[Hg]) HR(bpm) RR(rpm) Temp WT HT HC BMI BSA BMI Percentile O2 Sat(%) 07/30/2017 3:51:00 PM 130 mmHg 80 mmHg [...] Hepatitis C Abdominal pain 07/13/2015 Anemia Asthma Scoliosis Apr 12 2014 2:02PM Pain management [...] unspecified scoliosis type Jul 30 2017 3:52PM Payers Insurance Name Company Name Plan Name Plan Number Policy Number Policy Group Number Start Date Sherry Powell [id number] N/A History of Encounters Visit Date Visit Type Provider 07/30/2017 Office visit Ulices Winter APRN 07/18/[address] Dora Khan MD 03/30/2017 Surgery Parker Rutherfrod MD 03/29/2017 Office visit Roman Dubois PA-C 12/18/2016 Office visit Ulices Winter APRN 10/24/2016 Hospital Yannick Painting MD 07/30/2016 Office visit Ulices Winter APRN 11/03/2015 Office visit Ulices Winter APRN 10/04/2015 Office visit Ulices Winter APRN 09/07/2015 Office visit Ulices Winter APRN 07/27/2015 [facility] Mike Sheffield DO 07/24/2015 Office visit Ulices [...] 04/12/2014 Office visit Ulices Winter APRN 09/21/2011 [facility] Rama Watkins MD
--- OUTSIDE RECORDS SUMMARY | 2018-09-11 19:59 | XMS REPORT ---
Author Ulices Baptiste [facility] Address [address] [place], [place] [phone] Care Team Providers Care Carbon Brushes Assembler Name Role Phone Ulices Winter PCP Allergies [...] HC BMI BSA BMI Percentile O2 Sat(%) 01/25/2015 1:47:00 PM 140 mmHg 72 mmHg [...] 01/25/2015 12:00 AM ASSAY OF LIPASE Returned 08/29/2014 12:00 AM SPECIMEN HANDLING OFFICE-LAB [...] IgM Negative Hep C Virus Ab >11.0 History Of Immunizations Not available. History of [...] Generalized abdominal pain Jan 25 2015 1:50PM Payers Insurance Name Company Name Plan Name Plan Number Policy Number Policy Group Number Start Date Sherry Powell [id number] N/A History of Encounters Visit Date Visit Type Provider 01/25/2015 Office visit Ulices Winter APRN 01/09/2015 [...] 04/12/2014 Office visit Ulices Winter APRN 09/21/2011 [facility] Rama Watkins MD
--- OUTSIDE RECORDS SUMMARY | 2018-09-11 19:59 | XMS REPORT ---
Author Ulices Baptiste [facility] Address [address] [place], [place] [phone] Care Team Providers Care Funeral Pre Arrangement Specialist Name Role Phone Ulices Winter PCP Allergies [...] Start Date Estimated Completion Date SIG Comments Klonopin 1 mg oral tablet 11/03/2015 12/03/2015 take 1 tablet (1 mg) by oral route 3 times per day for 30 days Fetzima 40 mg oral capsule,extended release 24 hr 11/03/2015 02/01/2016 take 1 capsule (40 mg) by oral route once daily at approximately the same time each day for 30 days hydrocodone-acetaminophen 10-325 mg oral tablet 11/03/2015 take 1 tablet by oral route every 6 hours as needed for pain Name Start Date Expiration Date SIG Comments [...] 3 times a day for 30 days Discontinued Name Start [...] Depression Active 05/16/2014 Abdominal pain Active 07/13/2015 Vital Signs Date Time BP-Sys(mm[Hg] BP-Tika(mm[Hg]) HR(bpm) RR(rpm) Temp WT HT HC BMI BSA BMI Percentile O2 Sat(%) 11/03/2015 11:35:00 AM 122 mmHg 88 mmHg [...] of thoracic spine Nov 03 2015 11:36AM Payers Insurance Name Company Name Plan Name Plan Number Policy Number Policy Group Number Start Date [id number] N/A History of Encounters Visit Date Visit Type Provider 11/03/2015 Office visit Ulices Winter APRN 10/04/2015 Office visit Ulices Winter APRN 09/07/2015 Office visit Ulices Winter APRN 07/27/2015 [facility] Mike Sheffield DO 07/24/2015 Office visit Ulices Winter APRN 07/11/2015 Office visit Mike Sheffield DO 06/29/2015 Office visit Ulices Winter APRN 04/28/2015 Office visit Ulices Winter APRN 04/04/2015 Office visit Ulices Winter RN CARDIOLOGY 03/07/2015 Office visit Ulices Winter RN CARDIOLOGY 02/08/2015 Office visit Ulices Winter RN CARDIOLOGY 01/25/2015 Office visit Ulices Winter APRN 01/09/2015 Office visit Ulices Winter APRN 12/02/2014 Office visit Ulices Winter RN CARDIOLOGY 11/09/2014 Office visit Ulices Winter RN CARDIOLOGY 10/14/2014 Office visit Ulices Winter RN CARDIOLOGY 10/05/2014 Office visit Ulices Winter RN CARDIOLOGY 08/29/2014 Office visit Ulices Winter APRN 08/05/2014 Office visit Ulices Winter APRN 06/07/2014 Office visit Ulices Winter RN CARDIOLOGY 05/06/2014 Office visit Ulices Winter RN CARDIOLOGY 04/12/2014 Office visit Ulices Winter APRN 09/21/2011 [facility] Rama Watkins MD
--- OUTSIDE RECORDS SUMMARY | 2018-09-11 20:00 | XMS REPORT ---
Author Author [facility] Organization [facility] Address [address] [place], [place] [phone] Care Team Providers Care Social Media Director Name Role Phone PCP Unavailable Allergies and [...] 30 days Xanax oral tablet 1 mg 10/05/2014 take 1 tablet by oral route 2 times a day hydrocodone-acetaminophen 10-325 mg oral tablet 10/14/2014 take 1 tablet by oral route every [...] day as needed for 30 days azithromycin oral tablet 250 mg 08/29/2014 09/03/2014 take 2 tablets (500 mg) by oral route once daily for 1 day then 1 tablet (250 mg) by oral route once daily for 4 days Flagyl oral tablet 500 mg 09/19/2014 09/26/2014 take 1 tablet (500 mg) [...] HC BMI BSA BMI Percentile O2 Sat(%) 10/14/2014 9:51:00 AM 120 mmHg 80 mmHg [...] of Procedures Date Ordered Description Order Status 04/12/2014 12:00 AM X-RAY EXAM THORAC SPINE 2VWS Ordered 08/29/2014 12:00 AM SPECIMEN HANDLING OFFICE-LAB Reviewed [...] of thoracic spine Oct 14 2014 9:52AM Payers Insurance Name Company Name Plan Name Plan Number Policy Number Policy Group Number Start Date Sherry Powell [id number] N/A History of Encounters Visit Date Visit Type Provider 10/14/2014 Office visit Ulices Winter APRN 10/05/2014 Office visit Ulices Winter APRN 08/29/2014 Office visit Ulices Winter APRN 08/05/2014 Office visit Ulices Winter CLEAN OUT DRILLER 06/07/2014 Office visit Ulices Winter CLEAN OUT DRILLER 05/06/2014 Office visit Ulices Winter APRN 04/12/2014 Office visit Ulices Winter APRN 09/21/2011 [facility] Rama Watkins MD
--- OUTSIDE RECORDS SUMMARY | 2018-09-11 20:00 | XMS REPORT ---
Author Ulices Baptiste [facility] Address [address] [place], [place] [phone] Care Team Providers Care Antenna Installer Name Role Phone Ulices Winter PCP Allergies and Adverse Reactions Name Reaction Notes Ceftin Plan of Treatment Planned Activity Comments Planned Date Planned Time Plan/Goal HEPATITIS C REVRS [id number] 02/08/2015 12:00 AM X-RAY EXAM THORAC SPINE 2VWS 04/12/2014 12:00 AM Medications Active Name Start Date Estimated Completion Date SIG Comments Ambien 5 mg oral tablet 03/20/2015 take 1 tablet by oral route once a day (at bedtime) as needed Fetzima 40 mg oral capsule,extended release 24 hr 04/04/2015 07/03/2015 take 1 capsule (40 mg) by oral route once daily at approximately the same time each day for 30 days hydrocodone-acetaminophen 10-325 mg oral tablet 04/04/2015 take 1 tablet by oral route every 6 hours as needed for pain Xanax 1 mg oral tablet 04/04/2015 05/04/2015 take 1 tablet by oral route 3 [...] HC BMI BSA BMI Percentile O2 Sat(%) 04/04/2015 10:16:00 AM 120 mmHg 70 mmHg [...] coma, unspecified chronicity Apr 04 2015 10:18AM Payers Insurance Name Company Name Plan Name Plan Number Policy Number Policy Group Number Start Date Sherry Powell [id number] N/A History of Encounters Visit Date Visit Type Provider 04/04/2015 Office visit Ulices Winter APRN 03/07/2015 [...] 04/12/2014 Office visit Ulices Winter APRN 09/21/2011 [facility] Rama Watkins MD
--- OUTSIDE RECORDS SUMMARY | 2018-09-11 20:01 | XMS REPORT ---
Author Ulices Baptiste [facility] Address [address] [place], [place] [phone] Care Team Providers Care Coo & [employer] Founder Name Role Phone Ulices Winter PCP Allergies [...] same time each day for 30 days Ventolin HFA 90 mcg/actuation inhalation HFA aerosol inhaler 07/30/2016 inhale 1 - 2 puffs (90 - 180 mcg) by inhalation route every 4-6 hours as needed hydrocodone-acetaminophen 10-325 mg oral tablet 08/29/2016 take 1 tablet by oral route every 6 hours as needed for pain Klonopin 1 mg oral tablet 08/29/2016 09/28/2016 take 1 tablet (1 mg) by oral [...] 3.6 07/05/2015 8:30 AM Hepatitis C Quantitation [id number] 6.133 07/24/2015 12:08 PM TEST [...] Policy Number Policy Group Number Start Date [facility] [id number] N/A History of Encounters Visit Date Visit Type Provider 07/30/2016 Office visit Ulices Winter APRN 11/03/2015 Office visit Ulices Winter APRN 10/04/2015 Office visit Ulices Winter APRN 09/07/2015 Office visit Ulices Winter APRN 07/27/2015 [facility] Mike Sheffield DO 07/24/2015 Office visit [...] Winter APRN 10/14/2014 Office visit Ulices Winter EDUCATIONAL ASSISTANT TEACHER 10/05/2014 Office visit Ulices Winter APRN 08/29/2014 Office visit Ulices Winter APRN 08/05/2014 Office visit Ulices Winter APRN 06/07/2014 Office visit Ulices Winter APRN 05/06/2014 Office visit Ulices Winter APRN 04/12/2014 Office visit Ulices Winter APRN 09/21/2011 [facility] Rama Watkins MD
--- OUTSIDE RECORDS SUMMARY | 2018-09-11 20:02 | XMS REPORT ---
Author Author Dora Khan [facility] Address [address] [place], [place] [phone] Care Team Providers Care Pipeman Name Role Phone Dora Khan PCP Ulices Winter PreferredProvider Allergies and Adverse Reactions Name Reaction Notes Ceftin fever Latex burning Plan of Treatment Planned Activity Comments Planned Date Planned Time Plan/Goal CHLAMYDIA TRACHOMATIS AMP PROBE 07/18/2017 12:00 AM NEISSERIA GONORRHOEAE AMP PROBE 07/18/2017 12:00 AM TRICHOMONAS AMPLIFIED 07/18/2017 12:00 AM TRICHOMONAS AMPLIFIED 07/18/2017 12:00 AM Medications Active Name Start Date Estimated Completion Date SIG Comments Ventolin HFA 90 mcg/actuation inhalation HFA aerosol inhaler 07/30/2016 inhale 1 - 2 puffs (90 - 180 mcg) by inhalation route every 4-6 hours as needed hydrocodone-acetaminophen 10-325 mg oral tablet 06/30/2017 take 1 tablet by oral route every 6 hours as needed for pain Klonopin 1 mg oral tablet 06/30/2017 07/30/2017 take 1 tablet (1 mg) by oral route 3 times per day for 30 days NuvaRing 0.12-0.015 mg/24 hr vaginal ring 07/18/2017 insert 1 vaginal ring by vaginal route once a month leave in place for 3 weeks, remove for 1 week Name Start Date Expiration Date SIG Comments [...] HC BMI BSA BMI Percentile O2 Sat(%) 07/18/2017 10:22:00 AM 135 mmHg 68 mmHg [...] Reviewed 07/18/2017 10:42 AM URINE TEST Reviewed 08/29/2014 12:00 AM SPECIMEN HANDLING [...] device) in place Jul 18 2017 10:31AM Payers Insurance Name Company Name Plan Name Plan Number Policy Number Policy Group Number Start Date [id number] N/A History of Encounters Visit Date Visit Type Provider 07/18/[address] Dora Khan MD 03/30/2017 Surgery Parker Rutherford MD 03/29/2017 Office visit Roman Dubois PA-C 12/18/2016 Office visit Ulices Winter PRODUCE PRODUCTION TEAM MEMBER 10/24/2016 Hospital Yannick Painting MD 07/30/2016 Office visit Ulices Winter PRODUCE PRODUCTION TEAM MEMBER 11/03/2015 Office visit Ulices Winter PRODUCE PRODUCTION TEAM MEMBER 10/04/2015 Office visit Ulices Winter PRODUCE PRODUCTION TEAM MEMBER 09/07/2015 Office visit Ulices Jonesran PRODUCE PRODUCTION TEAM MEMBER 07/27/2015 Hospital Mike Sheffield DO 07/24/2015 Office visit Ulices Jonesran PRODUCE PRODUCTION TEAM MEMBER 07/11/2015 Office visit Mike Bouman DO 06/29/2015 Office visit Ulices Winter PRODUCE PRODUCTION TEAM MEMBER 04/28/2015 Office visit Ulices Winter PRODUCE PRODUCTION TEAM MEMBER 04/04/2015 Office visit Ulices Winter PRODUCE PRODUCTION TEAM MEMBER 03/07/2015 Office visit Ulices Winter PRODUCE PRODUCTION TEAM MEMBER 02/08/2015 Office visit Ulices Winter PRODUCE PRODUCTION TEAM MEMBER 01/25/2015 Office visit Ulices Winter PRODUCE PRODUCTION TEAM MEMBER 01/09/2015 Office visit Ulices Winter PRODUCE PRODUCTION TEAM MEMBER 12/02/2014 Office visit Ulices Winter PRODUCE PRODUCTION TEAM MEMBER 11/09/2014 Office visit Ulices Winter PRODUCE PRODUCTION TEAM MEMBER 10/14/2014 Office visit Ulices Winter PRODUCE PRODUCTION TEAM MEMBER 10/05/2014 Office visit Ulices Winter PRODUCE PRODUCTION TEAM MEMBER 08/29/2014 Office visit Ulices Winter PRODUCE PRODUCTION TEAM MEMBER 08/05/2014 Office visit Ulices Winter PRODUCE PRODUCTION TEAM MEMBER 06/07/2014 Office visit Ulices Winter PRODUCE PRODUCTION TEAM MEMBER 05/06/2014 Office visit Ulices Winter PRODUCE PRODUCTION TEAM MEMBER 04/12/2014 Office visit Ulices Winter PRODUCE PRODUCTION TEAM MEMBER 09/21/2011 Hospital Rama Watkins MD
--- OUTSIDE RECORDS SUMMARY | 2018-09-11 20:02 | XMS REPORT ---
Author Author Ulices Winter [facility] Address [address] [place], [place] [phone] Care Team Providers Care Contact Center Representative Name Role Phone Ulices Winter PCP Allergies and Adverse Reactions Name Reaction Notes Ceftin Latex Plan of Treatment Not available. Medications Active [...] unspecified scoliosis type Dec 18 2016 10:29AM Payers Insurance Name Company Name Plan Name Plan Number Policy Number Policy Group Number Start Date Sherry Powell [id number] N/A History of Encounters Visit Date Visit [...] Winter APRN 04/04/2015 Office visit Ulices Winter OIL BURNER INSTALLER 03/07/2015 Office visit Ulices Winter OIL BURNER INSTALLER 02/08/2015 Office visit Ulices Winter APRN 01/25/2015 Office visit Ulices Winter APRN 01/09/2015 Office visit Ulices Winter APRN 12/02/2014 Office visit Ulices Winter APRN 11/09/2014 Office visit Ulices Winter APRN 10/14/2014 Office visit Ulices Winter APRN 10/05/2014 Office visit Ulices Winter OIL BURNER INSTALLER 08/29/2014 Office visit Ulices Winter APRN 08/05/2014 Office visit Ulices Winter APRN 06/07/2014 Office visit Ulcies Winter APRN 05/06/2014 Office visit Ulices Winter APRN 04/12/2014 Office visit Uliecs Winter APRN 09/21/2011 [facility] Rama Watkins MD
--- OUTSIDE RECORDS SUMMARY | 2018-09-11 20:03 | XMS REPORT ---
Author Ulices Baptiste [facility] Address [address] [place], [place] [phone] Care Team Providers Care Precision Layout Worker Name Role Phone Ulices Winter PCP Allergies [...] 30 days hydrocodone-acetaminophen 10-325 mg oral tablet 10/04/2015 take 1 tablet by oral route every 6 hours as needed for pain Xanax 1 mg oral tablet 10/04/2015 11/03/2015 [...] Active 07/13/2015 Vital Signs Date Time BP-Sys(mm[Hg] BP-Tiak(mm[Hg]) HR(bpm) RR(rpm) Temp WT HT HC BMI BSA BMI Percentile O2 Sat(%) 10/04/2015 1:07:00 PM 130 mmHg 70 mmHg [...] of thoracic spine Oct 04 2015 1:09PM Payers Insurance Name Company Name Plan Name Plan Number Policy Number Policy Group Number Start Date [facility] [id number] N/A History of Encounters Visit Date Visit Type Provider 10/04/2015 Office visit Ulices Winter APRN 09/07/2015 Office visit Ulices Winter APRN 07/27/2015 [facility] Mike Sheffield DO 07/24/2015 Office visit Ulices Winter APRN 07/11/2015 Office visit Mike Sheffield DO 06/29/2015 Office visit Ulices Winter APRN 04/28/2015 Office visit Ulices Winter APRN 04/04/2015 Office visit Ulices Winter APRN 03/07/2015 Office visit Ulices Winter STRIP TANK TENDER 02/08/2015 Office visit Ulices Winter STRIP TANK TENDER 01/25/2015 Office visit Ulices Winter APRN 01/09/2015 Office visit Ulices Winter APRN 12/02/2014 Office visit Ulices Winter STRIP TANK TENDER 11/09/2014 Office visit Ulices Winter STRIP TANK TENDER 10/14/2014 Office visit Ulices Winter STRIP TANK TENDER 10/05/2014 Office visit Ulices Winter STRIP TANK TENDER 08/29/2014 Office visit Ulices Winter STRIP TANK TENDER 08/05/2014 Office visit Ulices Winter STRIP TANK TENDER 06/07/2014 Office visit Ulices Winter STRIP TANK TENDER 05/06/2014 Office visit Ulices Winter STRIP TANK TENDER 04/12/2014 Office visit Ulices Winter STRIP TANK TENDER 09/21/2011 [facility] Rama Watkins MD
--- OUTSIDE RECORDS SUMMARY | 2018-09-11 20:03 | XMS REPORT ---
Author Author Ulices Winter [facility] Address [address] [place], [place] [phone] Care Team Providers Care Outreach Librarian Name Role Phone Ulices Winter PCP Allergies and Adverse Reactions Name Reaction Notes Ceftin Latex Plan of Treatment Planned Activity Comments Planned Date Planned Time Plan/Goal HCG detection ser 12/27/2016 12:00 AM Medications Active Name Start Date [...] 2016 10:29AM Amenorrhea Dec 27 2016 11:42AM Payers Insurance Name Company Name Plan Name Plan Number Policy Number Policy Group Number Start Date Sherry Powell [id number] N/A History of Encounters Visit Date Visit Type Provider 12/18/2016 Office visit Ulices Winter APRN 07/30/2016 Office visit Ulices Winter APRN 11/03/2015 Office visit Ulices Winter APRN 10/04/2015 Office visit Ulices Winter APRN 09/07/2015 Office visit Ulices Winter APRN 07/27/2015 [facility] Mike Sheffield DO 07/24/2015 Office visit [...] 04/12/2014 Office visit Ulices Winter APRN 09/21/2011 [facility] Rama Watkins MD
--- OUTSIDE RECORDS SUMMARY | 2018-09-11 20:04 | XMS REPORT ---
Author Author [facility] Organization [facility] Address [address] [place], [place] [phone] Care Team Providers Care Senior It Business Analyst Name Role Phone PCP Unavailable Allergies and Adverse Reactions Name Reaction Notes Ceftin Plan of Treatment Planned Activity Comments Planned Date Planned Time Plan/Goal X-RAY EXAM THORAC SPINE 2VWS 04/12/2014 12:00 AM Medications Active Name Start Date Estimated Completion Date SIG Comments Depakote ER oral tablet extended release 24 hr 250 mg 07/05/2014 08/04/2014 take 1 tablet by oral route daily for 30 days Fetzima oral capsule,extended release 24 hr 40 mg 07/05/2014 08/04/2014 take 1 capsule (40 mg) by oral route once daily at approximately the same time each day for 30 days Vistaril oral capsule 50 mg 07/05/2014 08/04/2014 take 1 capsule by oral route 3 times a day as needed for 30 days Name Start Date Expiration Date SIG Comments hydrocodone-acetaminophen oral tablet 10-325 mg 06/07/2014 take 1 tablet by oral route 2 times a day Xanax oral tablet 1 mg 06/07/2014 take 1 tablet by oral route 2 times a day Discontinued Name Start Date Discontinued Date SIG Comments Prozac oral capsule 20 mg 04/12/2014 05/06/2014 take 1 capsule (20 mg) by oral route once daily for 30 days Problem List Description Status Onset Anxiety Active Scoliosis of thoracic spine Active Depression Active 05/16/2014 Vital Signs Date Time BP-Sys(mm[Hg] BP-Tika(mm[Hg]) HR(bpm) RR(rpm) Temp WT HT HC BMI BSA BMI Percentile O2 Sat(%) 06/07/2014 2:41:00 PM 145 mmHg 100 mmHg [...] of thoracic spine Jun 07 2014 2:42PM Payers Insurance Name Company Name Plan Name Plan Number Policy Number Policy Group Number Start Date Sherry Powell [id number] N/A History of Encounters Visit Date Visit Type Provider 06/07/2014 Office visit Ulices Winter BATCH MAKER 05/06/2014 Office visit Ulices Winter BATCH MAKER 04/12/2014 Office visit Ulices Winter BATCH MAKER 09/21/2011 [facility] Rama Watkins MD
--- OUTSIDE RECORDS SUMMARY | 2018-09-11 20:04 | XMS REPORT ---
Author Author Ulices Winter [facility] Address [address] [place], [place] [id number] Care Team Providers Care Bead Trimmer Name Role Phone Ulices Winter PCP Allergies and Adverse Reactions Name Reaction Notes Ceftin Plan of Treatment Planned Activity Comments Planned Date Planned Time Plan/Goal HEPATITIS C REVRS [id number] 02/08/2015 12:00 AM ECHO EXAM OF ABDOMEN 06/29/2015 12:00 AM X-RAY EXAM THORAC SPINE 2VWS 04/12/2014 12:00 AM Medications Active Name Start Date Estimated Completion Date SIG Comments Fetzima 40 mg oral capsule,extended release 24 hr 05/30/2015 08/28/2015 take 1 capsule (40 mg) by oral route once daily at approximately the same time each day for 30 days hydrocodone-acetaminophen 10-325 mg oral tablet 06/29/2015 take 1 tablet by oral route every 6 hours as needed for pain Xanax 1 mg oral tablet 06/29/2015 07/29/2015 take 1 tablet by oral route 3 [...] HC BMI BSA BMI Percentile O2 Sat(%) 06/29/2015 3:03:00 PM 120 mmHg 80 mmHg [...] coma, unspecified chronicity Jun 29 2015 3:05PM Payers Insurance Name Company Name Plan Name Plan Number Policy Number Policy Group Number Start Date Sherry Powell [id number] N/A History of Encounters Visit Date Visit Type Provider 06/29/2015 Office visit Ulices Winter APRN 04/28/2015 Office visit Ulices Winter APRN 04/04/2015 Office visit Ulices Winter TRANSITION MGR RN 03/07/2015 Office visit Ulices Winter TRANSITION MGR RN 02/08/2015 Office visit Ulices Winter TRANSITION MGR RN 01/25/2015 Office visit Ulices Winter APRN 01/09/2015 Office visit Ulices Winter APRN 12/02/2014 Office visit Ulices Winter TRANSITION MGR RN 11/09/2014 Office visit Ulices Winter TRANSITION MGR RN 10/14/2014 Office visit Ulices Winter TRANSITION MGR RN 10/05/2014 Office visit Ulices Winter TRANSITION MGR RN 08/29/2014 Office visit Ulices Winter TRANSITION MGR RN 08/05/2014 Office visit Ulices Winter APRN 06/07/2014 Office visit Ulices Winter TRANSITION MGR RN 05/06/2014 Office visit Ulices Winter TRANSITION MGR RN 04/12/2014 Office visit Ulices Winter TRANSITION MGR RN 09/21/2011 [facility] Rama Watkins MD
--- OUTSIDE RECORDS SUMMARY | 2018-09-11 20:05 | XMS REPORT ---
Author Author Roman Dubois [facility] Address [address] [place], [place] [id number] Care Team Providers Care Fire Eater Name Role Phone Roman Dubois PCP Ulices Winter PreferredProvider Allergies and Adverse Reactions Name Reaction Notes Ceftin Latex Plan of Treatment Not available. Medications Active Name Start Date Estimated Completion Date SIG Comments Ventolin HFA 90 mcg/actuation inhalation HFA aerosol inhaler 07/30/2016 inhale 1 - 2 puffs (90 - 180 mcg) by inhalation route every 4-6 hours as needed hydrocodone-acetaminophen 10-325 mg oral tablet 03/12/2017 take 1 tablet by oral route every 6 hours as needed for pain Klonopin 1 mg oral tablet 03/12/2017 04/11/2017 take 1 tablet (1 mg) by oral [...] HC BMI BSA BMI Percentile O2 Sat(%) 03/29/2017 11:14:00 AM 120 mmHg 78 mmHg [...] 12/27/2016 12:00 AM CHORIONIC GONADOTROPIN ASSAY Reviewed 08/29/2014 [...] TEST NEGATIVE 12/31/2016 2:32 PM TEST NEGATIVE History Of Immunizations Not [...] of left hand Mar 29 2017 11:16AM Payers Insurance Name Company Name Plan Name Plan Number Policy Number Policy Group Number Start Date [id number] N/A History of Encounters Visit Date Visit Type Provider 03/29/2017 Office visit Roman Dubois PA-C 12/18/2016 Office visit Ulices Winter APRN 10/24/2016 [facility] Yannick Painting MD 07/30/2016 Office visit Ulices Winter APRN 11/03/2015 Office visit Ulices Winter APRN 10/04/2015 Office visit Ulices Winter APRN 09/07/2015 Office visit Ulices Winter APRN 07/27/2015 [facility] Mike Sheffield DO 07/24/2015 Office visit Ulices Winter APRN 07/11/2015 Office visit Mike Sheffield DO 06/29/2015 Office visit Ulices Winter APRN 04/28/2015 Office visit Ulices Winter APRN 04/04/2015 Office visit Ulices Winter APRN 03/07/2015 Office visit Ulices Winter APRN 02/08/2015 Office visit Ulices Winter APRN 01/25/2015 Office visit Ulices Winter APRN 01/09/2015 Office visit Ulices Winter APRN 12/02/2014 Office visit Ulcies Winter APRN 11/09/2014 Office visit Ulices Winter APRN 10/14/2014 Office visit Ulices Winter APRN 10/05/2014 Office visit Ulices Winter APRN 08/29/2014 Office visit Ulices Winter APRN 08/05/2014 Office visit Ulices Winter APRN 06/07/2014 Office visit Ulices Winter APRN 05/06/2014 Office visit Ulices Winter APRN 04/12/2014 Office visit Ulices Wniter APRN 09/21/2011 [facility] Rama Watkins MD
--- OUTSIDE RECORDS SUMMARY | 2018-09-11 20:05 | XMS REPORT ---
Author Mike Camacho [facility] Address [address] [place], [place] [address] Care Team Providers Care Payroll And Benefits Coordinator Name Role Phone Mike Sheffield PCP Unavailable Allergies and Adverse Reactions Name [...] HC BMI BSA BMI Percentile O2 Sat(%) 07/11/2015 2:12:00 PM 136 mmHg 77 mmHg [...] 12:00 AM ECHO EXAM OF ABDOMEN Returned 08/29/2014 12:00 AM SPECIMEN HANDLING OFFICE-LAB [...] 3:05PM Abdominal Pain Jul 11 2015 2:19PM Payers Insurance Name Company Name Plan Name Plan Number Policy Number Policy Group Number Start Date Sherry Powell [id number] N/A History of Encounters Visit Date Visit Type Provider 07/11/2015 Office visit Mike Sheffield DO 06/29/2015 Office visit Ulices Winter APRN 04/28/2015 Office visit Ulices Winter APRN 04/04/2015 Office visit Ulices Winter HEEL SHAVER 03/07/2015 Office visit Ulices Winter HEEL SHAVER 02/08/2015 Office visit Ulices Winter APRN 01/25/2015 Office visit Ulices Winter APRN 01/09/2015 Office visit Ulices Winter APRN 12/02/2014 Office visit Ulices Winter HEEL SHAVER 11/09/2014 Office visit Ulices Winter HEEL SHAVER 10/14/2014 Office visit Ulices Winter HEEL SHAVER 10/05/2014 Office visit Ulices Winter HEEL SHAVER 08/29/2014 Office visit Ulices Winter HEEL SHAVER 08/05/2014 Office visit Ulices Winter HEEL SHAVER 06/07/2014 Office visit Ulices Winter HEEL SHAVER 05/06/2014 Office visit Ulices Winter HEEL SHAVER 04/12/2014 Office visit Ulices Winter APRN 09/21/2011 [facility] Rama Watkins MD
--- OUTSIDE RECORDS SUMMARY | 2018-09-11 20:06 | XMS REPORT ---
Author Author Ulices Winter [facility] Address [address] [facility] [address] [place], [place] [address] Care Team Providers Care Test Worker Name Role Phone Ulices Winter PCP [...] 30 days hydrocodone-acetaminophen 10-325 mg oral tablet 12/06/2014 take 1 tablet by oral route every 6 hours as needed for pain Xanax 1 mg oral tablet 12/07/2014 01/06/2015 take 1 tablet by oral route 3 times a day for 30 days clindamycin HCl 300 mg oral capsule 12/03/2014 12/10/2014 take 1 capsule (300 mg) by oral route 2 times per day for 7 days Name Start Date Expiration Date SIG [...] HC BMI BSA BMI Percentile O2 Sat(%) 12/02/2014 10:17:00 AM 120 mmHg 80 mmHg [...] of thoracic spine Dec 02 2014 10:19AM Payers Insurance Name Company Name Plan Name Plan Number Policy Number Policy Group Number Start Date Sherry Powell [id number] N/A History of Encounters Visit Date Visit Type Provider 12/02/2014 Office visit Ulices Winter APRN 11/09/2014 Office visit Ulices Winter APRN 10/14/2014 Office visit Ulices Winter APRN 10/05/2014 Office visit Ulices Winter APRN 08/29/2014 Office visit Ulices Winter APRN 08/05/2014 Office visit Ulices Winter APRN 06/07/2014 Office visit Ulices Winter AG EQUIPMENT FIELD SERVICE TECHNICIAN 05/06/2014 Office visit Ulices Winter AG EQUIPMENT FIELD SERVICE TECHNICIAN 04/12/2014 Office visit Ulices Winter AG EQUIPMENT FIELD SERVICE TECHNICIAN 09/21/2011 [facility] Rama Watkins MD
--- OUTSIDE RECORDS SUMMARY | 2018-09-11 20:06 | XMS REPORT ---
Author Author [facility] Organization [facility] Address [address] [place], [place] [phone] Care Team Providers Care Policy Manager Name Role Phone PCP Unavailable Allergies and Adverse Reactions Name Reaction Notes Ceftin Plan of Treatment Planned Activity Comments Planned Date Planned Time Plan/Goal X-RAY EXAM THORAC SPINE 2VWS 04/12/2014 12:00 AM CYTOPATH C/V MANUAL 08/29/2014 12:00 AM CHYLMD TRACH DNA AMP PROBE 08/29/2014 12:00 AM N.GONORRHOEAE DNA AMP PROB 08/29/2014 12:00 AM TISSUE EXAM FOR FUNGI 08/29/2014 12:00 AM SMEAR WET MOUNT SALINE/INK 08/29/2014 12:00 AM Medications Active Name Start Date Estimated Completion Date SIG Comments Fetzima oral capsule,extended release 24 hr 40 mg 08/05/2014 11/03/2014 take 1 capsule (40 mg) by oral route once daily at approximately the same time each day for 30 days azithromycin oral tablet 250 mg 08/29/2014 09/03/2014 take 2 tablets (500 mg) by oral route once daily for 1 day then 1 tablet (250 mg) by oral route once daily for 4 days hydrocodone-acetaminophen oral tablet 10-325 mg 09/01/2014 take 1 tablet by oral route 2 times a day Xanax oral tablet 1 mg 09/01/2014 take 1 tablet by oral route 2 [...] HC BMI BSA BMI Percentile O2 Sat(%) 08/29/2014 9:49:00 AM 120 mmHg 85 mmHg [...] Alcohol Tobacco Never smoker History of Procedures Date Ordered Description Order Status 08/29/2014 12:00 AM SPECIMEN HANDLING OFFICE-LAB Reviewed Results Summary Data and Description Results 02/22/2010 [...] of thoracic spine Aug 29 2014 9:51AM Payers Insurance Name Company Name Plan Name Plan Number Policy Number Policy Group Number Start Date Sherry Powell [id number] N/A History of Encounters Visit Date Visit Type Provider 08/29/2014 Office visit Ulices Winter APRN 08/05/2014 Office visit Ulices Winter APRN 06/07/2014 Office visit Ulices Winter INSTITUTIONAL RESEARCH COORDINATOR 05/06/2014 Office visit Ulices Winter INSTITUTIONAL RESEARCH COORDINATOR 04/12/2014 Office visit Ulices Winter APRN 09/21/2011 [facility] Rama Watkins MD
--- OUTSIDE RECORDS SUMMARY | 2018-09-11 20:06 | XMS REPORT ---
Author Author Ulices Winter [facility] Address [address] [place], [place] [address] Care Team Providers Care Manager Account Management Name Role Phone Ulices Winter PCP Allergies [...] 30 days hydrocodone-acetaminophen 10-325 mg oral tablet 07/26/2015 take 1 tablet by oral route every 6 hours as needed for pain Xanax 1 mg oral tablet 07/26/2015 08/25/2015 take 1 tablet by oral route 3 [...] HC BMI BSA BMI Percentile O2 Sat(%) 07/24/2015 11:21:00 AM 130 mmHg 80 mmHg [...] 2015 2:19PM Amenorrhea Jul 24 2015 11:23AM Payers Insurance Name Company Name Plan Name Plan Number Policy Number Policy Group Number Start Date [id number] N/A History of Encounters Visit Date Visit Type Provider 07/24/2015 Office visit Ulices Winter APRN 07/11/2015 Office visit Mike Sheffield DO 06/29/2015 Office visit Ulices Winter SITE LEADER 04/28/2015 Office visit Ulices Winter SITE LEADER 04/04/2015 Office visit Ulices Winter SITE LEADER 03/07/2015 Office visit Ulices Winter SITE LEADER 02/08/2015 Office visit Ulices Winter SITE LEADER 01/25/2015 Office visit Ulices Winter APRN 01/09/2015 Office visit Ulices Winter SITE LEADER 12/02/2014 Office visit Ulices Winter APRN 11/09/2014 Office visit Ulices Winter SITE LEADER 10/14/2014 Office visit Ulices Winter APRN 10/05/2014 Office visit Ulices Winter SITE LEADER 08/29/2014 Office visit Ulices Winter SITE LEADER 08/05/2014 Office visit Ulices Winter SITE LEADER 06/07/2014 Office visit Ulices Winter SITE LEADER 05/06/2014 Office visit Ulices Winter SITE LEADER 04/12/2014 Office visit Ulices Winter APRN 09/21/2011 [facility] Rama Watkins MD
--- OUTSIDE RECORDS SUMMARY | 2018-09-11 20:07 | XMS REPORT ---
Author Author Roman Dubois [facility] Address [address] [place], [place] [address] Care Team Providers Care Television Script Writer Name Role Phone Roman Dubois PCP Ulices [...] Policy Number Policy Group Number Start Date [id number] N/A History of Encounters Visit Date Visit Type Provider 03/29/2017 Office visit Roman Dubois PA-C 12/18/2016 Office visit Ulices Winter APRN 10/24/2016 [facility] Yannick Painting MD 07/30/2016 Office visit [...]
--- OUTSIDE RECORDS SUMMARY | 2018-09-11 20:07 | XMS REPORT ---
Author Ulices Baptiste [facility] Address [address] [facility] [address] [place], [place] [address] Care Team Providers Care Detective Supervisor Name Role Phone Ulices Winter PCP Allergies and Adverse Reactions Name Reaction Notes Ceftin Plan of Treatment Planned Activity Comments Planned Date Planned Time Plan/Goal HEPATITIS C REVRS [id number] 02/08/2015 12:00 AM X-RAY EXAM THORAC SPINE 2VWS 04/12/2014 12:00 AM Medications Active Name Start Date Estimated Completion Date SIG Comments Fetzima 40 mg oral capsule,extended release 24 hr 03/07/2015 06/05/2015 take 1 capsule (40 mg) by oral route once daily at approximately the same time each day for 30 days hydrocodone-acetaminophen 10-325 mg oral tablet 03/07/2015 take 1 tablet by oral route every 6 hours as needed for pain Xanax 1 mg oral tablet 03/07/2015 04/06/2015 take 1 tablet by oral route 3 [...] HC BMI BSA BMI Percentile O2 Sat(%) 03/07/2015 11:22:00 AM 160 mmHg 90 mmHg [...] coma, unspecified chronicity Mar 07 2015 11:23AM Payers Insurance Name Company Name Plan Name Plan Number Policy Number Policy Group Number Start Date [facility] [id number] N/A History of Encounters Visit Date Visit Type Provider 03/07/2015 Office visit Ulices Winter APRN 02/08/2015 [...] 04/12/2014 Office visit Ulices Winter APRN 09/21/2011 [facility] Rama Watkins MD
--- OUTSIDE RECORDS SUMMARY | 2018-09-11 20:08 | XMS REPORT ---
Author Author Ulices Winter [facility] Address [address] [place], [place] [address] Care Team Providers Care Multimedia Author Name Role Phone Ulices Winter PCP Allergies [...] Policy Number Policy Group Number Start Date [id number] N/A History of Encounters Visit Date Visit Type Provider 07/24/2015 Office visit Ulices Winter APRN 07/11/2015 Office visit Mike Sheffield DO 06/29/2015 Office visit Ulices Winter HOT TOP LINER HELPER 04/28/2015 Office visit Ulices Winter HOT TOP LINER HELPER 04/04/2015 Office visit Ulices Winter HOT TOP LINER HELPER 03/07/2015 Office visit Ulices Winter HOT TOP LINER HELPER 02/08/2015 Office visit Ulices Winter HOT TOP LINER HELPER 01/25/2015 Office visit Ulices Winter APRN 01/09/2015 Office visit Ulices Winter HOT TOP LINER HELPER 12/02/2014 Office visit Ulices Winter APRN 11/09/2014 Office visit Ulices Winter HOT TOP LINER HELPER 10/14/2014 Office visit Ulices Winter APRN 10/05/2014 Office visit Ulices Winter HOT TOP LINER HELPER 08/29/2014 Office visit Ulices Winter HOT TOP LINER HELPER 08/05/2014 Office visit Ulices Winter HOT TOP LINER HELPER 06/07/2014 Office visit Ulices Winter HOT TOP LINER HELPER 05/06/2014 Office visit Ulices Winter HOT TOP LINER HELPER 04/12/2014 Office visit Ulices Winter APRN 09/21/2011 [facility] Rama Watkins MD
--- OUTSIDE RECORDS SUMMARY | 2018-09-11 20:08 | XMS REPORT ---
Author Ulices Baptiste [facility] Address [address] [facility] [address] [place], [place] [address] Care Team Providers Care Photoradio Operator Name Role Phone Ulices Winter PCP Allergies and Adverse Reactions Name Reaction Notes Ceftin Plan of Treatment Planned Activity Comments Planned Date Planned Time Plan/Goal HEPATITIS C REVRS [id number] 02/08/2015 12:00 AM X-RAY EXAM THORAC SPINE 2VWS 04/12/2014 12:00 AM Medications Active Name Start Date Estimated Completion Date SIG Comments Fetzima 40 mg oral capsule,extended release 24 hr 02/08/2015 05/09/2015 take 1 capsule (40 mg) by oral route once daily at approximately the same time each day for 30 days hydrocodone-acetaminophen 10-325 mg oral tablet 02/08/2015 take 1 tablet by oral route every 6 hours as needed for pain Xanax 1 mg oral tablet 02/08/2015 03/10/2015 take 1 tablet by oral route 3 [...] HC BMI BSA BMI Percentile O2 Sat(%) 02/08/2015 2:10:00 PM 120 mmHg 80 mmHg [...] coma, unspecified chronicity Feb 08 2015 2:11PM Payers Insurance Name Company Name Plan Name Plan Number Policy Number Policy Group Number Start Date [id number] N/A History of Encounters Visit Date Visit Type Provider 02/08/2015 Office visit Ulices Winter APRN 01/25/2015 [...] 04/12/2014 Office visit Ulices Winter APRN 09/21/2011 [facility] Rama Watkins MD
--- OUTSIDE RECORDS SUMMARY | 2018-09-11 20:09 | XMS REPORT ---
Author Author Migration, Doctor Organization [facility] Address Unknown Phone Unavailable Care Team Providers Care Pari Mutual Ticket Checker Name Role Phone Migration, Doctor Unavailable Unavailable PROBLEMS Type Condition ICD9-CM Code [id number] Code Onset Dates Condition Status SNOMED Code Problem Depressive disorder, not elsewhere classified 311 Active 45142158 Problem Constipation, unspecified constipation type K59.00 Active 04050819 Problem Irritable bowel syndrome 564.1 Active 76991741 ALLERGIES No Information ENCOUNTERS Encounter Location Date Diagnosis [facility] [id number] [place] [phone] Jun, Constipation, unspecified constipation type K59.00 [facility] [id number] [place] [phone] Jun, [facility] [id number] [place] [phone] Jun, [facility] [id number] [place] [id number] Jan, [facility] [id number] [place] [phone] Jan, [facility] [id number] [id number] Jan, [facility] [id number] [place] [phone] Jan, [facility] [id number] [id number] Aug, [facility] [id number] [place] [phone] Aug, [facility] [id number] [id number] July, [facility] [id number] [place] [phone] July, [facility] [address] [facility] [id number] [id number] Jun, [facility] [address] [facility] [id number], [place] [address] Jun, [facility] [address] [facility] [id number] [id number] May, [facility] [address] [facility] [id number], [place] [address] May, [facility] [address] [facility] [id number], [place] [address] Dec, [facility] [address], [place] [address] Nov, [facility] [id number], [place] [address] Oct, [facility] [id number], [place] [address] Oct, [facility] [address] [id number], [place] [address] Apr, IMMUNIZATIONS No Known Immunizations SOCIAL HISTORY Never Assessed REASON FOR VISIT [facility] PLAN OF CARE VITAL SIGNS MEDICATIONS Medication Instructions Dosage Frequency Start Date End Date Duration Status Abilify 5 mg 1 tablet by Oral route 1 time per day Jan, Active Celexa 10 mg 1 tablet by Oral route 1 time per day Jan, Active RESULTS No Results PROCEDURES No Known procedures INSTRUCTIONS MEDICATIONS ADMINISTERED No Known Medications MEDICAL (GENERAL) HISTORY Type Description Date Surgical History tonsillectomy and adenoidectomy Surgical History cholecystectomy
--- OUTSIDE RECORDS SUMMARY | 2018-09-11 20:09 | XMS REPORT | Continuity of Care Document ---
Demographics Preferred Language Unknown Marital Status Unknown Jewish Affiliation Unknown Race Unknown Ethnic Group Unknown Author Organization Unknown Address Unknown Allergies Active Description Code Type Severity Reaction Onset Reported/Identified Relationship to Patient Clinical Status Yes CEFTIN 36439400 BRANDNAME N/A N/A Yes IODINE 34152715 DRUG N/A N/A Yes KEFLEX 74134456 BRANDNAME N/A N/A Yes LATEX 61961293 ENVIRONMENTAL N/A N/A Yes Ceftin Drug Allergy N/A N/A 04/14/2009 Medications There is no data. Problems Date Dx Coded Attending Type Code Diagnosis Diagnosed By 04/14/2009 STARR BARNETT DO V72.31 LEAD PRESS OPERATOR EXAM, ROUTINE 04/14/2009 STARR BARNETT DO V72.31 LEAD PRESS OPERATOR EXAM, ROUTINE 04/14/2009 DENISE SOW APRN V72.31 LEAD PRESS OPERATOR EXAM, ROUTINE 10/13/2009 STARR BARNETT DO 622.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 10/13/2009 STARR BARNETT DO K V22.2 INCIDENTAL 10/13/2009 STARR BARNETT DO V23.2 HIGH RISK HX OF 10/13/2009 STARR BARNETT DO 622.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 10/13/2009 STARR BARNETT DO K V22.2 INCIDENTAL 10/13/2009 STARR BARNETT DO K V23.2 HIGH RISK HX OF 10/13/2009 DENISE SOW APRN E 622.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 10/13/2009 DENISE SOW APRN E V22.2 INCIDENTAL 10/13/2009 CALVIN SOW APRNE E V23.2 HIGH RISK HX OF 10/20/2009 STARR BARNETT DO 616.0 CERVICITIS AND ENDOCERVICITIS 10/20/2009 STARR BARNETT DO K 616.0 CERVICITIS AND ENDOCERVICITIS 10/20/2009 DENISE SOW APRN E 616.0 CERVICITIS AND ENDOCERVICITIS 11/13/2009 STARR BARNETT DO V23.9 HIGH-RISK CARE UNSPEC 11/13/2009 STARR BARNETT DO V23.9 HIGH-RISK CARE UNSPEC 11/13/2009 DENISE SOW APRN V23.9 HIGH-RISK CARE UNSPEC 05/20/2013 STARR BARNETT DO 311 DEPRESSIVE DISORDER NOS 05/20/2013 STARR BARNETT DO 311 DEPRESSIVE DISORDER NOS 05/20/2013 DENISE SOW APRN 311 DEPRESSIVE DISORDER NOS 01/10/2014 DENISE SOW APRN 564.1 IRRITABLE BOWEL SYNDROME 03/29/2017 P W31190 Cellulitis of left upper limb 12/16/2017 S M42090 Nicotine dependence, cigarettes, uncomplicated 12/16/2017 S R262 Difficulty in walking, not elsewhere classified 12/16/2017 P R4182 Altered mental status, unspecified 12/16/2017 S S457H6F Adverse effect of cannabis (derivatives), initial encounter 05/26/2018 S S92489 Nicotine dependence, cigarettes, uncomplicated 05/26/2018 P W83200H Laceration without foreign body, left thigh, initial encounter 05/26/2018 S G77108Z Fall on same level from slipping, tripping and stumbling with subsequent striking against other sharp object, initial encounter 05/26/2018 S Z331 state, incidental 05/26/2018 S F00631 Nicotine dependence, cigarettes, uncomplicated 05/26/2018 P K72695V Laceration without foreign body, left thigh, initial encounter 05/26/2018 S V828CGG Fall on same level from slipping, tripping and stumbling without subsequent striking against object, initial encounter 06/18/2018 P O6002 labor without delivery, second trimester 06/18/2018 S Z3A25 25 weeks gestation of 06/22/2018 S F1990 Other psychoactive substance use, unspecified, uncomplicated 06/22/2018 P X41727 Drug use complicating , second trimester Procedures Code Description [place] [address] TEST, URINE (IN-HOUSE) 01/10/2014 00206 UA LONG DIP 01/10/2014 GASTRODALLAS BAILEY 01/10/2014 Results There is no data. Encounters ACCT No. Visit Date/Time Discharge Status Pt. Type Provider Facility Loc./Unit Complaint [id number] 08/04/2018 16:26:20 Document Registration [id number] 08/03/2018 15:46:09 Document Registration [id number] 08/03/2018 14:28:55 Document Registration [id number] 06/25/2018 17:01:58 Document Registration [id number] 06/25/2018 16:47:05 Document Registration [id number] 06/22/2018 10:09:49 Document Registration [id number] 06/18/2018 17:52:50 Document Registration [id number] 05/26/2018 20:02:02 Document Registration [id number] 05/26/2018 19:31:17 Document Registration [id number] 05/07/2018 11:27:47 Document Registration [id number] 04/28/2018 10:46:02 Document Registration [id number] 04/15/2018 16:11:11 Document Registration [id number] 04/15/2018 16:09:41 Document Registration [id number] 04/15/2018 15:34:00 Document Registration [id number] 12/16/2017 02:20:15 Document Registration [id number] 12/16/2017 02:16:08 Document Registration [id number] 10/07/2017 15:52:11 Document Registration [id number] 03/30/2017 07:27:19 Document Registration [id number] 03/29/2017 12:05:40 Document Registration [id number] 01/03/2017 14:56:32 Document Registration [id number] 01/03/2017 14:26:49 Document Registration [id number] 12/31/2016 14:38:44 Document Registration [id number] 10/24/2016 13:58:00 Document Registration [id number] 10/24/2016 12:55:52 Document Registration [id number] 09/09/2018 14:45:00 ACT Outpatient UMBERTO ALBERTO LAC [facility] [id number] 01/10/2014 11:35:00 01/10/2014 23:59:59 CLS Outpatient DENISE SOW APRN [id number] 06/17/2013 14:55:00 06/17/2013 23:59:59 CLS Outpatient STARR BARNETT DO [id number] 05/20/2013 14:02:00 05/20/2013 23:59:59 CLS Outpatient STARR BARNETT DO
--- OUTSIDE RECORDS SUMMARY | 2018-09-11 20:09 | XMS REPORT ---
Author Author Migration, Doctor Organization [facility] Address Unknown Phone Unavailable Care Team Providers Care Hand Bender Name Role Phone Migration, Doctor Unavailable Unavailable PROBLEMS Type Condition ICD9-CM Code KFY50-MQ Code Onset Dates Condition Status SNOMED Code Problem Depressive disorder, not elsewhere classified 311 Active 84120565 Problem Constipation, unspecified constipation type K59.00 Active 06604600 Problem Irritable bowel syndrome 564.1 Active 23901308 ALLERGIES No Information ENCOUNTERS Encounter Location Date Diagnosis [facility] [id number] [place] [address] Jun, Constipation, unspecified constipation type K59.00 [facility] [id number] [place] [address] Jun, [facility] [id number] [place] [address] Jun, [facility] [id number] [place] [id number] Jan, [facility] [id number] [place] [address] Jan, [facility] [id number] [id number] Jan, [facility] [id number] [place] [address] Jan, [facility] [id number] [place] [id number] Aug, [facility] [id number] [place] [address] Aug, [facility] [id number] [place] [phone] July, [facility] [id number] [place] [address] July, [facility] [address] [facility] [id number] [place] [phone] Jun, [facility] [address], [place] [address] Jun, [facility] [address] [id number] [place] [phone] May, [facility] [address] [address] May, [facility] [address] [address] Dec, [facility] [address] [address] Nov, [facility] [address] [address] Oct, [facility] [address], [place] [address] Oct, [facility] [address] [id number], [place] [address] Apr, IMMUNIZATIONS No Known Immunizations SOCIAL HISTORY Never Assessed REASON FOR VISIT [facility] [place] CARE VITAL SIGNS MEDICATIONS No Known Medications RESULTS No Results PROCEDURES No Known procedures INSTRUCTIONS MEDICATIONS ADMINISTERED No Known Medications MEDICAL (GENERAL) HISTORY Type Description Date Surgical History tonsillectomy and adenoidectomy Surgical History cholecystectomy
--- OUTSIDE RECORDS SUMMARY | 2018-09-11 20:09 | XMS REPORT ---
Author Author Ulices Winter [facility] Address [address] [place], [place] [id number] Care Team Providers Care Respiratory Therapy Manager Name Role Phone Ulices Winter PCP Allergies [...] 30 days hydrocodone-acetaminophen 10-325 mg oral tablet 05/01/2015 take 1 tablet by oral route every 6 hours as needed for pain Xanax 1 mg oral tablet 05/01/2015 05/31/2015 take 1 tablet by oral route 3 [...] HC BMI BSA BMI Percentile O2 Sat(%) 04/28/2015 10:42:00 AM 110 mmHg 70 mmHg [...] coma, unspecified chronicity Apr 28 2015 10:42AM Payers Insurance Name Company Name Plan Name Plan Number Policy Number Policy Group Number Start Date Sherry Powell [id number] N/A History of Encounters Visit Date Visit Type Provider 04/28/2015 Office visit Ulices Winter JUVENILE JUSTICE SPECIALIST 04/04/2015 Office visit Ulices Winter JUVENILE JUSTICE SPECIALIST 03/07/2015 Office visit Ulices Winter JUVENILE JUSTICE SPECIALIST 02/08/2015 Office visit Ulices Winter JUVENILE JUSTICE SPECIALIST 01/25/2015 Office visit Ulices Winter JUVENILE JUSTICE SPECIALIST 01/09/2015 Office visit Ulices Winter JUVENILE JUSTICE SPECIALIST 12/02/2014 Office visit Ulices Winter JUVENILE JUSTICE SPECIALIST 11/09/2014 Office visit Ulices Winter JUVENILE JUSTICE SPECIALIST 10/14/2014 Office visit Ulices Winter JUVENILE JUSTICE SPECIALIST 10/05/2014 Office visit Ulices Winter JUVENILE JUSTICE SPECIALIST 08/29/2014 Office visit Ulices Winter JUVENILE JUSTICE SPECIALIST 08/05/2014 Office visit Ulices Winter JUVENILE JUSTICE SPECIALIST 06/07/2014 Office visit Ulices Winter JUVENILE JUSTICE SPECIALIST 05/06/2014 Office visit Ulices Winter JUVENILE JUSTICE SPECIALIST 04/12/2014 Office visit Ulices Winter JUVENILE JUSTICE SPECIALIST 09/21/2011 [facility] Rama Watkins MD
--- OUTSIDE RECORDS SUMMARY | 2018-09-11 20:09 | XMS REPORT ---
Author Author RACHEL BRIGGS Organization [facility] Address [address] [place] [address] Care Team Providers Care Practice Nurse Name Role Phone RACHEL BRIGGS Unavailable PROBLEMS Type Condition ICD9-CM Code [id number] Code Onset Dates Condition Status SNOMED Code Problem Constipation, unspecified constipation type K59.00 Active 29700921 Problem Depressive disorder, not elsewhere classified 311 Active 94747481 Problem Irritable bowel syndrome 564.1 Active 24344825 ALLERGIES Substance Reaction Event Type Date Status Cephalexin Unknown Drug Allergy Jun, Active ENCOUNTERS Encounter Location Date Diagnosis [facility] [address], [place] [address] Jun, Constipation, unspecified constipation type K59.00 [facility] [address], [place] [address] Jun, [facility] [id number] [place] [address] Jun, [facility] [address] [id number] [place] [phone] Jan, [facility] [address] [id number], [place] [address] Jan, [facility] [address] [id number] [place] [phone] Jan, [facility] [address] [facility] [id number] [place] [address] Jan, [facility] [address] [id number] [place] [id number] Aug, [facility] [address] [facility] [id number], [place] [address] Aug, [facility] [address] [id number] [place] [phone] July, [facility] [address], [place] [address] July, [facility] [address] [id number] [place] [phone] Jun, [facility] [address], [place] [address] Jun, [facility] [id number] [place] [id number] May, [facility] [address], [place] [address] May, [facility] [address], [place] [address] Dec, [facility] [address], [place] [address] Nov, [facility] [address], [place] [address] Oct, [facility] [address], [place] [address] Oct, [facility] [address], [place] [address] Apr, IMMUNIZATIONS No Known Immunizations SOCIAL HISTORY Never Assessed REASON FOR VISIT Constipation and abd pain started 3 weeks ago JStrasserRN, Laxative and enema ye PLAN OF CARE Activity Details Follow Up prn Reason: VITAL SIGNS Height 65 in 2017-06-11 Weight 165.8 lbs 2017-06-11 Temperature 98.0 degrees Fahrenheit 2017-06-11 Heart Rate 90 bpm 2017-06-11 Respiratory Rate 20 2017-06-11 BMI 27.59 kg/m2 2017-06-11 Blood pressure systolic 116 mmHg 2017-06-11 Blood pressure diastolic 62 mmHg 2017-06-11 MEDICATIONS Medication Instructions Dosage Frequency Start Date End Date Duration Status Zoloft 25 MG Orally Once a day 1 tablet 24h Active Clonazepam 1 MG Orally TID 1 tablet 8h Active MiraLax - Orally Once a day 17 grams 24h Jun, July, 30 days Active Hydrocodone-Acetaminophen 10-300 MG Orally every 6 hrs 1 tablet as needed 6h Active RESULTS Name Result Date Reference Range TEST, URINE (IN HOUSE) 2017-06-11 RESULTS Negative Lot # [id number] Control + Exp date 30 September 2018 Xray : KUB (IN HOUSE) 2017-06-11 PROCEDURES Procedure Date Ordered Result Body Site X-RAY EXAM ABDOMEN 1 VIEW June 11, 2017 URINE TEST June 11, 2017 INSTRUCTIONS MEDICATIONS ADMINISTERED No Known Medications MEDICAL (GENERAL) HISTORY Type Description Date Surgical History tonsillectomy and adenoidectomy Surgical History cholecystectomy
--- OUTSIDE RECORDS SUMMARY | 2018-09-11 20:09 | XMS REPORT ---
Author Author Migration, Doctor Organization [facility] Address Unknown Phone Unavailable Care Team Providers Care Senior Mainframe Programmer Analyst Name Role Phone Migration, Doctor Unavailable Unavailable PROBLEMS Type Condition ICD9-CM Code [id number] Code Onset Dates Condition Status SNOMED Code Problem Depressive disorder, not elsewhere classified 311 Active 03356311 Problem Constipation, unspecified constipation type K59.00 Active 12106508 Problem Irritable bowel syndrome 564.1 Active 24415024 ALLERGIES No Information ENCOUNTERS Encounter Location Date Diagnosis [facility] [id number] [place] [address] Jun, Constipation, unspecified constipation type K59.00 [facility] [id number] [place] [address] Jun, [facility] [id number] [place] [address] Jun, [facility] [id number] [place] [id number] Jan, [facility] [id number] [place] [address] Jan, [facility] [id number] [id number] Jan, [facility] [id number] [place] [address] Jan, [facility] [id number][place] [id number] Aug, [facility] [id number] [place] [address] Aug, [facility] [id number], [place] [id number] July, [facility] [id number] [place] [address] July, [facility] [address] [facility] [id number][place] [phone] Jun, [facility] [address], [place] [address] Jun, [facility] [address] [id number] [phone] May, [facility] [address], [place] [address] May, [facility] [address], [place] [address] Dec, [facility] [address], [place] [address] Nov, [facility] [address], [place] [address] Oct, [facility] [address], [place] [address] Oct, [facility] [address] [id number], [place] [address] Apr, IMMUNIZATIONS No Known Immunizations SOCIAL HISTORY Never Assessed REASON FOR VISIT [facility] PLAN OF CARE VITAL SIGNS MEDICATIONS No Known Medications RESULTS No Results PROCEDURES No Known procedures INSTRUCTIONS MEDICATIONS ADMINISTERED No Known Medications MEDICAL (GENERAL) HISTORY Type Description Date Surgical History tonsillectomy and adenoidectomy Surgical History cholecystectomy
== END 2018-09-05 08:24 | disposition home or self-care (01) ==
LOC: LDRP 09:59 → WSo 10:14 → LDRP 10:15 → WSo 09-05 09:35 → EDSTATUS 09-11 11:47
PROVIDERS: ADMIT Family Medicine; ATTEND Family Medicine
DX: O99.89 Other specified diseases and conditions complicating pregnancy, childbirth and the puerperium (principal); I77.6 Arteritis, unspecified; Z3A.36 36 weeks gestation of pregnancy
CPT/HCPCS: 36415; 80053; 80306; 81000; 85007; 85027; 85652; 86038; 86141; 96361; 96374; 96376; 99211; G0378

== ENCOUNTER 2018-09-28 06:12 | Inpatient (IN) | payer OTHER, MEDICAID ==
[2018-09-28] VITALS (74 sets, daily range): BP systolic 95–161; BP diastolic 47–100
[~2018-09-28] VITALS: Ht 165.1 cm; Wt 79.4 kg
--- NOTE | 2018-09-28 06:05 | NUR ---
RHODA LEDEZMA presented to unit via ambulatory from home, accompanied by family, for INDUCTION. RHODA LEDEZMA weighed, gowned, voided, and to bed. EFHM and TOCO applied, VS taken. RHODA LEDEZMA oriented to bed controls, call light, TV, heat, and A/C controls.
[~2018-09-28 06:12] MED LIST: CLIN300C3 PO; D5 LR IV SOLUTION 1,000 ML IV ONE; DIPH25CA79 PO; HYDR50CA PO; MELA10TA2 PO; PRD20T PO; PREN1TAB79 PO; ZOLP5TAB PO
[2018-09-28] MEDS ORDERED: HYDR50CA PO (06:16)
[2018-09-28] MEDS ORDERED: CALCIUM CARBONATE 500 MG (TUMS) TAB.CHEW ONE (06:30)
[2018-09-28] MEDS ORDERED: MINERAL OIL CONCENTRATE 99.9% 15 ML UDC TOP PRN (06:30)
[2018-09-28] MEDS ORDERED: CALCIUM CARBONATE 500 MG (TUMS) TAB.CHEW PO NR (06:45)
[2018-09-28 06:47] LABS: BASOPHILS % (AUTO) 0 % (0-10); EOSINOPHILS # (AUTO) 0.4 10^3/uL (0.0-0.3); EOSINOPHILS % (AUTO) 3 % (0-10); HEMATOCRIT 34 % (35-52); HEMOGLOBIN 11.8 G/DL (11.5-16.0); LYMPHOCYTES # (AUTO) 3.2 X 10^3 (1.0-4.0); LYMPHOCYTES % (AUTO) 21 % (12-44); MEAN CORPUSCULAR HEMOGLOBIN 32 PG (25-34); MEAN CORPUSCULAR HGB CONC 35 G/DL (32-36); MEAN CORPUSCULAR VOLUME 91 FL (80-99); MEAN PLATELET VOLUME 10.6 FL (7.4-10.4); MONOCYTES # (AUTO) 1.1 X 10^3 (0.0-1.0); MONOCYTES % (AUTO) 7 % (0-12); NEUTROPHILS # (AUTO) 10.4 X 10^3 (1.8-7.8); NEUTROPHILS % (AUTO) 69 % (42-75); PLATELET COUNT 323 10^3/uL (130-400); RED CELL DISTRIBUTION WIDTH 13.3 % (10.0-14.5); WHITE BLOOD COUNT 15.1 10^3/uL (4.3-11.0)
[2018-09-28] MEDS: D5 LR IV SOLUTION 1,000 ML IV SCH ×2 (06:47→13:30)
--- OUTSIDE RECORDS SUMMARY | 2018-09-28 06:59 | XMS REPORT | Continuity of Care Document ---
Demographics Preferred Language Unknown Marital Status Unknown Taoist Affiliation Unknown Race Unknown Ethnic Group Unknown Author Organization Unknown Address Unknown Phone Unavailable Allergies Active Description Code Type Severity Reaction Onset Reported/Identified Relationship to Patient Clinical Status Yes CEFTIN 66302643 BRANDNAME N/A N/A Yes IODINE 16458346 DRUG N/A N/A Yes KEFLEX 37845048 BRANDNAME N/A N/A Yes LATEX 89816095 ENVIRONMENTAL N/A N/A Yes Ceftin Drug Allergy N/A N/A 04/14/2009 Medications There is no data. Problems Date Dx Coded Attending Type Code Diagnosis Diagnosed By 04/14/2009 STARR BARNETT DO V72.31 CAR FERRY CAPTAIN EXAM, ROUTINE 04/14/2009 STARR BARNETT DO V72.31 CAR FERRY CAPTAIN EXAM, ROUTINE 04/14/2009 DENISE SOW APRN V72.31 CAR FERRY CAPTAIN EXAM, ROUTINE 10/13/2009 STARR BARNETT DO 622.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 10/13/2009 STARR BARNETT DO K V22.2 INCIDENTAL 10/13/2009 MIN BARNETT DOA K V23.2 HIGH RISK HX OF 10/13/2009 STARR BARNETT DO K 622.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 10/13/2009 STARR BARNETT DO K V22.2 INCIDENTAL 10/13/2009 MIN BARNETT DOA K V23.2 HIGH RISK HX OF 10/13/2009 DENISE SOW APRN E 622.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 10/13/2009 DENISE SOW APRN E V22.2 INCIDENTAL 10/13/2009 CALVIN SOW APRNE E V23.2 HIGH RISK HX OF 10/20/2009 STARR BARNETT DO K 616.0 CERVICITIS AND ENDOCERVICITIS 10/20/2009 STARR BARNETT DO K 616.0 CERVICITIS AND ENDOCERVICITIS 10/20/2009 DENISE SOW APRN E 616.0 CERVICITIS AND ENDOCERVICITIS 11/13/2009 STARR BARNETT DO V23.9 HIGH-RISK CARE UNSPEC 11/13/2009 STARR BARNETT DO Ferdinand V23.9 HIGH-RISK CARE UNSPEC 11/13/2009 DENISE SOW APRN V23.9 HIGH-RISK CARE UNSPEC 05/20/2013 ANIBAL LOFTON STARR Ferdinand 311 DEPRESSIVE DISORDER NOS 05/20/2013 STARR BARNETT DO 311 DEPRESSIVE DISORDER NOS 05/20/2013 DENISE SOW APRN 311 DEPRESSIVE DISORDER NOS 01/10/2014 DENISE SOW APRN 564.1 IRRITABLE BOWEL SYNDROME 03/29/2017 P L08660 Cellulitis of left upper limb 12/16/2017 S A64398 Nicotine dependence, cigarettes, uncomplicated 12/16/2017 S R262 Difficulty in walking, not elsewhere classified 12/16/2017 P R4182 Altered mental status, unspecified 12/16/2017 S T690W4G Adverse effect of cannabis (derivatives), initial encounter 05/26/2018 S U54081 Nicotine dependence, cigarettes, uncomplicated 05/26/2018 P R90011M Laceration without foreign body, left thigh, initial encounter 05/26/2018 S Z82445Q Fall on same level from slipping, tripping and stumbling with subsequent striking against other sharp object, initial encounter 05/26/2018 S Z331 state, incidental 05/26/2018 S J38293 Nicotine dependence, cigarettes, uncomplicated 05/26/2018 P V23354G Laceration without foreign body, left thigh, initial encounter 05/26/2018 S U065MGS Fall on same level from slipping, tripping and stumbling without subsequent striking against object, initial encounter 06/18/2018 P O6002 labor without delivery, second trimester 06/18/2018 S Z3A25 25 weeks gestation of 06/22/2018 S F1990 Other psychoactive substance use, unspecified, uncomplicated 06/22/2018 P K11004 Drug use complicating , second trimester Procedures Code [place] [address] TEST, URINE (IN-HOUSE) 01/10/2014 07593 UA LONG DIP 01/10/2014 GASTROENT [place] GOMES 01/10/2014 Results Test Result Range CULTURE, GROUP B STREP (VAGINAL) - 09/02/18 18:10 STREPTOCOCCUS, GROUP B CULTURE SEE NOTE NRG Encounters ACCT No. Visit Date/Time Discharge Status Pt. Type Provider Facility Loc./Unit Complaint [id number] 08/04/2018 16:26:20 Document Registration [id number] 08/03/2018 15:46:09 Document Registration [id number] 08/03/2018 14:28:55 Document Registration [id number] 06/25/2018 17:01:58 Document Registration [id number] 06/25/2018 16:47:05 Document Registration [id number] 06/22/2018 10:09:49 Document Registration [id number] 06/18/2018 17:52:50 Document Registration [id number] 05/26/2018 20:02:02 Document Registration [id number] 05/26/2018 19:31:17 Document Registration [id number] 05/07/2018 11:27:47 Document Registration [id number] 04/28/2018 10:46:02 Document Registration [id number] 04/15/2018 16:11:11 Document Registration [id number] 04/15/2018 16:09:41 Document Registration [id number] 04/15/2018 15:34:00 Document Registration [id number] 12/16/2017 02:20:15 Document Registration [id number] 12/16/2017 02:16:08 Document Registration [id number] 10/07/2017 15:52:11 Document Registration [id number] 03/30/2017 07:27:19 Document Registration [id number] 03/29/2017 12:05:40 Document Registration [id number] 01/03/2017 14:56:32 Document Registration [id number] 01/03/2017 14:26:49 Document Registration [id number] 12/31/2016 14:38:44 Document Registration [id number] 10/24/2016 13:58:00 Document Registration [id number] 10/24/2016 12:55:52 Document Registration [id number] 09/24/2018 13:00:00 09/24/2018 23:59:59 CLS Outpatient [facility] [id number] 09/02/2018 14:15:00 Document Registration [id number] 01/10/2014 11:35:00 01/10/2014 23:59:59 CLS Outpatient DENISE SOW APRN [id number] 06/17/2013 14:55:00 06/17/2013 23:59:59 CLS Outpatient STARR BARNETT DO [id number] 05/20/2013 14:02:00 05/20/2013 23:59:59 [facility] Outpatient STARR BARNETT DO
--- NOTE | 2018-09-28 07:30 | History & Physical-OB ---
OB - Chief Complaint & HPI Date/Time Date of Admission: Date of Admission: Sep 28, 2018 at 06:12 Date seen by a Provider: Sep 28, 2018 Time Seen by a Provider: 07:20 Chief Complaint/History OB-Reason for Admission/Chief: Induction of Labor Hx : 5 Hx Para: 4 Expected Date of Delivery: Oct 01, 2019 Gestational Age in Weeks: 39 Gestational Age in Days: 5 Admission Nurse Assessment Rev: Yes History of Labs GBS negative at 36 weeks. History of hepatitis C Allergies and Home Medications Allergies Coded Allergies: cefuroxime (Verified Allergy, Unknown, Rash, 09/28/18) iodine (Verified Allergy, Unknown, Rash, 09/28/18) latex (Verified Allergy, Unknown, Rash, 09/28/18) Home Medications Hydroxyzine Pamoate 50 Mg Capsule, 50 MG PO Q6H, (Reported) Vit W-Ca,Fe,FA(<1 mg) 1 Each Tablet, 1 EACH PO DAILY, (Reported) Patient Home Medication List Home Medication List Reviewed: Yes OB - History Hx of Present Care: Yes Ultrasounds: Normal mid trimester US Obstetrical Complications: None Medical Complications: Other (Hepatitis C) Delivery History Hx Blood Disorders: No Patient Past Medical History History of Hepatitis C Social History/Family History HIV/AIDS: No Sexually Transmitted Disease: No Alcohol Use: Denies Use Recreational Drug Use: No (previously smoked marijuana) OB - Admission Exam Physical Exam Vitals: Vital Signs 09/28/18 09/28/18 06:30 07:00 Temp 98.1 Pulse 75 Resp 16 B/P (MAP) 120/67 (84) O2 Delivery Room Air HEENT: Moist Membranes Heart: Rhythm Normal Lungs: Clear Abdomen: Gravid Cervical Dilatation: 1cm ( to 1 1/2) Effacement: 50% Station: -3 Membranes: Ruptured Amniotic Fluid: Clear Heart Rate: 130's Accelerations: Accelerations Present Decelerations: No Decelerations Short Term Variability: Present Half-Way Variability: Average (6-25) Contractions on Admission: >10 Minutes Apart Intensity: Mild Morgan Scoring Tool (Modified) Dilation (cm): 1-2cm (1) Effacement (%): 31-51% (1) Descent/Station: -3 (0) Cervix Consistency: Medium(1) Cervix Position: Middle/Mid-Position (1) Add 1 point for: Each previous vaginal delivery (1) Morgan Score: 8 Labs Laboratory Tests Test 09/28/18 06:30 Range/Units White Blood Count 15.1 H 4.3-11.0 10^3/uL Red Blood Count 3.73 L 4.35-5.85 10^6/uL Hemoglobin 11.8 11.5-16.0 G/DL Hematocrit 34 L 35-52 % Mean Corpuscular Volume 91 80-99 FL Mean Corpuscular Hemoglobin 32 25-34 PG Mean Corpuscular Hemoglobin Concent 35 32-36 G/DL Red Cell Distribution Width 13.3 10.0-14.5 % Platelet Count 323 130-400 10^3/uL Mean Platelet Volume 10.6 H 7.4-10.4 FL Neutrophils (%) (Auto) 69 42-75 % Lymphocytes (%) (Auto) 21 12-44 % Monocytes (%) (Auto) 7 0-12 % Eosinophils (%) (Auto) 3 0-10 % Basophils (%) (Auto) 0 0-10 % Neutrophils # (Auto) 10.4 H 1.8-7.8 X 10^3 Lymphocytes # (Auto) 3.2 1.0-4.0 X 10^3 Monocytes # (Auto) 1.1 H 0.0-1.0 X 10^3 Eosinophils # (Auto) 0.4 H 0.0-0.3 10^3/uL Basophils # (Auto) 0.0 0.0-0.1 10^3/uL OB - Assessment/Plan/Diagnosis Assessment Assessment: induction of labor Admission Dx 1. IUP at 39w5d 2. History of Hepatitis C Admission Status: Inpatient Order (span 2 midnights) Reason for Inpatient Admission: L&D Plan Plan: Induction Induction Method: AROM (with pitocin) Other Plan -she may desire an epidural -blood precautions (universal precautions) HEATHER MELARA MD Sep 28, 2018 07:30
[2018-09-28] MEDS ORDERED: OXYTOCIN/NORMAL SALINE 500 ML IV SCH (08:00)
[2018-09-28] MEDS ORDERED: SUFENTA 0.6MCG/ML BUPIVA 0.125 100 ML ONE (09:11)
[2018-09-28] MEDS ORDERED: BUPIVACAINE 0.25% 30 ML (SENSORCAINE) VIAL ONE ×2 (09:17→20:06)
[2018-09-28] MEDS ORDERED: fentaNYL INJECTION 100 MCG/2 ML AMP ONE ×2 (09:17→19:44)
[2018-09-28] MEDS ORDERED: OXYTOCIN/NORMAL SALINE 500 ML IV ONE (09:23)
[2018-09-28 09:44] LABS: AMPHETAMINE SCREEN, URINE NEGATIVE (NEGATIVE); BARBITURATE SCREEN URINE NEGATIVE (NEGATIVE); BENZODIAZEPINES SCREEN URINE POSITIVE (NEGATIVE); CANNABINOID SCREEN, URINE POSITIVE (NEGATIVE); COCAINE SCREEN URINE NEGATIVE (NEGATIVE); METHADONE STAT NEGATIVE (NEGATIVE); METHAMPHETAMINE SCREEN URINE S NEGATIVE (NEGATIVE); OPIATE SCREEN URINE NEGATIVE (NEGATIVE); OXYCODONE STAT NEGATIVE (NEGATIVE); PROPOXYPHENE STAT NEGATIVE (NEGATIVE); TRICYCLIC ANTIDEPRESSANTS SCRE NEGATIVE (NEGATIVE)
[2018-09-28] MEDS ORDERED: LACTATED RINGERS 1,000 ML IV ONE (10:02)
[2018-09-28] MEDS ORDERED: NALOXONE 0.4 MG/ML 1 ML (NARCAN) VIAL IV PRN (10:15)
[2018-09-28] MEDS ORDERED: CATHETER FLUSH 10 ML SYR IV PRN (10:15)
[2018-09-28] MEDS ORDERED: EPIDURAL (SUFENTA 0.6MCG/ML BUPIVA 0.125%) 100 ML BAG EPI SCH (10:15)
--- NOTE | 2018-09-28 12:44 | NUR ---
CM/SS call came in from [facility] Ramírez Masterson. He stated that he has an open case on the patient for concerns of drug use during . Her other children do not reside with her, their fathers. He has not spoken to the patient at this time.
--- NOTE | 2018-09-28 16:52 | Progress Note ---
Subjective Subjective/Events-last exam Contractions q 2 minutes apart. Patient has epidural and tolerating well. Objective Exam Last Set of Vital Signs Vital Signs Date Time Temp Pulse Resp B/P (MAP) Pulse Ox O2 Delivery O2 Flow Rate FiO2 09/28/18 16:30 70 20 124/56 (78) 100 Room Air 09/28/18 15:45 98.7 Capillary Refill : General: No Acute Distress Other physical findings Cervix: 4cm, 70-80% effaced, -3 station. monitor reveals reactive strip Results/Procedures Lab Laboratory Tests 09/28/18 06:30: White Blood Count 15.1H, Red Blood Count 3.73L, Hemoglobin 11.8, Hematocrit 34L, Mean Corpuscular Volume 91, Mean Corpuscular Hemoglobin 32, Mean Corpuscular H emoglobin Concent 35, Red Cell Distribution Width 13.3, Platelet Count 323, Mean Platelet Volume 10.6H, Neutrophils (%) (Auto) 69, Lymphocytes (%) (Auto) 21, Monocytes (%) (Auto) 7, Eosinophils (%) (Auto) 3, Basophils (%) (Auto) 0, Neutrophils # (Auto) 10.4H, Lymphocytes # (Auto) 3.2, Monocytes # (Auto) 1.1H, Eosinophils # (Auto) 0.4H, Basophils # (Auto) 0.0 09/28/18 07:15: Urine Opiates Screen NEGATIVE, Urine Oxycodone Screen NEGATIVE, Urine Methadone Screen NEGATIVE, Urine Propoxyphene Screen NEGATIVE, Urine Barbiturates Screen NEGATIVE, Ur Tricyclic Antidepressants Screen NEGATIVE, Urine Phencyclidine Screen NEGATIVE, Urine Amphetamines Screen NEGATIVE, Urine Methamphetamines Screen NEGATIVE, Urine Benzodiazepines Screen POSITIVEH, Urine Cocaine Screen NEGATIVE, Urine Cannabinoids Screen POSITIVEH Assessment/Plan Assessment/Plan Assessment & Plan 1. IUP at 39w5d in labor -continue pitocin and labor Clinical Quality Measures DVT/VTE Risk/Contraindication: Risk Factor Score Per Nursin RFS Level Per Nursing on Admit: 1=Low/No VTE PPX HEATHER MELARA MD Sep 28, 2018 16:52
[2018-09-28] MEDS ORDERED: LIDOCAINE PF 2% 5 ML (XYLOCAINE) VIAL ONE ×2 (19:44)
--- NOTE | 2018-09-28 23:21 | OB Labor & Delivery Record ---
L&D History Date of Service Date of Service: Sep 28, 2018 History Expected Date of Delivery: Oct 01, 2019 Gestational Age in Weeks: 39 Hx : 5 Hx Para: 5 Complications Events: Routine care Operative Indications (Cesarea: N/A-Vaginal Delivery Intrapartal Events: None Other Complications Mother is Hepatitis C positive L&D Stage1 Stage One Onset of Labor - Date: Sep 28, 2018 Onset of Labor - Time: 07:13 Monitors and Tracing Monitor Mode: External Heart Rate: 130 Monitor Accelerations: Uniform Monitor Decelerations: Variable Station: -1 Process Engineering Technician Variability: Absent (0-2) Short Term Variability: Present Presentation: Vertex Vital Signs VS - Last 72 Hours, by Label 09/28/18 09/28/18 09/28/18 09/28/18 06:30 07:00 07:20 07:30 Temp 98.1 98.4 Pulse 88 75 71 77 Resp 16 16 18 18 B/P (MAP) 140/68 (92) 120/67 (84) 155/85 (108) 129/77 (94) O2 Delivery Room Air Room Air Room Air Room Air 09/28/18 09/28/18 09/28/18 09/28/18 07:45 08:00 08:15 08:30 Pulse 74 75 74 75 Resp 18 18 18 18 B/P (MAP) 123/58 (79) 123/62 (82) 127/63 (84) 129/68 (88) O2 Delivery Room Air Room Air Room Air Room Air 09/28/18 09/28/18 09/28/18 09/28/18 08:45 09:00 09:15 09:45 Pulse 72 75 78 81 Resp 18 18 18 18 B/P (MAP) 132/70 (90) 138/67 (90) 134/81 (98) 130/82 (98) Pulse Ox 100 O2 Delivery Room Air Room Air Room Air Room Air 09/28/18 09/28/18 09/28/18 09/28/18 09:50 09:55 10:00 10:05 Pulse 81 95 81 72 Resp 18 20 20 18 B/P (MAP) 138/71 (93) 133/66 (88) 135/63 (87) 133/61 (85) Pulse Ox 90 100 100 100 O2 Delivery Room Air Room Air Room Air Room Air 09/28/18 09/28/18 09/28/18 09/28/18 10:08 10:12 10:16 10:24 Pulse 80 85 73 73 Resp 18 18 18 20 B/P (MAP) 141/65 (90) 150/69 (96) 140/67 (91) 161/83 (109) Pulse Ox 100 100 100 96 O2 Delivery Room Air Room Air Room Air Room Air 09/28/18 09/28/18 09/28/18 09/28/18 10:28 10:32 10:36 10:40 Pulse 96 96 80 81 Resp 18 18 18 18 B/P (MAP) 137/63 (87) 129/62 (84) 129/64 (85) 129/64 (85) Pulse Ox 96 96 96 99 O2 Delivery Room Air Room Air Room Air Room Air 09/28/18 09/28/18 09/28/18 09/28/18 11:00 11:15 11:30 11:45 Pulse 71 76 73 84 Resp 18 18 18 18 B/P (MAP) 127/60 (82) 124/58 (80) 112/62 (79) 125/78 (94) Pulse Ox 100 100 100 100 O2 Delivery Room Air Room Air Room Air Room Air 09/28/18 09/28/18 09/28/18 09/28/18 12:00 12:15 12:30 12:45 Pulse 68 80 68 73 Resp 18 18 18 18 B/P (MAP) 125/69 (87) 142/72 (95) 131/64 (86) 141/81 (101) Pulse Ox 100 100 100 99 O2 Delivery Room Air Room Air Room Air Room Air 09/28/18 09/28/18 09/28/18 09/28/18 13:00 13:15 13:30 13:45 Temp 98.8 Pulse 70 71 65 76 Resp 18 18 20 20 B/P (MAP) 134/76 (95) 135/78 (97) 127/57 (80) 117/62 (80) Pulse Ox 99 99 99 100 O2 Delivery Room Air Room Air Room Air Room Air 09/28/18 09/28/18 09/28/18 09/28/18 14:00 14:15 14:30 14:45 Pulse 76 71 70 71 Resp 20 20 20 20 B/P (MAP) 141/75 (97) 133/81 (98) 139/71 (93) 138/70 (92) Pulse Ox 100 100 99 100 O2 Delivery Room Air Room Air Room Air Room Air 09/28/18 09/28/18 09/28/18 09/28/18 15:00 15:15 15:30 15:45 Temp 98.7 Pulse 74 72 70 80 Resp 20 20 20 20 B/P (MAP) 145/66 (92) 141/64 (89) 128/76 (93) 126/66 (86) Pulse Ox 100 100 99 97 O2 Delivery Room Air Room Air Room Air Room Air 09/28/18 09/28/18 09/28/18 09/28/18 16:00 16:15 16:30 16:45 Pulse 74 78 70 78 Resp 20 20 20 20 B/P (MAP) 130/66 (87) 136/65 (88) 124/56 (78) 148/100 (116) Pulse Ox 98 99 100 100 O2 Delivery Room Air Room Air Room Air Room Air 09/28/18 09/28/18 09/28/18 09/28/18 17:00 17:15 17:22 17:45 Temp 97.7 Pulse 72 81 74 83 Resp 20 20 20 20 B/P (MAP) 122/67 (85) 106/57 (73) 97/47 (64) 95/52 (66) Pulse Ox 100 100 100 100 O2 Delivery Room Air Room Air Room Air Room Air 09/28/18 09/28/18 09/28/18 09/28/18 18:00 18:15 18:30 18:45 Pulse 76 68 104 75 Resp 20 20 20 20 B/P (MAP) 103/53 (70) 122/58 (79) 122/58 (79) 131/63 (85) Pulse Ox 100 100 99 99 O2 Delivery Room Air Room Air Room Air Room Air 09/28/18 09/28/18 09/28/18 09/28/18 19:00 19:15 19:30 19:45 Temp 98.9 Pulse 78 66 80 80 Resp 20 20 20 20 B/P (MAP) 154/73 (100) 129/74 (92) 136/75 (95) 135/76 (95) Pulse Ox 99 99 O2 Delivery Room Air Room Air Room Air Room Air 09/28/18 09/28/18 09/28/1819 20:00 20:15 20:30 20:45 Pulse 103 104 93 98 Resp 20 20 20 20 B/P (MAP) 152/75 (100) 156/88 (110) 135/62 (86) 134/71 (92) Pulse Ox 97 100 98 O2 Delivery Room Air Room Air Room Air Room Air 09/28/18 21:00 Pulse 86 Resp 20 B/P (MAP) 128/68 (88) Pulse Ox 99 O2 Delivery Room Air Signs of Distress by FHT Signs of Distress no Rupture of Membranes Spontaneous Ruture of Membrane: No Amniotic Membrane Rupture Time: 712 Amniotic Membrane Fluid Desc.: Clear Vaginal Bleeding Description: None Induction/Anesthesia Epidural Cath Placement - Time: 938 L&D Stage2 Stage Two Stage II Date: Sep 28, 2018 Stage II Time: 22:59 Monitors and Tracing Monitor Mode: External Heart Rate: 130 Monitor Accelerations: Uniform Monitor Decelerations: Variable Halfway Variability: Average (6-10) Short Term Variability: Present Position: Left Occiput Anterior Presentation: Vertex Signs of Distress by FHT Signs of Distress no Cord Descript/Complications Cord Vessel Description: 3 Vessels Delivery Type Infant Delivery Method: Spontaneous Vaginal Anterior Shoulder: Left Episiotomy/Perineal Laceration Laceraction(s)/Extensions: No Condition of Infant Delivery 1 minute Comment: 8 5 minute Comment: 9 Condition of Infant Condition of Infant: Living Exam: No Observed Abnormalities Resuscitation Resuscitation: N/A - Spontaneous Resp L&D Stage3 Stage Three Stage III Date: Sep 28, 2018 Stage III Time: 23:06 Pictocin Pitocin Administration mu/min: 24 Pitocin ml/hr: 24 Placenta Delivery Placenta Delivery: Spontaneous Delivery Summary Summary Estimated blood loss (mL): 100 Condition of Delivery Examined: Cervix Examined Post Hemorrhage: No Intervention Required none HEATHER MELARA MD Sep 28, 2018 23:20
[2018-09-28] MEDS ORDERED: WITCH HAZEL(TUCKS) 40 EA JAR TOP PRN (23:30)
[2018-09-28] MEDS ORDERED: BENZOCAINE/MENTHOL (DERMOPLAST) 56 ML CAN TP PRN (23:30)
[2018-09-28] MEDS ORDERED: MEASLES,MUMPS,RUBELLA 1 EA INJ SQ ONE (23:30)
[2018-09-28] MEDS ORDERED: TETANUS,DIPTH,PERTUSS P/F (BOOSTRIX) 0.5 ML VIAL IM ONE (23:30)
[2018-09-29] VITALS (8 sets, daily range): BP systolic 102–142; BP diastolic 58–85
[2018-09-29] MEDS: ACETAMINOPHEN 500 MG TAB (TYLENOL) PO SCH ×4 (00:06→20:34)
[2018-09-29] MEDS: IBUPROFEN 600 MG (MOTRIN) TAB PO SCH ×4 (00:07→17:15)
--- NOTE | 2018-09-29 00:30 | NUR ---
Pt. was able to ambulate to bathroom without difficulty. Positive void noted. Pt. transferred to room 309 via wheelchair. Oriented to room, call light, room service, and thermostat. Ice water and folder provided. No questions or concerns voiced at this time. will continue to monitor.
[2018-09-29] MEDS ORDERED: hydrOXYzine (VISTARIL/ATARAX) 25 MG capsule/tablet ONE (05:49)
[2018-09-29] MEDS ORDERED: CATHETER FLUSH 10 ML SYR IV SCH (06:00)
[2018-09-29] MEDS: hydrOXYzine (VISTARIL/ATARAX) 25 MG capsule/tablet PO SCH ×3 (06:00→22:14)
[2018-09-29 06:15] LABS: BASOPHILS % (AUTO) 0 % (0-10); EOSINOPHILS # (AUTO) 0.2 10^3/uL (0.0-0.3); EOSINOPHILS % (AUTO) 1 % (0-10); HEMATOCRIT 39 % (35-52); HEMOGLOBIN 13.3 G/DL (11.5-16.0); LYMPHOCYTES # (AUTO) 2.7 X 10^3 (1.0-4.0); LYMPHOCYTES % (AUTO) 14 % (12-44); MEAN CORPUSCULAR HEMOGLOBIN 31 PG (25-34); MEAN CORPUSCULAR HGB CONC 34 G/DL (32-36); MEAN CORPUSCULAR VOLUME 91 FL (80-99); MEAN PLATELET VOLUME 10.6 FL (7.4-10.4); MONOCYTES # (AUTO) 1.1 X 10^3 (0.0-1.0); MONOCYTES % (AUTO) 6 % (0-12); NEUTROPHILS # (AUTO) 15.8 X 10^3 (1.8-7.8); NEUTROPHILS % (AUTO) 79 % (42-75); PLATELET COUNT 346 10^3/uL (130-400); RED CELL DISTRIBUTION WIDTH 13.7 % (10.0-14.5); WHITE BLOOD COUNT 19.8 10^3/uL (4.3-11.0)
--- NOTE | 2018-09-29 07:31 | Progress Note ---
Subjective Subjective/Events-last exam No major complaints. Having uterine cramping. Taking tylenol and ibuprofen for the pain. Objective Exam Last Set of Vital Signs Vital Signs Date Time Temp Pulse Resp B/P (MAP) Pulse Ox O2 Delivery O2 Flow Rate FiO2 09/29/18 05:45 97.7 68 18 102/67 (79) 98 Room Air Capillary Refill : I&O Intake and Output 09/29/18 00:00 Intake Total 1000 ml Output Total 1700 ml Balance -700 ml Intake IV Total 1000 ml Output Urine Total 1700 ml Daily Weight Change No General: No Acute Distress Lungs: Clear to Auscultation Heart: Regular Rate Abdomen: Soft (with uterus firm) Results/Procedures Lab Laboratory Tests 09/29/18 06:02: White Blood Count 19.8H, Red Blood Count 4.29L, Hemoglobin 13.3, Hematocrit 39, Mean Corpuscular Volume 91, Mean Corpuscular Hemoglobin 31, Mean Corpuscular Hemoglobin Concent 34, Red Cell Distribution Width 13.7, Platelet Count 346, Mean Platelet Volume 10.6H, Neutrophils (%) (Auto) 79H, Lymphocytes (%) (Auto) 14, Monocytes (%) (Auto) 6, Eosinophils (%) (Auto) 1, Basophils (%) (Auto) 0, Neutrophils # (Auto) 15.8H, Lymphocytes # (Auto) 2.7, Monocytes # (Auto) 1.1H, Eosinophils # (Auto) 0.2, Basophils # (Auto) 0.0 Assessment/Plan Assessment/Plan Assessment & Plan 1. IUP at 39w5d --delivered vaginally -continue routine PP care orders -resident services manager consult Clinical Quality Measures DVT/VTE Risk/Contraindication: Risk Factor Score Per Nursin RFS Level Per Nursing on Admit: 1=Low/No VTE PPX HEATHER MELARA MD Sep 29, 2018 07:31
[2018-09-29] MEDS: PRENATAL VITAMIN 1 EA TAB PO SCH (09:05)
[2018-09-29] MEDS: DOCUSATE SODIUM 100 MG (COLACE) CAP PO SCH ×2 (09:05→22:14)
--- NOTE | 2018-09-29 10:50 | NUR ---
1050-PT CALLED RN TO ROOM, C/O ABDOMINAL CRAMPING, IN MOTHERS ARMS, VISITORS AT BEDSIDE. EXPLAINED TO PT THAT MOTRIN AND TYLENOL COULD BE GIVEN AT 1130 AND IS DUE AT 1200. WARM BLANKETS AND HEATING PAD PROVIDED TO PT FOR COMFORT. PT VERY BELLIGERENT, YELLING AT RN IN REGARDS TO NOT HAVING PAIN MEDS AVAILABLE TO TAKE AFTER DELIVERY. PT STATES "this hospital is fucking worthless and i will never come back here, how can anyone expect someone who just had a baby to not have pain." EXPLAINED TO PT THAT MOTRIN AND TYLENOL ARE PRESCRIBED FOR PAIN AND NO ORDERS FOR OPIATES HAVE BEEN PRESCRIBED AT THIS TIME BUT THAT MOTRIN WOULD BE THE BEST CHOICE TO HELP WITH HER UTERINE CRAMPING. 1055- RN WALKED BACK IN TO ROOM AFTER GETTING BLANKET TO COVER K-PAD, PT REPORTS SHE JUST CALLED DR MELARA AND TOLD HIM HOW MUCH PAIN SHE WAS IN AND THAT SHE NEEDED PAIN MEDS ORDERED, PT ALSO REPORTS SHE IS GOING TO CALL A DOCTOR IN [place] THAT SHE ALSO SAW A FEW TIMES WHILE TO GET PAIN MEDS ORDERED. TRIED TO EDUCATE PT ABOUT THE RATIONALE OF NEW OPIATE USE AND STANDARDS IN HOSPITALS AND PRESCRIBED BY PHYSICIANS. PT CONTINUES TO YELL AND CUSS ABOUT " HOW STUPID THIS HOSPITAL AND STAFF ARE". PT'S VISITORS LAUGHING IN REGARDS TO PT'S COMMENTS AND C/O. 1055- DR MELARA CALLED BY THIS RN, UPDATED DR ABOUT SITUATION WITH PT, ORDERS FOR MOTRIN AND TYLENOL TO BE GIVEN NOW AT 1100. 1100- UPDATED PT ABOUT NEW ORDERS AND PLAN OF CARE, MOTRIN AND TYLENOL GIVEN NOW, TRIED TO VISIT WITH PT ABOUT OTHER ALTERNATIVES TO RELIEVE ABDOMINAL CRAMPING INSTEAD OF PAIN MEDS, PT IGNORING RN, RN OFFERED TO RETURN AND VISIT WITH PT IF AND WHEN SHE WAS READY.
--- NOTE | 2018-09-29 11:20 | NUR ---
PT AMBULATED DOWNSTAIRS WITH VISITOR, REMAINS IN ROOM WITH SECOND BRACELET ADAIR.
--- NOTE | 2018-09-29 11:33 | NUR ---
PT AMBULATED BACK TO ROOM WHILE LAUGHING AND JOKING AROUND WITH VISITOR, STILL STATING WHILE AMBULATING IN HALLWAYS "HOW STUPID THIS HOSPITAL AND STAFF ARE FOR NOT PRESCRIBING PAIN MEDS FOR HER AFTER DELIVERY". PT'S VISITOR AGREEING WITH HER, WHEN ASK IF PTS ABDOMINAL CRAMPING WAS ANY BETTER, PT STATED THE MEDS DID NOT HELP WITH PAIN AT ALL. PT TEXTING ON CELLPHONE WHILE SITTING UP IN BED, LAUGHING AND JOKING WITH FRIENDS, STATES PAIN 8 ON 1/10 SCALE.
--- NOTE | 2018-09-29 13:40 | NUR ---
COMPUTATOR HERE VISITING WITH PT AND FARRAH RN.
--- NOTE | 2018-09-29 14:06 | Anesthesia-Regional Post-Op ---
Regional Patient Condition Mental Status: Alert, Oriented x3 Circulation: Same as Pre-Op Headache: Absent Sensation: Full Recovery Motor Block: Absent Post Op Complications Complications None Follow Up Care/Instructions Patient Instructions None needed. Anesthesia/Patient Condition Patient is doing well, no complaints, stable vital signs, no apparent adverse anesthesia problems. LAWANDA RICHTER DO Sep 29, 2018 14:06
--- NOTE | 2018-09-29 14:17 | NUR ---
CM/SS responded to consult. Spoke to the patient briefly as she was busy with visitors and lunch. She reported that she felt she had necessity items for baby ie) bassinet, diapers, wipes, and car seat. She did not feel she had any needs for baby at this time. Spoke with DCF (Ramírez Masterson) he intends to just follow up with the family after discharge from the hospital at the home where they are staying with a friend (Jesica). DCF is aware she came in with a positive UDS for Benzodiazepines and THC. He was unsure if her other children had State involvement or just lived with their father.
[2018-09-30 00:11] VITALS: BP 104/61
[2018-09-30] MEDS: IBUPROFEN 600 MG (MOTRIN) TAB PO SCH ×3 (00:11→11:57)
[2018-09-30] MEDS: ACETAMINOPHEN 500 MG TAB (TYLENOL) PO SCH ×2 (04:00→11:57)
[2018-09-30] MEDS: hydrOXYzine (VISTARIL/ATARAX) 25 MG capsule/tablet PO SCH (04:03)
[2018-09-30 06:25] VITALS: BP 109/67
--- NOTE | 2018-09-30 07:20 | Discharge Summary ---
Diagnosis/Chief Complaint Date of Admission Sep 28, 2018 at 06:12 Date of Discharge September 30, 2018 Admission Diagnosis Admission Diagnosis 1. Intrauterine at term 39 weeks 5 days 2. Maternal hepatitis C 3. Maternal positive for marijuana and benzodiazepines Discharge Diagnosis 1. Intrauterine at term 39 weeks 5 days 2. Maternal hepatitis C 3. Maternal positive for marijuana and benzodiazepines Chief Complaint/HPI Chief Complaint/HPI 27-year-old 5 now term 5 who initially presented to labor and delivery at 39 weeks 5 days gestation for induction of labor. Patient's care had been complicated by maternal hepatitis C and illegal drug use. She had been seen initially by physician in [facility] and was referred to [facility] school art [facility] where she underwent ultrasounds and found to have no abnormal findings. Discharge Summary-OBS Procedures 1. Epidural per anesthesia 2. Spontaneous vaginal delivery Discharge Physical Examination Allergies: Coded Allergies: cefuroxime (Verified Allergy, Unknown, Rash, 09/28/18) iodine (Verified Allergy, Unknown, Rash, 09/28/18) latex (Verified Allergy, Unknown, Rash, 09/28/18) Vitals & I&Os Vital Sign - Last 12Hours Date Time Temp Pulse Resp B/P (MAP) Pulse Ox O2 Delivery O2 Flow Rate FiO2 09/30/18 06:25 98.3 73 18 109/67 (81) 98 Room Air General Appearance: No Acute Distress Respiratory: Clear to Auscultation Cardiovascular: Regular Rate Abdominal: Soft (With uterus firm) Hospital Course Was the Problem List Reviewed?: Yes Patient was admitted in the morning of September 28, 2018 for induction of labor. Patient underwent amniotomy with with AmniHook. There was no scalp electrode placed due to maternal hepatitis C. She required Pitocin augmentation. She also requested epidural during the course of labor. Ultimately she dilated slowly but went on to completion. I completion she was allowed to push and delivered after to contractions a term viable male. received Apgars of 8 at 1 minute and 9 at 5 minutes. There was no episiotomy. Following delivery she underwent routine care orders. Patient tolerated regular diet. She was without chest pain or shortness of breath. She did complain of uterine cramping at this was controlled with ibuprofen. Her hemoglobin the morning after delivery was 13.3 compared to 11.8 on admission. Patient was felt ready for dismissal during the morning of September 30, 2018. Discharge Instructions to patient/family Please see electronic discharge instructions given to patient. Discharge Medications Reviewed and agree with Discharge Medication list on patient's Discharge Instruction sheet Clinical Quality Measures DVT/VTE Risk/Contraindication: Risk Factor Score Per Nursin RFS Level Per Nursing on Admit: 1=Low/No VTE PPX HEATHER MELARA MD Sep 30, 2018 07:20
[2018-09-30] MEDS ORDERED: IBUP-844 PO (07:21)
--- NOTE | 2018-09-30 07:23 | Discharge Inst-Women's Service ---
Discharge Inst-Women's Serv Depart Medication/Instructions New, Converted or Re-Newed RX: Transmitted to Pharmacy ([facility] in [place]) Consults/Follow Up Additional Follow Up: Yes (Dr Melara at [facility] in 6 weeks.) Activity Activity: Activity as Tolerated Driving Instructions: You May Drive Nothing Inside Vagina: No [place] (for 6 weeks.) Return to The Hospital For: as below Symptoms to Report to : Bleeding Excessive, Fever Over 101 Degrees F, Vaginal Discharge Foul For Any Problems or Questions: Contact Your Physician HEATHER MELARA MD Sep 30, 2018 07:23
--- NOTE | 2018-09-30 09:35 | NUR ---
report received from LOLY [place]. care assumed of pt.
--- NOTE | 2018-09-30 09:54 | NUR ---
ambulating off unit with family members for fresh air.
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
[2018-09-30 11:57] VITALS: BP 127/64
[2018-09-30] MEDS: PRENATAL VITAMIN 1 EA TAB PO SCH (11:57)
[2018-09-30] MEDS: DOCUSATE SODIUM 100 MG (COLACE) CAP PO SCH (11:57)
--- NOTE | 2018-09-30 11:57 | NUR ---
V taken. initial shift assessment completed, see interventions for further. scheduled medications given, see eMar for further.
--- NOTE | 2018-09-30 11:59 | NUR ---
dismissal instructions given, states understanding. reviewed follow up appointment and medications. signature page signed,placed on chart.
--- NOTE | 2018-09-30 13:30 | NUR ---
pt ambulated to private vehicle with staff and family @ side. secured in rear facing car seat. pt stable with no sx's distress noted.
== END 2018-09-30 13:30 | disposition home or self-care (01) | DRG 806 ==
LOC: LDRP 06:12
PROVIDERS: ADMIT Family Medicine; ATTEND Family Medicine
PROC: 10E0XZZ Delivery of Products of Conception, External Approach (ICD-10-PCS; principal; 2018-09-28)
PROC: 10907ZC Drainage of Amniotic Fluid, Therapeutic from Products of Conception, Via Natural or Artificial Opening (ICD-10-PCS; 2018-09-28)
DX: O98.42 Viral hepatitis complicating childbirth (principal); B19.20 Unspecified viral hepatitis C without hepatic coma; O99.324 Drug use complicating childbirth; F12.90 Cannabis use, unspecified, uncomplicated; O99.334 Smoking (tobacco) complicating childbirth; F17.210 Nicotine dependence, cigarettes, uncomplicated; Z3A.39 39 weeks gestation of pregnancy; Z37.0 Single live birth; Z91.040 Latex allergy status
CPT/HCPCS: 36415; 80306; 83033; 85025; 86850; 86900; 86901